=== PATIENT | female | born 1965 | race African-American/Black ===

== ENCOUNTER 2016-12-10 14:33 | Inpatient (IN) | payer MEDICAID, OTHER ==
[~2016-12-10] VITALS: Ht 160 cm; Wt 101.7 kg
[~2016-12-10 14:33] MED LIST: AMOXI1255L PO; DSS100 PO; OMEP20 PO; QUET200T PO; SERT100T12 PO; VITAD1000 PO
[2016-12-10 15:52] LABS: BASOPHILS % (AUTO) 1.2 % (0.0-2.0); EOSINOPHILS % (AUTO) 0.7 % (1.0-6.0); HEMATOCRIT 32.9 % (36-46); HEMOGLOBIN 10.7 g/dL (12.0-16.0); LYMPHOCYTES # (AUTO) 1.5 K/uL (1.0-4.8); LYMPHOCYTES % (AUTO) 23.1 % (22.0-44.0); MEAN CORPUSCULAR HEMOGLOBIN 28.8 pg (26.0-34.0); MEAN CORPUSCULAR HGB CONC 32.6 G/dL (31.0-37.0); MEAN CORPUSCULAR VOLUME 88 fL (80-100); MONOCYTES # (AUTO) 0.6 K/uL (0.1-1.0); MONOCYTES % (AUTO) 9.4 % (2.0-9.0); NEUTROPHILS # (AUTO) 4.3 K/uL (1.8-7.7); NEUTROPHILS % (AUTO) 65.6 % (40.0-70.0); PLATELET COUNT (AUTO) 383 K/uL (150-450); RED BLOOD CELL COUNT(AUTO) 3.74 MIL/uL (4.00-5.20); RED CELL DISTRIBUTION WIDTH 17.6 % (11.5-14.5); WHITE BLOOD COUNT (AUTO) 6.6 K/uL (4.5-11.0)
[2016-12-10] MEDS ORDERED: LORazepam 2 MG TABLET PO ONE (16:30)
[2016-12-10 16:44] LABS: ANION GAP 8 mmol/L (8-16); CALCIUM, TOTAL 8.9 mg/dL (8.8-10.5); CARBON DIOXIDE 25 mmol/L (22-29); CHLORIDE 103 mmol/L (98-107); CREATININE 0.84 mg/dL (0.60-1.30); GLOMERULAR FILTR. RATE CALC > 60 mL/min (>60); POTASSIUM 4.1 mmol/L (3.5-5.1); SODIUM SERUM 136 mmol/L (136-145); UREA NITROGEN, BLOOD 10 mg/dL (7-18)
[2016-12-10 17:02] LABS: ALANINE AMINOTRANSFERASE 48 U/L (12-78); ALBUMIN 3.9 g/dL (3.4-5.0); ASPARTATE AMINOTRANSFERASE 24 U/L (15-37); BILIRUBIN,TOTAL 0.1 mg/dL (0.1-1.0)
[2016-12-10] MEDS ORDERED: LORazepam 2 MG TABLET PO PRN (17:45)
[2016-12-10] MEDS ORDERED: ACETAMINOPHEN 325 MG TABLET PO PRN (17:45)
[2016-12-10] MEDS ORDERED: MAG HYDROX/AL HYDROX/SIMETH ES 30 ML SUSPENSION UDCUP PO PRN (17:45)
[2016-12-10] MEDS ORDERED: HALOPERIDOL 5 MG TABLET PO PRN (17:45)
[2016-12-10] MEDS ORDERED: MAGNESIUM HYDROXIDE SUSPENSION 30 ML UDCUP PO PRN (17:45)
[2016-12-10] MEDS ORDERED: ZOLPIDEM TARTRATE 10 MG TABLET PO PRN (17:45)
[2016-12-10 22:24] VITALS: BP 116/65
[2016-12-10] MEDS ORDERED: PNEUMOCOCCAL VACCINE POLYVALENT 0.5 ML VIAL [PPSV23] IM ONE (22:30)
[2016-12-10] MEDS ORDERED: INFLUENZA VIRUS VACCINE QVS 2016-17 (3YR+)/PF 60 MCG/0.5 ML SYRINGE IM ONE (22:30)
[2016-12-11 06:21] VITALS: BP 140/69
[2016-12-11 08:22] VITALS: BP 124/71
[2016-12-11] MEDS ORDERED: BACITRACIN 28.4 GM OINTMENT TP PRN (08:45)
[2016-12-11] MEDS ORDERED: LOPERAMIDE HCL 2 MG CAPSULE PO PRN (08:45)
[2016-12-11] MEDS ORDERED: IBUPROFEN 600 MG TABLET PO PRN (08:45)
[2016-12-11] MEDS ORDERED: BENZOCAINE/MENTHOL LOZENGE MM PRN (08:45)
[2016-12-11] MEDS ORDERED: MAG HYDROX/AL HYDROX/SIMETH ES 30 ML SUSPENSION UDCUP PO PRN (08:45)
[2016-12-11] MEDS ORDERED: ACETAMINOPHEN 325 MG TABLET PO PRN (08:45)
[2016-12-11] MEDS ORDERED: ONDANSETRON HCL 4 MG TABLET PO PRN (08:45)
[2016-12-11] MEDS ORDERED: PETROLATUM,WHITE 71 GM JELLY TP PRN (08:45)
[2016-12-11] MEDS ORDERED: CloNIDine HCL 0.1 MG TABLET PO PRN (08:45)
[2016-12-11] MEDS ORDERED: MAGNESIUM HYDROXIDE SUSPENSION 30 ML UDCUP PO PRN (08:45)
[2016-12-11] MEDS: CHOLECALCIFEROL (VIT D3) 1,000 UNITS TABLET PO SCH (09:25)
[2016-12-11 16:11] VITALS: BP 126/76
[2016-12-11] MEDS ORDERED: QUEtiapine FUMARATE 200 MG ER TABLET PO SCH (21:00)
[2016-12-11] MEDS: QUEtiapine FUMARATE 200 MG TABLET PO SCH (21:21)
[2016-12-12 00:24] VITALS: BP 128/63
[2016-12-12 03:20] VITALS: BP 120/83
[2016-12-12 08:13] VITALS: BP 153/89
[2016-12-12] MEDS ORDERED: SERTRALINE HCL 100 MG TABLET PO SCH (09:00)
[2016-12-12] MEDS: QUEtiapine FUMARATE 200 MG TABLET PO SCH (09:11)
[2016-12-12] MEDS: CHOLECALCIFEROL (VIT D3) 1,000 UNITS TABLET PO SCH (09:11)
[2016-12-12 10:53] VITALS: BP 126/77
[2016-12-12] MEDS ORDERED: VITAD1000 PO (14:37)
== END 2016-12-12 15:44 | disposition home or self-care (01) | DRG 750 ==
LOC: EMS 14:34 → B2S 20:50
PROVIDERS: ADMIT Psychiatry & Neurology Psychiatry; ATTEND Psychiatry & Neurology Psychiatry
DX: F25.9 Schizoaffective disorder, unspecified (principal); R45.851 Suicidal ideations; E55.9 Vitamin D deficiency, unspecified; K21.9 Gastro-esophageal reflux disease without esophagitis; G47.00 Insomnia, unspecified; E66.9 Obesity, unspecified; K59.00 Constipation, unspecified; Z88.8 Allergy status to other drugs, medicaments and biological substances; Z79.899 Other long term (current) drug therapy; Z98.51 Tubal ligation status; Z68.39 Body mass index [BMI] 39.0-39.9, adult; Z81.8 Family history of other mental and behavioral disorders; Z28.21 Immunization not carried out because of patient refusal
CPT/HCPCS: 99285; G0480

== ENCOUNTER 2017-01-19 12:49 | Inpatient (IN) | payer MEDICAID, OTHER ==
[~2017-01-19] VITALS: Ht 160 cm; Wt 100.7 kg
[~2017-01-19 12:49] MED LIST changes: -AMOXI1255L PO; -DSS100 PO; -OMEP20 PO
[2017-01-19] MEDS ORDERED: LORA2TAB2 PO (13:38)
[2017-01-19] MEDS ORDERED: LURA40 PO (13:38)
[2017-01-19] MEDS ORDERED: DIPH25 PO (13:38)
[2017-01-19] MEDS ORDERED: AMOX TR/POT CLAV 875 MG/125 MG TABLET PO ONE (14:45)
[2017-01-19] MEDS ORDERED: HYDROCODONE/ACETAMINOPHEN 5-325 MG TABLET PO ONE (14:45)
[2017-01-19] MEDS ORDERED: PERTUSS(ACELL),DIPH,TET VAC/PF 0.5 ML VIAL IM ONE (14:45)
[2017-01-19] MEDS ORDERED: LORazepam 1 MG TABLET PO ONE (15:15)
[2017-01-19 15:31] LABS: BASOPHILS # (AUTO) 0.01 K/uL (0.00-0.20); BASOPHILS % (AUTO) 0.1 % (0.0-2.0); EOSINOPHILS # (AUTO) 0.05 K/uL (0.00-0.70); EOSINOPHILS % (AUTO) 0.86 % (1.0-6.0); HEMATOCRIT 38.4 % (36-46); HEMOGLOBIN 12.6 g/dL (12.0-16.0); LYMPHOCYTES # (AUTO) 1.8 K/uL (1.0-4.8); LYMPHOCYTES % (AUTO) 28.8 % (22.0-44.0); MEAN CORPUSCULAR HEMOGLOBIN 28.7 pg (26.0-34.0); MEAN CORPUSCULAR HGB CONC 32.8 G/dL (31.0-37.0); MEAN CORPUSCULAR VOLUME 87 fL (80-100); MONOCYTES # (AUTO) 0.3 K/uL (0.1-1.0); MONOCYTES % (AUTO) 5.1 % (2.0-9.0); PLATELET COUNT (AUTO) 267 K/uL (150-450); RED BLOOD CELL COUNT(AUTO) 4.39 MIL/uL (4.00-5.20); RED CELL DISTRIBUTION WIDTH 17.7 % (11.5-14.5); WHITE BLOOD COUNT (AUTO) 6.1 K/uL (4.5-11.0)
[2017-01-19] MEDS ORDERED: HALOPERIDOL 5 MG TABLET PO PRN (16:00)
[2017-01-19 16:04] LABS: ANION GAP 9 mmol/L (8-16); CALCIUM, TOTAL 9.4 mg/dL (8.8-10.5); CARBON DIOXIDE 27 mmol/L (22-29); CHLORIDE 102 mmol/L (98-107); CREATININE 0.95 mg/dL (0.60-1.30); GLOMERULAR FILTR. RATE CALC > 60 mL/min (>60); POTASSIUM 4.3 mmol/L (3.5-5.1); SODIUM SERUM 138 mmol/L (136-145); UREA NITROGEN, BLOOD 6 mg/dL (7-18)
[2017-01-19 16:14] LABS: ALANINE AMINOTRANSFERASE 34 U/L (12-78); ALBUMIN 3.9 g/dL (3.4-5.0); ASPARTATE AMINOTRANSFERASE 19 U/L (15-37); BILIRUBIN,TOTAL 0.2 mg/dL (0.1-1.0); TOTAL PROTEIN, SERUM 8.2 g/dL (6.4-8.2)
[2017-01-19] MEDS ORDERED: SERTRALINE HCL 100 MG TABLET PO SCH (17:00)
[2017-01-19] MEDS: DiphenhydrAMINE HCL 25 MG CAPSULE PO SCH (17:04)
[2017-01-19 18:31] VITALS: BP 139/80
[2017-01-19] MEDS ORDERED: PNEUMOCOCCAL VACCINE POLYVALENT 0.5 ML VIAL [PPSV23] IM ONE (20:30)
[2017-01-19] MEDS ORDERED: INFLUENZA VIRUS VACCINE QVS 2016-17 (3YR+)/PF 60 MCG/0.5 ML SYRINGE IM ONE (20:30)
[2017-01-19] MEDS ORDERED: MAGNESIUM HYDROXIDE SUSPENSION 30 ML UDCUP PO PRN (21:45)
[2017-01-19] MEDS ORDERED: MAG HYDROX/AL HYDROX/SIMETH ES 30 ML SUSPENSION UDCUP PO PRN (21:45)
[2017-01-19] MEDS ORDERED: CloNIDine HCL 0.1 MG TABLET PO PRN (21:45)
[2017-01-19] MEDS ORDERED: PETROLATUM,WHITE 71 GM JELLY TP PRN (21:45)
[2017-01-19] MEDS ORDERED: BENZOCAINE/MENTHOL LOZENGE MM PRN (21:45)
[2017-01-19] MEDS ORDERED: ONDANSETRON HCL 4 MG TABLET PO PRN (21:45)
[2017-01-19] MEDS ORDERED: ACETAMINOPHEN 325 MG TABLET PO PRN (21:45)
[2017-01-19] MEDS ORDERED: IBUPROFEN 600 MG TABLET PO PRN (21:45)
[2017-01-19] MEDS ORDERED: BACITRACIN 28.4 GM OINTMENT TP PRN (21:45)
[2017-01-19] MEDS ORDERED: LOPERAMIDE HCL 2 MG CAPSULE PO PRN (21:45)
[2017-01-19] MEDS: QUEtiapine FUMARATE 200 MG TABLET PO SCH (22:17)
[2017-01-19] MEDS: ZOLPIDEM TARTRATE 10 MG TABLET PO PRN (23:56)
[2017-01-20 00:32] VITALS: BP 138/80
[2017-01-20 08:23] VITALS: BP 118/70
[2017-01-20] MEDS: LORazepam 2 MG TABLET PO PRN (09:05)
[2017-01-20] MEDS: CHOLECALCIFEROL (VIT D3) 1,000 UNITS TABLET PO SCH (09:05)
[2017-01-20] MEDS: QUEtiapine FUMARATE 200 MG TABLET PO SCH ×2 (09:06→20:16)
[2017-01-20] MEDS: DiphenhydrAMINE HCL 25 MG CAPSULE PO SCH ×2 (09:06→16:15)
[2017-01-20] MEDS: SERTRALINE HCL 100 MG TABLET PO SCH (09:06)
[2017-01-20 16:04] VITALS: BP 127/78
[2017-01-20] MEDS ORDERED: QUEtiapine FUMARATE 200 MG TABLET PO SCH (21:00)
[2017-01-20] MEDS: ZOLPIDEM TARTRATE 10 MG TABLET PO PRN (21:02)
[2017-01-21 00:25] VITALS: BP 110/81
[2017-01-21] MEDS: LORazepam 2 MG TABLET PO PRN (01:41)
[2017-01-21 08:23] VITALS: BP 148/85
[2017-01-21] MEDS: QUEtiapine FUMARATE 200 MG TABLET PO SCH ×2 (08:36→20:41)
[2017-01-21] MEDS: DiphenhydrAMINE HCL 25 MG CAPSULE PO SCH ×2 (08:36→16:23)
[2017-01-21] MEDS: CHOLECALCIFEROL (VIT D3) 1,000 UNITS TABLET PO SCH (08:36)
[2017-01-21] MEDS: SERTRALINE HCL 100 MG TABLET PO SCH (08:36)
[2017-01-21] MEDS ORDERED: QUEtiapine FUMARATE 200 MG TABLET PO SCH (09:00)
[2017-01-21 16:07] VITALS: BP 128/73
[2017-01-21] MEDS: ZOLPIDEM TARTRATE 10 MG TABLET PO PRN (22:14)
[2017-01-22 05:38] VITALS: BP 136/85
[2017-01-22] MEDS ORDERED: SERT100T12 PO (08:53)
[2017-01-22 09:00] VITALS: BP 124/75
[2017-01-22] MEDS: CHOLECALCIFEROL (VIT D3) 1,000 UNITS TABLET PO SCH (09:06)
[2017-01-22] MEDS: DiphenhydrAMINE HCL 25 MG CAPSULE PO SCH (09:06)
[2017-01-22] MEDS: SERTRALINE HCL 100 MG TABLET PO SCH (09:07)
[2017-01-22] MEDS: QUEtiapine FUMARATE 200 MG TABLET PO SCH (09:07)
== END 2017-01-22 10:35 | disposition home or self-care (01) | DRG 750 ==
LOC: EMS 12:50 → B2S 16:32
DX: F25.1 Schizoaffective disorder, depressive type (principal); R45.851 Suicidal ideations; E55.9 Vitamin D deficiency, unspecified; I10 Essential (primary) hypertension; E78.5 Hyperlipidemia, unspecified; I25.10 Atherosclerotic heart disease of native coronary artery without angina pectoris; E66.9 Obesity, unspecified; K59.00 Constipation, unspecified; K21.9 Gastro-esophageal reflux disease without esophagitis; G47.00 Insomnia, unspecified; M54.5 Low back pain; Z98.51 Tubal ligation status; Z88.8 Allergy status to other drugs, medicaments and biological substances; Z79.899 Other long term (current) drug therapy; Z68.39 Body mass index [BMI] 39.0-39.9, adult
CPT/HCPCS: 99285; G0480

== ENCOUNTER 2017-03-24 16:08 | Inpatient (IN) | payer MEDICAID, OTHER ==
[~2017-03-24] VITALS: Ht 160 cm; Wt 100.9 kg
[~2017-03-24 16:08] MED LIST changes: +DIPH25 PO
[2017-03-24 16:53] LABS: BASOPHILS % (AUTO) 1.4 % (0.0-2.0); EOSINOPHILS % (AUTO) 0.7 % (1.0-6.0); HEMATOCRIT 37.3 % (36-46); HEMOGLOBIN 11.7 g/dL (12.0-16.0); LYMPHOCYTES # (AUTO) 1.7 K/uL (1.0-4.8); LYMPHOCYTES % (AUTO) 23.4 % (22.0-44.0); MEAN CORPUSCULAR HEMOGLOBIN 27.5 pg (26.0-34.0); MEAN CORPUSCULAR HGB CONC 31.2 G/dL (31.0-37.0); MEAN CORPUSCULAR VOLUME 88 fL (80-100); MONOCYTES # (AUTO) 0.6 K/uL (0.1-1.0); MONOCYTES % (AUTO) 8.1 % (2.0-9.0); NEUTROPHILS # (AUTO) 4.9 K/uL (1.8-7.7); NEUTROPHILS % (AUTO) 66.4 % (40.0-70.0); PLATELET COUNT (AUTO) 366 K/uL (150-450); RED BLOOD CELL COUNT(AUTO) 4.25 MIL/uL (4.00-5.20); RED CELL DISTRIBUTION WIDTH 16.4 % (11.5-14.5); WHITE BLOOD COUNT (AUTO) 7.4 K/uL (4.5-11.0)
[2017-03-24 17:13] LABS: ANION GAP 11 mmol/L (8-16); CALCIUM, TOTAL 9.3 mg/dL (8.8-10.5); CARBON DIOXIDE 24 mmol/L (22-29); CHLORIDE 101 mmol/L (98-107); CREATININE 0.83 mg/dL (0.60-1.30); GLOMERULAR FILTR. RATE CALC > 60 mL/min (>60); POTASSIUM 3.9 mmol/L (3.5-5.1); SODIUM SERUM 136 mmol/L (136-145); UREA NITROGEN, BLOOD 8 mg/dL (7-18)
[2017-03-24 17:19] LABS: ALANINE AMINOTRANSFERASE 31 U/L (12-78); ALBUMIN 4.1 g/dL (3.4-5.0); ASPARTATE AMINOTRANSFERASE 19 U/L (15-37); BILIRUBIN,TOTAL 0.1 mg/dL (0.1-1.0); TOTAL PROTEIN, SERUM 8.6 g/dL (6.4-8.2)
[2017-03-24] MEDS ORDERED: ZOLPIDEM TARTRATE 10 MG TABLET PO PRN (18:00)
[2017-03-24 19:15] VITALS: BP 149/80
[2017-03-24] MEDS: LORazepam 2 MG TABLET PO PRN (20:24)
[2017-03-24 21:24] LABS: APPEARANCE,URINE TURBID (CLEAR); GLUCOSE, URINE (UA) NEGATIVE (NEGATIVE); KETONES,URINE NEGATIVE (NEGATIVE); PROTEIN,URINE NEGATIVE (NEGATIVE)
[2017-03-24] MEDS: HALOPERIDOL 5 MG TABLET PO PRN (21:29)
[2017-03-24 21:30] LABS: ADD UA MICROSCOPIC YES; LEUKOCYTE ESTERASE ,URINE TRACE (NEGATIVE); OCCULT BLOOD,URINE TRACE (NEGATIVE); SQUAMOUS EPITHELIAL CELL,UR Many /LPF (None Seen)
[2017-03-24 21:31] LABS: CALCIUM OXALATE CRYSTALS,UR Moderate /LPF (None Seen)
[2017-03-25 08:07] LABS: CHOL/HDL RATIO 3.1 (3.9-5.7)
[2017-03-25] MEDS ORDERED: LOPERAMIDE HCL 2 MG CAPSULE PO PRN (08:15)
[2017-03-25] MEDS ORDERED: MAG HYDROX/AL HYDROX/SIMETH ES 30 ML SUSPENSION UDCUP PO PRN (08:15)
[2017-03-25] MEDS ORDERED: ACETAMINOPHEN 325 MG TABLET PO PRN (08:15)
[2017-03-25] MEDS ORDERED: BACITRACIN 28.4 GM OINTMENT TP PRN (08:15)
[2017-03-25] MEDS ORDERED: MAGNESIUM HYDROXIDE SUSPENSION 30 ML UDCUP PO PRN (08:15)
[2017-03-25] MEDS ORDERED: CloNIDine HCL 0.1 MG TABLET PO PRN (08:15)
[2017-03-25] MEDS ORDERED: IBUPROFEN 600 MG TABLET PO PRN (08:15)
[2017-03-25] MEDS ORDERED: PETROLATUM,WHITE 71 GM JELLY TP PRN (08:15)
[2017-03-25] MEDS ORDERED: ONDANSETRON HCL 4 MG TABLET PO PRN (08:15)
[2017-03-25] MEDS ORDERED: BENZOCAINE/MENTHOL LOZENGE [8 LOZENGES/PACKET] MM PRN (08:30)
[2017-03-25 09:10] VITALS: BP 124/77
[2017-03-25] MEDS: CHOLECALCIFEROL (VIT D3) 1,000 UNITS TABLET PO SCH (10:01)
[2017-03-25] MEDS: NITROFURANTOIN/NITROFURAN MAC 100 MG CAPSULE [MACROBID] PO SCH ×2 (10:03→16:58)
[2017-03-25] MEDS: LORazepam 2 MG TABLET PO PRN (10:07)
[2017-03-25] MEDS: HALOPERIDOL 5 MG TABLET PO PRN (10:07)
[2017-03-25] MEDS ORDERED: DIPH25 PO (10:15)
[2017-03-25] MEDS: QUEtiapine FUMARATE 200 MG TABLET PO SCH ×2 (10:20→21:37)
[2017-03-25] MEDS: DiphenhydrAMINE HCL 25 MG CAPSULE PO SCH ×2 (10:20→16:59)
[2017-03-25] MEDS: SERTRALINE HCL 100 MG TABLET PO SCH (11:13)
[2017-03-25 16:20] VITALS: BP 117/81
[2017-03-26 08:00] VITALS: BP 138/85
[2017-03-26] MEDS: QUEtiapine FUMARATE 200 MG TABLET PO SCH (09:57)
[2017-03-26] MEDS: CHOLECALCIFEROL (VIT D3) 1,000 UNITS TABLET PO SCH (09:57)
[2017-03-26] MEDS: DiphenhydrAMINE HCL 25 MG CAPSULE PO SCH ×2 (09:57→16:35)
[2017-03-26] MEDS: NITROFURANTOIN/NITROFURAN MAC 100 MG CAPSULE [MACROBID] PO SCH ×2 (09:58→16:36)
[2017-03-26] MEDS: SERTRALINE HCL 100 MG TABLET PO SCH (09:58)
== END 2017-03-26 19:00 | disposition left against medical advice (07) | DRG 750 ==
LOC: EMS 16:10 → 3EI 18:34
PROVIDERS: ADMIT Psychiatry & Neurology Psychiatry; ATTEND Psychiatry & Neurology Psychiatry
DX: F20.0 Paranoid schizophrenia (principal); N39.0 Urinary tract infection, site not specified; R45.851 Suicidal ideations; E55.9 Vitamin D deficiency, unspecified; E66.9 Obesity, unspecified; F32.9 Major depressive disorder, single episode, unspecified; G47.00 Insomnia, unspecified; K21.9 Gastro-esophageal reflux disease without esophagitis; K59.00 Constipation, unspecified; Z98.51 Tubal ligation status; Z88.8 Allergy status to other drugs, medicaments and biological substances; Z79.899 Other long term (current) drug therapy; Z68.39 Body mass index [BMI] 39.0-39.9, adult
CPT/HCPCS: 87086; 99285; G0480; Q0162

== ENCOUNTER 2018-03-11 14:24 | Inpatient (IN) | payer MEDICAID, OTHER ==
[~2018-03-11] VITALS: Ht 160 cm; Wt 106.2 kg
[~2018-03-11 14:24] MED LIST changes: -DIPH25 PO; +LEVO25TA9 PO; +SIMV-259 PO
[2018-03-11] MEDS ORDERED: DIPH50 PO (14:49)
[2018-03-11 15:54] LABS: EOSINOPHILS % (AUTO) 0.2 % (1.0-6.0); HEMATOCRIT 38.6 % (36-46); HEMOGLOBIN 12.8 g/dL (12.0-16.0); LYMPHOCYTES # (AUTO) 1.4 K/uL (1.0-4.8); LYMPHOCYTES % (AUTO) 20.2 % (22.0-44.0); MEAN CORPUSCULAR HEMOGLOBIN 29.7 pg (26.0-34.0); MEAN CORPUSCULAR HGB CONC 33.2 G/dL (31.0-37.0); MEAN CORPUSCULAR VOLUME 89 fL (80-100); MONOCYTES # (AUTO) 0.6 K/uL (0.1-1.0); MONOCYTES % (AUTO) 8.3 % (2.0-9.0); NEUTROPHILS % (AUTO) 70.3 % (40.0-70.0); PLATELET COUNT (AUTO) 321 K/uL (150-450); RED BLOOD CELL COUNT(AUTO) 4.31 MIL/uL (4.00-5.20); RED CELL DISTRIBUTION WIDTH 15.8 % (11.5-14.5)
[2018-03-11 16:03] LABS: ANION GAP 7 mmol/L (8-16); CALCIUM, TOTAL 9.4 mg/dL (8.8-10.5); CARBON DIOXIDE 27 mmol/L (22-29); CHLORIDE 104 mmol/L (98-107); GLOMERULAR FILTR. RATE CALC > 60 mL/min (>60); GLUCOSE,RANDOM 94 mg/dL (70-110); POTASSIUM 4.1 mmol/L (3.5-5.1); SODIUM SERUM 138 mmol/L (136-145); UREA NITROGEN, BLOOD 9 mg/dL (7-18)
[2018-03-11 16:09] LABS: ALANINE AMINOTRANSFERASE 51 U/L (12-78); ALBUMIN 4.3 g/dL (3.4-5.0); ALKALINE PHOSPHATASE 76 U/L (46-116); ASPARTATE AMINOTRANSFERASE 28 U/L (15-37); BILIRUBIN,TOTAL 0.2 mg/dL (0.1-1.0); TOTAL PROTEIN, SERUM 8.5 g/dL (6.4-8.2)
[2018-03-11 16:54] LABS: AMPHET/METH SCREEN,URINE NEGATIVE (NEGATIVE); BARBITURATE SCREEN, URINE NEGATIVE (NEGATIVE); BENZODIAZEPINES SCREEN,URINE NEGATIVE (NEGATIVE); CANNABINOID SCREEN,URINE NEGATIVE (NEGATIVE); COCAINE SCREEN,URINE NEGATIVE (NEGATIVE); METHADONE SCREEN, URINE NEGATIVE (NEGATIVE); OPIATE SCREEN,URINE NEGATIVE (NEGATIVE); PHENCYCLIDINE SCREEN,URINE NEGATIVE (NEGATIVE)
[2018-03-11] MEDS ORDERED: LORazepam 2 MG TABLET PO ONE (17:00)
[2018-03-11] MEDS ORDERED: ZOLPIDEM TARTRATE 10 MG TABLET PO PRN (19:00)
[2018-03-11] MEDS ORDERED: HALOPERIDOL 5 MG TABLET PO PRN (19:00)
[2018-03-11 19:45] LABS: CHOLESTEROL 183 mg/dL (131-200); HDL CHOLESTEROL 62 mg/dL (40-60); LDL CHOL (CALC.) 105 mg/dL (0-130); THYROID STIMULATING HORMONE 3.33 uIU/mL (0.36-3.74); TRIGLYCERIDES 79 mg/dL (15-150)
[2018-03-11 20:30] VITALS: BP 138/85
[2018-03-11] MEDS ORDERED: IBUPROFEN 600 MG TABLET PO PRN (21:45)
[2018-03-11] MEDS ORDERED: LOPERAMIDE HCL 2 MG CAPSULE PO PRN (21:45)
[2018-03-11] MEDS ORDERED: ALBUTEROL SULFATE HFA 90 MCG/PUFF 8 GM INHALER IH PRN (21:45)
[2018-03-11] MEDS ORDERED: MAG HYDROX/AL HYDROX/SIMETH ES 30 ML SUSPENSION UDCUP PO PRN (21:45)
[2018-03-11] MEDS ORDERED: PETROLATUM,WHITE 71 GM JELLY TP PRN (21:45)
[2018-03-11] MEDS ORDERED: BENZOCAINE/MENTHOL LOZENGE MM PRN (21:45)
[2018-03-11] MEDS ORDERED: CloNIDine HCL 0.1 MG TABLET PO PRN (21:45)
[2018-03-11] MEDS ORDERED: BACITRACIN 28.4 GM OINTMENT TP PRN (21:45)
[2018-03-11] MEDS ORDERED: ONDANSETRON HCL 4 MG TABLET PO PRN (21:45)
[2018-03-11] MEDS ORDERED: ACETAMINOPHEN 325 MG TABLET PO PRN (21:45)
[2018-03-12 05:52] VITALS: BP 143/90
[2018-03-12 06:30] LABS: CHOL/HDL RATIO 2.8 (3.9-5.7)
[2018-03-12] MEDS ORDERED: DiphenhydrAMINE HCL 25 MG CAPSULE PO PRN (08:30)
[2018-03-12 08:40] VITALS: BP 158/99
[2018-03-12] MEDS: ATENOLOL 50 MG TABLET PO SCH (09:13)
[2018-03-12] MEDS: SERTRALINE HCL 100 MG TABLET PO SCH ×2 (09:13→16:01)
[2018-03-12] MEDS: OMEPRAZOLE 20 MG CAPSULE PO SCH (09:16)
[2018-03-12] MEDS: CHOLECALCIFEROL (VIT D3) 1,000 UNITS TABLET PO SCH (09:17)
[2018-03-12] MEDS: QUEtiapine FUMARATE 200 MG TABLET PO SCH ×2 (09:17→16:00)
[2018-03-12] MEDS: DOCUSATE SODIUM 100 MG CAPSULE PO SCH (09:17)
[2018-03-12] MEDS: LORazepam 1 MG TABLET PO SCH ×2 (09:18→16:00)
[2018-03-12] MEDS: MAGNESIUM HYDROXIDE SUSPENSION 30 ML UDCUP PO PRN (16:01)
[2018-03-12 16:41] VITALS: BP 137/82
[2018-03-13 00:30] VITALS: BP 114/68
[2018-03-13] MEDS: MAGNESIUM HYDROXIDE SUSPENSION 30 ML UDCUP PO PRN (00:38)
[2018-03-13 08:22] VITALS: BP 111/68
[2018-03-13] MEDS: QUEtiapine FUMARATE 200 MG TABLET PO SCH ×2 (08:52→16:33)
[2018-03-13] MEDS: OMEPRAZOLE 20 MG CAPSULE PO SCH (08:52)
[2018-03-13] MEDS: CHOLECALCIFEROL (VIT D3) 1,000 UNITS TABLET PO SCH (08:52)
[2018-03-13] MEDS: DOCUSATE SODIUM 100 MG CAPSULE PO SCH (08:52)
[2018-03-13] MEDS: LORazepam 1 MG TABLET PO SCH ×2 (08:52→16:34)
[2018-03-13] MEDS: SERTRALINE HCL 100 MG TABLET PO SCH ×2 (08:53→16:33)
[2018-03-13] MEDS: ATENOLOL 50 MG TABLET PO SCH (08:53)
[2018-03-13] MEDS: LORazepam 2 MG TABLET PO PRN ×2 (11:03→21:21)
[2018-03-13 17:15] VITALS: BP 126/71
[2018-03-14 08:41] VITALS: BP 114/75
[2018-03-14] MEDS: OMEPRAZOLE 20 MG CAPSULE PO SCH (09:00)
[2018-03-14] MEDS: DOCUSATE SODIUM 100 MG CAPSULE PO SCH (09:00)
[2018-03-14] MEDS: ATENOLOL 50 MG TABLET PO SCH (09:00)
[2018-03-14] MEDS: LORazepam 1 MG TABLET PO SCH ×2 (09:12→16:28)
[2018-03-14] MEDS: QUEtiapine FUMARATE 200 MG TABLET PO SCH ×2 (09:12→16:28)
[2018-03-14] MEDS: CHOLECALCIFEROL (VIT D3) 1,000 UNITS TABLET PO SCH (09:13)
[2018-03-14] MEDS: SERTRALINE HCL 100 MG TABLET PO SCH ×2 (09:13→16:27)
[2018-03-14 17:06] VITALS: BP 128/74
[2018-03-15 03:00] VITALS: BP 123/77
[2018-03-15] MEDS: LORazepam 2 MG TABLET PO PRN ×2 (03:32→20:02)
[2018-03-15 08:30] VITALS: BP 126/78
[2018-03-15] MEDS: DOCUSATE SODIUM 100 MG CAPSULE PO SCH (09:00)
[2018-03-15] MEDS: ATENOLOL 50 MG TABLET PO SCH (09:00)
[2018-03-15] MEDS: OMEPRAZOLE 20 MG CAPSULE PO SCH (09:00)
[2018-03-15] MEDS: CHOLECALCIFEROL (VIT D3) 1,000 UNITS TABLET PO SCH (09:06)
[2018-03-15] MEDS: SERTRALINE HCL 100 MG TABLET PO SCH ×2 (09:06→16:05)
[2018-03-15] MEDS: QUEtiapine FUMARATE 200 MG TABLET PO SCH ×2 (09:07→16:06)
[2018-03-15] MEDS: LORazepam 1 MG TABLET PO SCH ×2 (09:08→16:05)
[2018-03-15 16:45] VITALS: BP 131/66
[2018-03-16 08:05] VITALS: BP 132/84
[2018-03-16] MEDS: OMEPRAZOLE 20 MG CAPSULE PO SCH ×2 (09:00→09:34)
[2018-03-16] MEDS: DOCUSATE SODIUM 100 MG CAPSULE PO SCH (09:00)
[2018-03-16] MEDS: ATENOLOL 50 MG TABLET PO SCH (09:00)
[2018-03-16] MEDS: SERTRALINE HCL 100 MG TABLET PO SCH (09:33)
[2018-03-16] MEDS: LORazepam 1 MG TABLET PO SCH (09:33)
[2018-03-16] MEDS: CHOLECALCIFEROL (VIT D3) 1,000 UNITS TABLET PO SCH (09:33)
[2018-03-16] MEDS: QUEtiapine FUMARATE 200 MG TABLET PO SCH (09:33)
[2018-03-16] MEDS ORDERED: ATEN50TA PO (11:12)
[2018-03-16] MEDS ORDERED: VITAD1000 PO (11:12)
[2018-03-16] MEDS ORDERED: DSS100 PO (11:13)
[2018-03-16] MEDS ORDERED: LORA1TAB3 PO (11:14)
[2018-03-16] MEDS ORDERED: OMEP20 PO (11:14)
== END 2018-03-16 13:50 | disposition home or self-care (01) | DRG 750 ==
LOC: EMS 14:24 → 3EI 20:03
PROVIDERS: ADMIT Psychiatry & Neurology Child & Adolescent Psychiatry; ATTEND Psychiatry & Neurology Psychiatry
DX: F25.9 Schizoaffective disorder, unspecified (principal); R45.851 Suicidal ideations; Z68.41 Body mass index [BMI] 40.0-44.9, adult; E66.01 Morbid (severe) obesity due to excess calories; I10 Essential (primary) hypertension; E55.9 Vitamin D deficiency, unspecified; E03.9 Hypothyroidism, unspecified; Z81.8 Family history of other mental and behavioral disorders; F41.9 Anxiety disorder, unspecified; G47.00 Insomnia, unspecified; K21.9 Gastro-esophageal reflux disease without esophagitis; Z86.73 Personal history of transient ischemic attack (TIA), and cerebral infarction without residual deficits; Z98.51 Tubal ligation status; F32.9 Major depressive disorder, single episode, unspecified; M54.5 Low back pain; Z56.0 Unemployment, unspecified; Z88.8 Allergy status to other drugs, medicaments and biological substances; Z79.899 Other long term (current) drug therapy
CPT/HCPCS: 82306; 84439; 84443; 99285; G0480

== ENCOUNTER 2018-06-25 13:39 | Inpatient (IN) | payer MEDICAID, OTHER ==
[~2018-06-25] VITALS: Ht 160 cm; Wt 103.7 kg
[~2018-06-25 13:39] MED LIST changes: +ATEN50TA PO; +DSS100 PO; -LEVO25TA9 PO; +LORA1TAB3 PO; +OMEP20 PO; -SIMV-259 PO
[2018-06-25] MEDS ORDERED: DIPH25 PO (13:42)
[2018-06-25 14:52] LABS: BASOPHILS % (AUTO) 0.4 % (0.0-2.0); HEMATOCRIT 35.9 % (36-46); HEMOGLOBIN 11.8 g/dL (12.0-16.0); LYMPHOCYTES # (AUTO) 1.9 K/uL (1.0-4.8); LYMPHOCYTES % (AUTO) 33.7 % (22.0-44.0); MEAN CORPUSCULAR HEMOGLOBIN 27.1 pg (26.0-34.0); MEAN CORPUSCULAR HGB CONC 32.8 G/dL (31.0-37.0); MEAN CORPUSCULAR VOLUME 83 fL (80-100); MONOCYTES # (AUTO) 0.6 K/uL (0.1-1.0); MONOCYTES % (AUTO) 10.1 % (2.0-9.0); NEUTROPHILS # (AUTO) 3.1 K/uL (1.8-7.7); NEUTROPHILS % (AUTO) 54.8 % (40.0-70.0); PLATELET COUNT (AUTO) 279 K/uL (150-450); RED BLOOD CELL COUNT(AUTO) 4.34 MIL/uL (4.00-5.20); RED CELL DISTRIBUTION WIDTH 16.5 % (11.5-14.5)
[2018-06-25] MEDS ORDERED: QUEtiapine FUMARATE 100 MG TABLET PO ONE (15:00)
[2018-06-25] MEDS ORDERED: LORazepam 2 MG TABLET PO ONE (15:00)
[2018-06-25 15:01] LABS: ANION GAP 10 mmol/L (8-16); CALCIUM, TOTAL 8.8 mg/dL (8.8-10.5); CARBON DIOXIDE 24 mmol/L (22-29); CHLORIDE 105 mmol/L (98-107); CREATININE 0.77 mg/dL (0.60-1.30); GLOMERULAR FILTR. RATE CALC > 60 mL/min (>60); GLUCOSE,RANDOM 99 mg/dL (70-110); POTASSIUM 3.7 mmol/L (3.5-5.1); SODIUM SERUM 139 mmol/L (136-145); UREA NITROGEN, BLOOD 9 mg/dL (7-18)
[2018-06-25 15:07] LABS: ALANINE AMINOTRANSFERASE 32 U/L (12-78); ALKALINE PHOSPHATASE 79 U/L (46-116); ASPARTATE AMINOTRANSFERASE 20 U/L (15-37); BILIRUBIN,TOTAL 0.1 mg/dL (0.1-1.0)
[2018-06-25] MEDS ORDERED: ZOLPIDEM TARTRATE 10 MG TABLET PO PRN (15:45)
[2018-06-25] MEDS ORDERED: HALOPERIDOL 5 MG TABLET PO PRN (15:45)
[2018-06-25 16:17] LABS: AMPHET/METH SCREEN,URINE NEGATIVE (NEGATIVE); BARBITURATE SCREEN, URINE NEGATIVE (NEGATIVE); BENZODIAZEPINES SCREEN,URINE POSITIVE (NEGATIVE); CANNABINOID SCREEN,URINE NEGATIVE (NEGATIVE); COCAINE SCREEN,URINE NEGATIVE (NEGATIVE); METHADONE SCREEN, URINE NEGATIVE (NEGATIVE); OPIATE SCREEN,URINE NEGATIVE (NEGATIVE); PHENCYCLIDINE SCREEN,URINE NEGATIVE (NEGATIVE)
[2018-06-25 19:29] VITALS: BP 124/73
[2018-06-25 23:08] LABS: GLUCOSE, URINE (UA) NEGATIVE (NEGATIVE); KETONES,URINE TRACE mg/dL (NEGATIVE); LEUKOCYTE ESTERASE ,URINE NEGATIVE (NEGATIVE); NITRATE,URINE NEGATIVE (NEGATIVE); OCCULT BLOOD,URINE NEGATIVE (NEGATIVE); PROTEIN,URINE NEGATIVE (NEGATIVE); UROBILINOGEN,URINE 0.2 mg/dL (<=1.0)
[2018-06-25 23:14] LABS: BILIRUBIN,URINE PRELIM. POSITIVE (NEGATIVE)
[2018-06-25 23:15] LABS: APPEARANCE,URINE CLOUDY (CLEAR)
[2018-06-25 23:21] LABS: BACTERIA,URINE Few /HPF (None Seen); CALCIUM OXALATE CRYSTALS,UR Many /LPF (None Seen); RBC,URINE 0-2 /HPF (0-2); SQUAMOUS EPITHELIAL CELL,UR Many /LPF (None Seen); WBC,URINE 0-2 /HPF (0-5)
[2018-06-26 08:18] LABS: CHOL/HDL RATIO 3.4 (3.9-5.7)
[2018-06-26 08:58] VITALS: BP 146/78
[2018-06-26] MEDS: LORazepam 2 MG TABLET PO PRN ×2 (09:21→18:12)
[2018-06-26] MEDS ORDERED: MAG HYDROX/AL HYDROX/SIMETH ES 30 ML SUSPENSION UDCUP PO PRN (11:30)
[2018-06-26] MEDS ORDERED: LOPERAMIDE HCL 2 MG CAPSULE PO PRN (11:30)
[2018-06-26] MEDS ORDERED: BENZOCAINE/MENTHOL LOZENGE MM PRN (11:30)
[2018-06-26] MEDS ORDERED: ONDANSETRON HCL 4 MG TABLET PO PRN (11:30)
[2018-06-26] MEDS ORDERED: PETROLATUM,WHITE 71 GM JELLY TP PRN (11:30)
[2018-06-26] MEDS ORDERED: BACITRACIN 28.4 GM OINTMENT TP PRN (11:30)
[2018-06-26] MEDS ORDERED: ACETAMINOPHEN 325 MG TABLET PO PRN (11:30)
[2018-06-26] MEDS ORDERED: IBUPROFEN 600 MG TABLET PO PRN (11:30)
[2018-06-26] MEDS ORDERED: MAGNESIUM HYDROXIDE SUSPENSION 30 ML UDCUP PO PRN (11:30)
[2018-06-26] MEDS ORDERED: CloNIDine HCL 0.1 MG TABLET PO PRN (11:30)
[2018-06-26 16:35] VITALS: BP 136/83
[2018-06-26] MEDS: QUEtiapine FUMARATE 200 MG TABLET PO SCH (16:56)
[2018-06-26] MEDS: SERTRALINE HCL 100 MG TABLET PO SCH (16:56)
[2018-06-27] MEDS ORDERED: OMEPRAZOLE 20 MG CAPSULE PO SCH (09:00)
[2018-06-27] MEDS ORDERED: ATENOLOL 50 MG TABLET PO SCH (09:00)
[2018-06-27] MEDS ORDERED: CHOLECALCIFEROL (VIT D3) 1,000 UNITS TABLET PO SCH (09:00)
[2018-06-27] MEDS ORDERED: DOCUSATE SODIUM 100 MG CAPSULE PO SCH (09:00)
[2018-06-27] MEDS: QUEtiapine FUMARATE 200 MG TABLET PO SCH (09:16)
[2018-06-27] MEDS: SERTRALINE HCL 100 MG TABLET PO SCH (09:16)
[2018-06-27 12:22] VITALS: BP 148/86
[2018-06-27] MEDS ORDERED: ATEN50TA PO (13:55)
[2018-06-27] MEDS ORDERED: VITAD1000 PO (13:55)
[2018-06-27] MEDS ORDERED: DSS100 PO (13:56)
[2018-06-27] MEDS ORDERED: OMEP20 PO (13:56)
== END 2018-06-27 16:20 | disposition home or self-care (01) | DRG 750 ==
LOC: EMS 13:40 → 3EI 18:42
DX: F25.1 Schizoaffective disorder, depressive type (principal); R45.851 Suicidal ideations; I10 Essential (primary) hypertension; E55.9 Vitamin D deficiency, unspecified; E66.9 Obesity, unspecified; F41.9 Anxiety disorder, unspecified; G47.00 Insomnia, unspecified; M54.5 Low back pain; D64.9 Anemia, unspecified; K21.9 Gastro-esophageal reflux disease without esophagitis; Z88.8 Allergy status to other drugs, medicaments and biological substances; Z91.5 Personal history of self-harm; Z98.51 Tubal ligation status; Z79.899 Other long term (current) drug therapy
CPT/HCPCS: 93005; 99285; G0480

== ENCOUNTER 2018-11-25 13:00 | Inpatient (IN) | payer MEDICAID, OTHER ==
[~2018-11-25] VITALS: Ht 160 cm; Wt 103.4 kg
[~2018-11-25 13:00] MED LIST changes: -LORA1TAB3 PO
[2018-11-25 14:30] LABS: BASOPHILS % (AUTO) 0.9 % (0.0-2.0); EOSINOPHILS % (AUTO) 0.8 % (1.0-6.0); HEMATOCRIT 38.1 % (36-46); HEMOGLOBIN 12.7 g/dL (12.0-16.0); LYMPHOCYTES # (AUTO) 1.7 K/uL (1.0-4.8); LYMPHOCYTES % (AUTO) 29.7 % (22.0-44.0); MEAN CORPUSCULAR HEMOGLOBIN 29.3 pg (26.0-34.0); MEAN CORPUSCULAR HGB CONC 33.3 G/dL (31.0-37.0); MEAN CORPUSCULAR VOLUME 88 fL (80-100); MONOCYTES # (AUTO) 0.6 K/uL (0.1-1.0); MONOCYTES % (AUTO) 9.8 % (2.0-9.0); NEUTROPHILS # (AUTO) 3.4 K/uL (1.8-7.7); NEUTROPHILS % (AUTO) 58.8 % (40.0-70.0); PLATELET COUNT (AUTO) 272 K/uL (150-450); RED BLOOD CELL COUNT(AUTO) 4.32 MIL/uL (4.00-5.20); RED CELL DISTRIBUTION WIDTH 14.7 % (11.5-14.5)
[2018-11-25 14:38] LABS: ANION GAP 11 mmol/L (8-16); CALCIUM, TOTAL 9.1 mg/dL (8.8-10.5); CARBON DIOXIDE 25 mmol/L (22-29); CHLORIDE 103 mmol/L (98-107); CREATININE 0.75 mg/dL (0.60-1.30); GLOMERULAR FILTR. RATE CALC > 60 mL/min (>60); GLUCOSE,RANDOM 92 mg/dL (70-110); SODIUM SERUM 139 mmol/L (136-145); UREA NITROGEN, BLOOD 9 mg/dL (7-18)
[2018-11-25 14:43] LABS: ALANINE AMINOTRANSFERASE 47 U/L (12-78); ALKALINE PHOSPHATASE 89 U/L (46-116); ASPARTATE AMINOTRANSFERASE 30 U/L (15-37); BILIRUBIN,TOTAL 0.2 mg/dL (0.1-1.0); TOTAL PROTEIN, SERUM 8.2 g/dL (6.4-8.2)
[2018-11-25] MEDS ORDERED: LORazepam 2 MG TABLET PO ONE (14:45)
[2018-11-25] MEDS ORDERED: QUEtiapine FUMARATE 100 MG TABLET PO ONE (14:45)
[2018-11-25] MEDS ORDERED: ZOLPIDEM TARTRATE 10 MG TABLET PO PRN (15:15)
[2018-11-25] MEDS ORDERED: QUEtiapine FUMARATE 100 MG TABLET PO PRN (15:15)
[2018-11-25 15:19] LABS: AMPHET/METH SCREEN,URINE NEGATIVE (NEGATIVE); BARBITURATE SCREEN, URINE NEGATIVE (NEGATIVE); BENZODIAZEPINES SCREEN,URINE POSITIVE (NEGATIVE); CANNABINOID SCREEN,URINE NEGATIVE (NEGATIVE); COCAINE SCREEN,URINE NEGATIVE (NEGATIVE); METHADONE SCREEN, URINE NEGATIVE (NEGATIVE); OPIATE SCREEN,URINE NEGATIVE (NEGATIVE)
[2018-11-25 15:20] LABS: PHENCYCLIDINE SCREEN,URINE NEGATIVE (NEGATIVE)
[2018-11-25 17:05] VITALS: BP 143/102
[2018-11-25 17:30] VITALS: BP 143/101
[2018-11-25] MEDS ORDERED: ACETAMINOPHEN 325 MG TABLET PO PRN (18:00)
[2018-11-25] MEDS ORDERED: PETROLATUM,WHITE 71 GM JELLY TP PRN (18:00)
[2018-11-25] MEDS ORDERED: IBUPROFEN 600 MG TABLET PO PRN (18:00)
[2018-11-25] MEDS ORDERED: BACITRACIN 28.4 GM OINTMENT TP PRN (18:00)
[2018-11-25] MEDS ORDERED: ONDANSETRON HCL 4 MG TABLET PO PRN (18:00)
[2018-11-25] MEDS ORDERED: CloNIDine HCL 0.1 MG TABLET PO PRN (18:00)
[2018-11-25] MEDS ORDERED: LOPERAMIDE HCL 2 MG CAPSULE PO PRN (18:00)
[2018-11-25] MEDS ORDERED: MAGNESIUM HYDROXIDE SUSPENSION 30 ML UDCUP PO PRN (18:00)
[2018-11-25] MEDS ORDERED: ALBUTEROL SULFATE HFA 90 MCG/PUFF 8 GM INHALER IH PRN (18:00)
[2018-11-25] MEDS ORDERED: BENZOCAINE/MENTHOL LOZENGE MM PRN (18:00)
[2018-11-25] MEDS ORDERED: MAG HYDROX/AL HYDROX/SIMETH ES 30 ML SUSPENSION UDCUP PO PRN (18:00)
[2018-11-26 08:00] VITALS: BP 131/74
[2018-11-26] MEDS ORDERED: DOCUSATE SODIUM 100 MG CAPSULE PO PRN (08:45)
[2018-11-26] MEDS: OMEPRAZOLE 20 MG CAPSULE PO SCH ×2 (08:55→08:56)
[2018-11-26] MEDS: LORazepam 2 MG TABLET PO PRN ×2 (08:59→15:00)
[2018-11-26 17:05] VITALS: BP 133/84
[2018-11-26] MEDS: SERTRALINE HCL 100 MG TABLET PO SCH ×2 (17:34→22:13)
[2018-11-26] MEDS: QUEtiapine FUMARATE 200 MG TABLET PO SCH ×2 (17:34→22:14)
[2018-11-26] MEDS ORDERED: QUEtiapine FUMARATE 100 MG TABLET PO PRN (19:15)
[2018-11-26] MEDS: DiphenhydrAMINE HCL 25 MG CAPSULE PO SCH (21:29)
[2018-11-27 03:23] VITALS: BP 146/83
[2018-11-27 08:05] VITALS: BP 136/92
[2018-11-27] MEDS: OMEPRAZOLE 20 MG CAPSULE PO SCH (09:00)
[2018-11-27] MEDS: QUEtiapine FUMARATE 200 MG TABLET PO SCH ×2 (09:07→20:14)
[2018-11-27] MEDS: SERTRALINE HCL 100 MG TABLET PO SCH ×2 (09:07→20:13)
[2018-11-27 17:52] VITALS: BP 117/81
[2018-11-27] MEDS: DiphenhydrAMINE HCL 25 MG CAPSULE PO SCH (20:13)
[2018-11-28] MEDS: SERTRALINE HCL 100 MG TABLET PO SCH (08:49)
[2018-11-28] MEDS: QUEtiapine FUMARATE 200 MG TABLET PO SCH (08:49)
[2018-11-28] MEDS: OMEPRAZOLE 20 MG CAPSULE PO SCH (09:00)
[2018-11-28 09:05] VITALS: BP 136/77
[2018-11-28] MEDS ORDERED: DIPH50 PO (16:38)
== END 2018-11-28 17:30 | disposition home or self-care (01) | DRG 750 ==
LOC: EMS 13:01 → 3EI 16:36 → EMS 17:01
DX: F25.1 Schizoaffective disorder, depressive type (principal); Z68.41 Body mass index [BMI] 40.0-44.9, adult; R45.851 Suicidal ideations; E55.9 Vitamin D deficiency, unspecified; F41.9 Anxiety disorder, unspecified; E66.9 Obesity, unspecified; G47.00 Insomnia, unspecified; I10 Essential (primary) hypertension; K21.9 Gastro-esophageal reflux disease without esophagitis; M54.5 Low back pain; K59.00 Constipation, unspecified; Z79.899 Other long term (current) drug therapy; Z81.8 Family history of other mental and behavioral disorders; Z88.8 Allergy status to other drugs, medicaments and biological substances; Z91.5 Personal history of self-harm; Z98.51 Tubal ligation status
CPT/HCPCS: G0480

== ENCOUNTER 2019-03-25 12:58 | Inpatient (IN) | payer MEDICAID, OTHER ==
[~2019-03-25] VITALS: Ht 160 cm; Wt 104.9 kg
[~2019-03-25 12:58] MED LIST changes: -ATEN50TA PO; +DIPH50 PO; -DSS100 PO; -OMEP20 PO; -VITAD1000 PO
[2019-03-25 13:40] LABS: BASOPHILS % (AUTO) 0.7 % (0.0-2.0); EOSINOPHILS % (AUTO) 0.3 % (1.0-6.0); HEMATOCRIT 31.8 % (36-46); HEMOGLOBIN 10.4 g/dL (12.0-16.0); LYMPHOCYTES # (AUTO) 1.5 K/uL (1.0-4.8); LYMPHOCYTES % (AUTO) 27.2 % (22.0-44.0); MEAN CORPUSCULAR HGB CONC 32.7 G/dL (31.0-37.0); MEAN CORPUSCULAR VOLUME 89 fL (80-100); MONOCYTES # (AUTO) 0.4 K/uL (0.1-1.0); MONOCYTES % (AUTO) 7.2 % (2.0-9.0); NEUTROPHILS # (AUTO) 3.5 K/uL (1.8-7.7); NEUTROPHILS % (AUTO) 64.6 % (40.0-70.0); PLATELET COUNT (AUTO) 350 K/uL (150-450); RED BLOOD CELL COUNT(AUTO) 3.59 MIL/uL (4.00-5.20)
[2019-03-25 13:47] LABS: APPEARANCE,URINE CLEAR (CLEAR); BILIRUBIN,URINE NEGATIVE (NEGATIVE); GLUCOSE, URINE (UA) NEGATIVE (NEGATIVE); KETONES,URINE NEGATIVE (NEGATIVE); LEUKOCYTE ESTERASE ,URINE NEGATIVE (NEGATIVE); NITRATE,URINE NEGATIVE (NEGATIVE); OCCULT BLOOD,URINE TRACE (NEGATIVE); PH,URINE 5.5 (5.0-8.0); PROTEIN,URINE NEGATIVE (NEGATIVE); UROBILINOGEN,URINE 0.2 mg/dL (<=1.0)
[2019-03-25 13:52] LABS: AMPHET/METH SCREEN,URINE NEGATIVE (NEGATIVE); BARBITURATE SCREEN, URINE NEGATIVE (NEGATIVE); BENZODIAZEPINES SCREEN,URINE NEGATIVE (NEGATIVE); CANNABINOID SCREEN,URINE NEGATIVE (NEGATIVE); COCAINE SCREEN,URINE NEGATIVE (NEGATIVE); METHADONE SCREEN, URINE NEGATIVE (NEGATIVE); OPIATE SCREEN,URINE NEGATIVE (NEGATIVE)
[2019-03-25 13:54] LABS: PHENCYCLIDINE SCREEN,URINE NEGATIVE (NEGATIVE)
[2019-03-25 13:57] LABS: BACTERIA,URINE None Seen /HPF (None Seen); RBC,URINE 0-2 /HPF (0-2); WBC,URINE None Seen /HPF (0-5)
[2019-03-25 13:58] LABS: SQUAMOUS EPITHELIAL CELL,UR Moderate /LPF (None Seen)
[2019-03-25 13:59] LABS: ANION GAP 10 mmol/L (8-16); CALCIUM, TOTAL 9.2 mg/dL (8.8-10.5); CARBON DIOXIDE 25 mmol/L (22-29); CHLORIDE 106 mmol/L (98-107); CREATININE 0.88 mg/dL (0.60-1.30); GLOMERULAR FILTR. RATE CALC > 60 mL/min (>60); GLUCOSE,RANDOM 100 mg/dL (70-110); POTASSIUM 4.1 mmol/L (3.5-5.1); SODIUM SERUM 141 mmol/L (136-145); UREA NITROGEN, BLOOD 11 mg/dL (7-18)
[2019-03-25 14:04] LABS: ALANINE AMINOTRANSFERASE 42 U/L (12-78); ALBUMIN 4.1 g/dL (3.4-5.0); ALKALINE PHOSPHATASE 79 U/L (46-116); ASPARTATE AMINOTRANSFERASE 26 U/L (15-37); BILIRUBIN,TOTAL 0.1 mg/dL (0.1-1.0); HCG,QUANTITATIVE 1 mIU/mL (0-6); TOTAL PROTEIN, SERUM 8.1 g/dL (6.4-8.2)
[2019-03-25] MEDS ORDERED: HALOPERIDOL 5 MG TABLET PO ONE (15:15)
[2019-03-25] MEDS ORDERED: LORazepam 2 MG TABLET PO ONE (15:15)
[2019-03-25] MEDS ORDERED: DiphenhydrAMINE HCL 50 MG CAPSULE PO ONE (15:15)
[2019-03-25] MEDS ORDERED: ACETAMINOPHEN 325 MG TABLET PO PRN ×2 (16:00→20:45)
[2019-03-25] MEDS ORDERED: ZOLPIDEM TARTRATE 10 MG TABLET PO PRN (16:00)
[2019-03-25] MEDS ORDERED: IBUPROFEN 400 MG TABLET PO PRN ×2 (16:00→20:45)
[2019-03-25] MEDS ORDERED: HALOPERIDOL 5 MG TABLET PO PRN (16:00)
[2019-03-25 20:25] VITALS: BP 143/79
[2019-03-25] MEDS ORDERED: ALBUTEROL SULFATE HFA 90 MCG/PUFF 8 GM INHALER IH PRN (20:45)
[2019-03-25] MEDS ORDERED: CloNIDine HCL 0.1 MG TABLET PO PRN (20:45)
[2019-03-25] MEDS ORDERED: ONDANSETRON HCL 4 MG TABLET PO PRN (20:45)
[2019-03-25] MEDS ORDERED: MAGNESIUM HYDROXIDE SUSPENSION 30 ML UDCUP PO PRN (20:45)
[2019-03-25] MEDS ORDERED: MAG HYDROX/AL HYDROX/SIMETH ES 30 ML SUSPENSION UDCUP PO PRN (20:45)
[2019-03-25] MEDS ORDERED: GuaiFENesin/D-METHORPHAN [SUGAR-FREE] 200-20MG/10 ML SYRUP UDCUP PO PRN (20:45)
[2019-03-25] MEDS ORDERED: DOCUSATE SODIUM 100 MG CAPSULE PO PRN (20:45)
[2019-03-25] MEDS ORDERED: NICOTINE 14 MG/24 HOUR PATCH TD PRN (20:45)
[2019-03-25] MEDS ORDERED: PETROLATUM,WHITE 28 GM JELLY TP PRN (20:45)
[2019-03-25] MEDS ORDERED: LOPERAMIDE HCL 2 MG CAPSULE PO PRN (20:45)
[2019-03-26] MEDS: LORazepam 2 MG TABLET PO PRN (05:21)
[2019-03-26 05:37] VITALS: BP 131/82
[2019-03-26] MEDS ORDERED: BENZOCAINE/MENTHOL LOZENGE PO PRN (06:45)
[2019-03-26 08:15] VITALS: BP 131/84
[2019-03-26 08:42] LABS: BASOPHILS % (AUTO) 0.5 % (0.0-2.0); EOSINOPHILS % (AUTO) 1.1 % (1.0-6.0); HEMATOCRIT 31.9 % (36-46); HEMOGLOBIN 10.5 g/dL (12.0-16.0); LYMPHOCYTES # (AUTO) 1.8 K/uL (1.0-4.8); LYMPHOCYTES % (AUTO) 34.3 % (22.0-44.0); MEAN CORPUSCULAR HEMOGLOBIN 29.3 pg (26.0-34.0); MEAN CORPUSCULAR HGB CONC 32.9 G/dL (31.0-37.0); MEAN CORPUSCULAR VOLUME 89 fL (80-100); MONOCYTES # (AUTO) 0.4 K/uL (0.1-1.0); MONOCYTES % (AUTO) 8.3 % (2.0-9.0); NEUTROPHILS # (AUTO) 2.9 K/uL (1.8-7.7); NEUTROPHILS % (AUTO) 55.8 % (40.0-70.0); PLATELET COUNT (AUTO) 367 K/uL (150-450); RED BLOOD CELL COUNT(AUTO) 3.58 MIL/uL (4.00-5.20)
[2019-03-26] MEDS: AmLODIPine BESYLATE 5 MG TABLET PO SCH (08:46)
[2019-03-26 09:39] LABS: HEMOGLOBIN A1C 5.9 % (4.5-6.2)
[2019-03-26 09:53] LABS: ALANINE AMINOTRANSFERASE 35 U/L (12-78); ALBUMIN 3.8 g/dL (3.4-5.0); ALKALINE PHOSPHATASE 70 U/L (46-116); ANION GAP 11 mmol/L (8-16); ASPARTATE AMINOTRANSFERASE 27 U/L (15-37); BILIRUBIN,TOTAL 0.1 mg/dL (0.1-1.0); CALCIUM, TOTAL 8.9 mg/dL (8.8-10.5); CARBON DIOXIDE 25 mmol/L (22-29); CHLORIDE 104 mmol/L (98-107); CHOL/HDL RATIO 3.2 (3.9-5.7); CHOLESTEROL 177 mg/dL (131-200); CREATININE 0.89 mg/dL (0.60-1.30); GLOMERULAR FILTR. RATE CALC > 60 mL/min (>60); GLUCOSE,RANDOM 104 mg/dL (70-110); HDL CHOLESTEROL 56 mg/dL (40-60); LDL CHOL (CALC.) 105 mg/dL (0-130); SODIUM SERUM 140 mmol/L (136-145); THYROID STIMULATING HORMONE 3.92 uIU/mL (0.36-3.74); TOTAL PROTEIN, SERUM 7.6 g/dL (6.4-8.2); TRIGLYCERIDES 80 mg/dL (15-150); UREA NITROGEN, BLOOD 13 mg/dL (7-18)
[2019-03-26] MEDS: QUEtiapine FUMARATE 200 MG TABLET PO SCH ×2 (12:50→20:36)
[2019-03-26] MEDS: SERTRALINE HCL 100 MG TABLET PO SCH ×2 (12:50→20:36)
[2019-03-26 16:57] VITALS: BP 145/77
[2019-03-27 00:35] VITALS: BP 111/65
[2019-03-27] MEDS: LORazepam 2 MG TABLET PO PRN (05:35)
[2019-03-27 08:19] VITALS: BP 139/86
[2019-03-27] MEDS: QUEtiapine FUMARATE 200 MG TABLET PO SCH ×2 (08:48→20:19)
[2019-03-27] MEDS: SERTRALINE HCL 100 MG TABLET PO SCH ×2 (08:49→20:19)
[2019-03-27] MEDS: AmLODIPine BESYLATE 5 MG TABLET PO SCH (08:52)
[2019-03-27 16:21] VITALS: BP 128/75
[2019-03-28 04:33] VITALS: BP 136/93
[2019-03-28] MEDS: LEVOTHYROXINE SODIUM 50 MCG TABLET PO SCH ×2 (06:22→06:30)
[2019-03-28 08:10] VITALS: BP 147/75
[2019-03-28] MEDS: AmLODIPine BESYLATE 5 MG TABLET PO SCH (09:00)
[2019-03-28] MEDS: QUEtiapine FUMARATE 200 MG TABLET PO SCH (09:05)
[2019-03-28] MEDS: SERTRALINE HCL 100 MG TABLET PO SCH (09:05)
[2019-03-28] MEDS ORDERED: LEVO50TA11 PO (10:58)
== END 2019-03-28 13:30 | disposition home or self-care (01) | DRG 750 ==
LOC: EMS 13:00 → B3A 18:21
PROVIDERS: ADMIT Psychiatry & Neurology Psychiatry; ATTEND Psychiatry & Neurology Psychiatry
DX: F25.0 Schizoaffective disorder, bipolar type (principal); R45.851 Suicidal ideations; D64.9 Anemia, unspecified; E66.9 Obesity, unspecified; E78.5 Hyperlipidemia, unspecified; F41.9 Anxiety disorder, unspecified; I10 Essential (primary) hypertension; I25.10 Atherosclerotic heart disease of native coronary artery without angina pectoris; K21.9 Gastro-esophageal reflux disease without esophagitis; R73.03 Prediabetes; Z81.8 Family history of other mental and behavioral disorders; Z86.73 Personal history of transient ischemic attack (TIA), and cerebral infarction without residual deficits; Z88.8 Allergy status to other drugs, medicaments and biological substances
CPT/HCPCS: 83036; 84439; 84443; G0480

== ENCOUNTER 2019-04-12 11:47 | Inpatient (IN) | payer MEDICAID, OTHER ==
[~2019-04-12] VITALS: Ht 160 cm; Wt 103.0 kg
[~2019-04-12 11:47] MED LIST changes: -DIPH50 PO; +LEVO50TA11 PO
[2019-04-12] MEDS ORDERED: SERT100T12 PO (11:57)
[2019-04-12] MEDS ORDERED: LORA1TAB3 PO (11:57)
[2019-04-12 12:31] LABS: BASOPHILS % (AUTO) 0.8 % (0.0-2.0); EOSINOPHILS % (AUTO) 0.1 % (1.0-6.0); HEMATOCRIT 35.8 % (36-46); HEMOGLOBIN 11.4 g/dL (12.0-16.0); LYMPHOCYTES # (AUTO) 1.2 K/uL (1.0-4.8); LYMPHOCYTES % (AUTO) 15.8 % (22.0-44.0); MEAN CORPUSCULAR HEMOGLOBIN 28.1 pg (26.0-34.0); MEAN CORPUSCULAR HGB CONC 31.7 G/dL (31.0-37.0); MEAN CORPUSCULAR VOLUME 89 fL (80-100); MONOCYTES # (AUTO) 0.4 K/uL (0.1-1.0); MONOCYTES % (AUTO) 5.6 % (2.0-9.0); NEUTROPHILS % (AUTO) 77.7 % (40.0-70.0); PLATELET COUNT (AUTO) 351 K/uL (150-450); RED BLOOD CELL COUNT(AUTO) 4.05 MIL/uL (4.00-5.20); RED CELL DISTRIBUTION WIDTH 14.4 % (11.5-14.5)
[2019-04-12] MEDS ORDERED: LORazepam 1 MG TABLET PO ONE (12:45)
[2019-04-12] MEDS ORDERED: QUEtiapine FUMARATE 100 MG TABLET PO ONE (12:45)
[2019-04-12 12:57] LABS: ANION GAP 14 mmol/L (8-16); CALCIUM, TOTAL 9.6 mg/dL (8.8-10.5); CARBON DIOXIDE 24 mmol/L (22-29); CHLORIDE 102 mmol/L (98-107); CREATININE 0.87 mg/dL (0.60-1.30); GLOMERULAR FILTR. RATE CALC > 60 mL/min (>60); GLUCOSE,RANDOM 106 mg/dL (70-110); POTASSIUM 4.2 mmol/L (3.5-5.1); SODIUM SERUM 140 mmol/L (136-145); UREA NITROGEN, BLOOD 5 mg/dL (7-18)
[2019-04-12 13:06] LABS: ALANINE AMINOTRANSFERASE 36 U/L (12-78); ALBUMIN 4.3 g/dL (3.4-5.0); ALKALINE PHOSPHATASE 77 U/L (46-116); ASPARTATE AMINOTRANSFERASE 24 U/L (15-37); BILIRUBIN,TOTAL 0.2 mg/dL (0.1-1.0); TOTAL PROTEIN, SERUM 8.6 g/dL (6.4-8.2)
[2019-04-12 13:24] LABS: BILIRUBIN,URINE NEGATIVE (NEGATIVE); GLUCOSE, URINE (UA) NEGATIVE (NEGATIVE); KETONES,URINE NEGATIVE (NEGATIVE); LEUKOCYTE ESTERASE ,URINE NEGATIVE (NEGATIVE); NITRATE,URINE NEGATIVE (NEGATIVE); OCCULT BLOOD,URINE NEGATIVE (NEGATIVE); PROTEIN,URINE NEGATIVE (NEGATIVE); UROBILINOGEN,URINE 0.2 mg/dL (<=1.0)
[2019-04-12] MEDS ORDERED: HALOPERIDOL 5 MG TABLET PO PRN (13:30)
[2019-04-12 13:34] LABS: APPEARANCE,URINE CLEAR (CLEAR)
[2019-04-12 13:44] LABS: BACTERIA,URINE None Seen /HPF (None Seen); RBC,URINE None Seen /HPF (0-2); SQUAMOUS EPITHELIAL CELL,UR Many /LPF (None Seen); WBC,URINE None Seen /HPF (0-5)
[2019-04-12 14:13] LABS: AMPHET/METH SCREEN,URINE NEGATIVE (NEGATIVE); BARBITURATE SCREEN, URINE NEGATIVE (NEGATIVE); BENZODIAZEPINES SCREEN,URINE NEGATIVE (NEGATIVE); CANNABINOID SCREEN,URINE NEGATIVE (NEGATIVE); COCAINE SCREEN,URINE NEGATIVE (NEGATIVE); METHADONE SCREEN, URINE NEGATIVE (NEGATIVE); OPIATE SCREEN,URINE NEGATIVE (NEGATIVE); PHENCYCLIDINE SCREEN,URINE NEGATIVE (NEGATIVE)
[2019-04-12 18:46] VITALS: BP 137/78
[2019-04-12] MEDS ORDERED: PNEUMOCOCCAL VACCINE POLYVALENT 0.5 ML VIAL [PPSV23] IM ONE (20:15)
[2019-04-12] MEDS ORDERED: ONDANSETRON HCL 4 MG TABLET PO PRN (20:15)
[2019-04-12] MEDS ORDERED: IBUPROFEN 400 MG TABLET PO PRN (20:15)
[2019-04-12] MEDS ORDERED: MAG HYDROX/AL HYDROX/SIMETH ES 30 ML SUSPENSION UDCUP PO PRN (20:15)
[2019-04-12] MEDS ORDERED: LOPERAMIDE HCL 2 MG CAPSULE PO PRN (20:15)
[2019-04-12] MEDS ORDERED: GuaiFENesin/D-METHORPHAN [SUGAR-FREE] 200-20MG/10 ML SYRUP UDCUP PO PRN (20:15)
[2019-04-12] MEDS ORDERED: DOCUSATE SODIUM 100 MG CAPSULE PO PRN (20:15)
[2019-04-12] MEDS ORDERED: PETROLATUM,WHITE 28 GM JELLY TP PRN (20:15)
[2019-04-12] MEDS ORDERED: CloNIDine HCL 0.1 MG TABLET PO PRN (20:15)
[2019-04-12] MEDS ORDERED: MAGNESIUM HYDROXIDE SUSPENSION 30 ML UDCUP PO PRN (20:15)
[2019-04-12] MEDS ORDERED: ACETAMINOPHEN 325 MG TABLET PO PRN (20:15)
[2019-04-12] MEDS ORDERED: ALBUTEROL SULFATE HFA 90 MCG/PUFF 8 GM INHALER IH PRN (20:15)
[2019-04-12] MEDS: QUEtiapine FUMARATE 200 MG TABLET PO SCH (20:19)
[2019-04-12] MEDS: SERTRALINE HCL 100 MG TABLET PO SCH (20:19)
[2019-04-12] MEDS: ZOLPIDEM TARTRATE 10 MG TABLET PO PRN (21:15)
[2019-04-13 05:20] VITALS: BP 130/79
[2019-04-13] MEDS: LEVOTHYROXINE SODIUM 50 MCG TABLET PO SCH (06:27)
[2019-04-13 07:48] LABS: HEMOGLOBIN A1C 5.9 % (4.5-6.2)
[2019-04-13 08:04] LABS: THYROID STIMULATING HORMONE 2.38 uIU/mL (0.36-3.74)
[2019-04-13] MEDS: SERTRALINE HCL 100 MG TABLET PO SCH ×2 (08:53→22:14)
[2019-04-13] MEDS: QUEtiapine FUMARATE 200 MG TABLET PO SCH ×2 (08:53→20:21)
[2019-04-13] MEDS: LORazepam 2 MG TABLET PO PRN (09:00)
[2019-04-13 16:25] VITALS: BP 130/74
[2019-04-14 02:22] VITALS: BP 128/79
[2019-04-14] MEDS: ZOLPIDEM TARTRATE 10 MG TABLET PO PRN (02:23)
[2019-04-14] MEDS: LEVOTHYROXINE SODIUM 50 MCG TABLET PO SCH (06:30)
[2019-04-14] MEDS: SERTRALINE HCL 100 MG TABLET PO SCH ×2 (08:18→20:00)
[2019-04-14] MEDS: QUEtiapine FUMARATE 200 MG TABLET PO SCH ×2 (08:18→20:00)
[2019-04-14] MEDS: LORazepam 2 MG TABLET PO PRN ×2 (08:28→18:21)
[2019-04-14 09:25] VITALS: BP 100/67
[2019-04-14 16:25] VITALS: BP 128/74
[2019-04-15 03:00] VITALS: BP 123/77
[2019-04-15] MEDS: LEVOTHYROXINE SODIUM 50 MCG TABLET PO SCH (06:30)
[2019-04-15 08:21] VITALS: BP 134/84
[2019-04-15] MEDS: QUEtiapine FUMARATE 200 MG TABLET PO SCH ×2 (08:30→21:19)
[2019-04-15] MEDS: SERTRALINE HCL 100 MG TABLET PO SCH ×2 (08:30→21:19)
[2019-04-15 16:21] VITALS: BP 132/65
[2019-04-15] MEDS: LORazepam 2 MG TABLET PO PRN (19:34)
[2019-04-16 02:18] VITALS: BP 138/79
[2019-04-16] MEDS: ZOLPIDEM TARTRATE 10 MG TABLET PO PRN ×2 (02:35→20:51)
[2019-04-16] MEDS: LORazepam 2 MG TABLET PO PRN ×2 (06:18→13:03)
[2019-04-16] MEDS: LEVOTHYROXINE SODIUM 50 MCG TABLET PO SCH (06:30)
[2019-04-16] MEDS: SERTRALINE HCL 100 MG TABLET PO SCH ×2 (08:28→20:51)
[2019-04-16] MEDS: QUEtiapine FUMARATE 200 MG TABLET PO SCH ×2 (08:28→20:51)
[2019-04-16 08:51] VITALS: BP 136/71
[2019-04-16 16:30] VITALS: BP 131/76
[2019-04-17 06:09] VITALS: BP 133/77
[2019-04-17] MEDS: LEVOTHYROXINE SODIUM 50 MCG TABLET PO SCH (06:30)
[2019-04-17] MEDS: QUEtiapine FUMARATE 200 MG TABLET PO SCH (08:29)
[2019-04-17] MEDS: SERTRALINE HCL 100 MG TABLET PO SCH (08:30)
[2019-04-17 08:36] VITALS: BP 160/93
[2019-04-17] MEDS: LORazepam 2 MG TABLET PO PRN (09:25)
[2019-04-17 10:29] VITALS: BP 132/92
== END 2019-04-17 12:05 | disposition home or self-care (01) | DRG 750 ==
LOC: EMS 11:47 → B3A 17:05
PROVIDERS: ADMIT Psychiatry & Neurology Psychiatry; ATTEND Psychiatry & Neurology Psychiatry
DX: F25.1 Schizoaffective disorder, depressive type (principal); R45.851 Suicidal ideations; D64.9 Anemia, unspecified; E03.9 Hypothyroidism, unspecified; E66.9 Obesity, unspecified; E78.5 Hyperlipidemia, unspecified; F10.10 Alcohol abuse, uncomplicated; I10 Essential (primary) hypertension; K21.9 Gastro-esophageal reflux disease without esophagitis; F19.10 Other psychoactive substance abuse, uncomplicated; M54.5 Low back pain; Z81.8 Family history of other mental and behavioral disorders; Z86.73 Personal history of transient ischemic attack (TIA), and cerebral infarction without residual deficits; Z88.8 Allergy status to other drugs, medicaments and biological substances; Z71.51 Drug abuse counseling and surveillance of drug abuser; Z71.41 Alcohol abuse counseling and surveillance of alcoholic
CPT/HCPCS: 83036; 84443; 87081; G0480

== ENCOUNTER 2019-04-30 08:16 | Inpatient (IN) | payer MEDICAID, OTHER ==
[~2019-04-30] VITALS: Ht 167.6 cm; Wt 99.3 kg
[2019-04-30] MEDS ORDERED: DIPH50 PO (08:25)
[2019-04-30] MEDS ORDERED: ZOLPIDEM TARTRATE 10 MG TABLET PO PRN (11:15)
[2019-04-30] MEDS ORDERED: HALOPERIDOL 5 MG TABLET PO PRN (11:15)
[2019-04-30 14:36] VITALS: BP 144/76
[2019-04-30] MEDS ORDERED: ONDANSETRON HCL 4 MG TABLET PO PRN (15:15)
[2019-04-30] MEDS ORDERED: MAG HYDROX/AL HYDROX/SIMETH ES 30 ML SUSPENSION UDCUP PO PRN (15:15)
[2019-04-30] MEDS ORDERED: LOPERAMIDE HCL 2 MG CAPSULE PO PRN (15:15)
[2019-04-30] MEDS ORDERED: CloNIDine HCL 0.1 MG TABLET PO PRN (15:15)
[2019-04-30] MEDS ORDERED: MAGNESIUM HYDROXIDE SUSPENSION 30 ML UDCUP PO PRN (15:15)
[2019-04-30] MEDS ORDERED: DOCUSATE SODIUM 100 MG CAPSULE PO PRN (15:15)
[2019-04-30] MEDS ORDERED: GuaiFENesin/D-METHORPHAN [SUGAR-FREE] 200-20MG/10 ML SYRUP UDCUP PO PRN (15:15)
[2019-04-30] MEDS ORDERED: ALBUTEROL SULFATE HFA 90 MCG/PUFF 8 GM INHALER IH PRN (15:15)
[2019-04-30] MEDS ORDERED: PETROLATUM,WHITE 28 GM JELLY TP PRN (15:15)
[2019-04-30] MEDS ORDERED: IBUPROFEN 400 MG TABLET PO PRN (15:15)
[2019-04-30] MEDS ORDERED: ACETAMINOPHEN 325 MG TABLET PO PRN (15:15)
[2019-04-30] MEDS ORDERED: NICOTINE 14 MG/24 HOUR PATCH TD PRN (15:15)
[2019-04-30] MEDS ORDERED: LORazepam 2 MG/ML VIAL ONE (15:17)
[2019-04-30] MEDS ORDERED: HALOPERIDOL LACTATE 5 MG/ML VIAL ONE (15:18)
[2019-04-30] MEDS ORDERED: DiphenhydrAMINE HCL 50 MG/ML VIAL ONE (15:18)
[2019-04-30] MEDS ORDERED: LORazepam 2 MG/ML VIAL IM ONE (15:30)
[2019-04-30] MEDS ORDERED: HALOPERIDOL LACTATE 5 MG/ML VIAL IM ONE (15:30)
[2019-04-30] MEDS ORDERED: DiphenhydrAMINE HCL 50 MG/ML VIAL IM ONE (15:30)
[2019-04-30 18:28] VITALS: BP 140/86
[2019-04-30] MEDS: SERTRALINE HCL 100 MG TABLET PO SCH (21:35)
[2019-04-30] MEDS: QUEtiapine FUMARATE 200 MG TABLET PO SCH (21:36)
[2019-05-01] MEDS: QUEtiapine FUMARATE 200 MG TABLET PO SCH ×2 (09:33→21:00)
[2019-05-01] MEDS: SERTRALINE HCL 100 MG TABLET PO SCH ×2 (09:33→21:00)
[2019-05-01] MEDS: GABAPENTIN 100 MG CAPSULE PO SCH ×2 (11:45→16:06)
[2019-05-02 05:55] VITALS: BP 136/82
[2019-05-02] MEDS: LORazepam 2 MG TABLET PO PRN (05:59)
[2019-05-02 08:12] VITALS: BP 127/62
[2019-05-02] MEDS: QUEtiapine FUMARATE 200 MG TABLET PO SCH ×2 (08:58→20:27)
[2019-05-02] MEDS: SERTRALINE HCL 100 MG TABLET PO SCH ×2 (08:58→20:27)
[2019-05-02] MEDS: GABAPENTIN 100 MG CAPSULE PO SCH ×2 (09:00→17:00)
[2019-05-03] MEDS: GABAPENTIN 100 MG CAPSULE PO SCH ×2 (09:00→17:00)
[2019-05-03] MEDS: SERTRALINE HCL 100 MG TABLET PO SCH ×2 (09:05→20:28)
[2019-05-03] MEDS: QUEtiapine FUMARATE 200 MG TABLET PO SCH ×2 (09:05→20:34)
[2019-05-03 16:13] VITALS: BP 135/69
[2019-05-04 04:56] VITALS: BP 132/62
[2019-05-04] MEDS: SERTRALINE HCL 100 MG TABLET PO SCH ×2 (08:27→21:02)
[2019-05-04] MEDS: QUEtiapine FUMARATE 200 MG TABLET PO SCH ×2 (08:27→21:02)
[2019-05-04] MEDS: GABAPENTIN 100 MG CAPSULE PO SCH ×2 (08:28→16:47)
[2019-05-05 03:05] VITALS: BP 139/71
[2019-05-05 08:24] VITALS: BP 116/111
[2019-05-05] MEDS: GABAPENTIN 100 MG CAPSULE PO SCH ×2 (09:00→16:16)
[2019-05-05 09:17] VITALS: BP 166/111
[2019-05-05] MEDS: SERTRALINE HCL 100 MG TABLET PO SCH ×3 (09:24→22:59)
[2019-05-05] MEDS: QUEtiapine FUMARATE 200 MG TABLET PO SCH ×3 (09:24→22:59)
[2019-05-05] MEDS ORDERED: HALOPERIDOL LACTATE 5 MG/ML VIAL ONE (15:07)
[2019-05-05] MEDS ORDERED: DiphenhydrAMINE HCL 50 MG/ML VIAL ONE (15:08)
[2019-05-05] MEDS ORDERED: HALOPERIDOL LACTATE 5 MG/ML VIAL IM ONE (15:15)
[2019-05-05] MEDS ORDERED: DiphenhydrAMINE HCL 50 MG/ML VIAL IM ONE (15:15)
[2019-05-05] MEDS ORDERED: LORazepam 2 MG/ML VIAL IM ONE (15:15)
[2019-05-06] MEDS: QUEtiapine FUMARATE 200 MG TABLET PO SCH ×2 (08:21→20:09)
[2019-05-06] MEDS: SERTRALINE HCL 100 MG TABLET PO SCH ×2 (08:21→20:16)
[2019-05-06] MEDS: GABAPENTIN 100 MG CAPSULE PO SCH (08:24)
[2019-05-06] MEDS: LORazepam 2 MG TABLET PO PRN (19:16)
[2019-05-07] MEDS: QUEtiapine FUMARATE 200 MG TABLET PO SCH ×2 (08:13→20:06)
[2019-05-07] MEDS: SERTRALINE HCL 100 MG TABLET PO SCH ×2 (08:13→20:05)
[2019-05-07] MEDS: LORazepam 2 MG TABLET PO PRN (10:00)
[2019-05-08] MEDS: SERTRALINE HCL 100 MG TABLET PO SCH ×2 (08:39→20:30)
[2019-05-08] MEDS: QUEtiapine FUMARATE 200 MG TABLET PO SCH ×2 (08:39→20:30)
[2019-05-09] MEDS: QUEtiapine FUMARATE 200 MG TABLET PO SCH ×2 (08:01→21:09)
[2019-05-09] MEDS: SERTRALINE HCL 100 MG TABLET PO SCH ×2 (08:01→21:10)
[2019-05-09] MEDS: LORazepam 2 MG TABLET PO PRN ×2 (15:59→21:36)
[2019-05-10] MEDS: SERTRALINE HCL 100 MG TABLET PO SCH ×2 (08:28→20:52)
[2019-05-10] MEDS: QUEtiapine FUMARATE 200 MG TABLET PO SCH ×2 (08:28→20:52)
[2019-05-10] MEDS: ARIPiprazole 15 MG TABLET PO SCH (11:15)
[2019-05-10] MEDS: LORazepam 2 MG TABLET PO PRN (16:13)
[2019-05-11] MEDS: LORazepam 2 MG TABLET PO PRN (00:11)
[2019-05-11] MEDS: ARIPiprazole 15 MG TABLET PO SCH (08:24)
[2019-05-11] MEDS: QUEtiapine FUMARATE 200 MG TABLET PO SCH (08:24)
[2019-05-11] MEDS: SERTRALINE HCL 100 MG TABLET PO SCH (08:25)
[2019-05-11] MEDS ORDERED: ARIP15TA2 PO (11:12)
== END 2019-05-11 13:20 | disposition home or self-care (01) | DRG 750 ==
LOC: EMS 08:19 → B3A 13:32 → B2X 05-09 09:21
PROVIDERS: ATTEND Psychiatry & Neurology Psychiatry
DX: F25.1 Schizoaffective disorder, depressive type (principal); R45.851 Suicidal ideations; D64.9 Anemia, unspecified; E03.9 Hypothyroidism, unspecified; E66.9 Obesity, unspecified; E78.5 Hyperlipidemia, unspecified; I10 Essential (primary) hypertension; K21.9 Gastro-esophageal reflux disease without esophagitis; F41.9 Anxiety disorder, unspecified; Z88.8 Allergy status to other drugs, medicaments and biological substances; Z68.35 Body mass index [BMI] 35.0-35.9, adult; Z98.51 Tubal ligation status; Z79.899 Other long term (current) drug therapy
CPT/HCPCS: 87081; J1200; J1630; J2060

== ENCOUNTER 2019-06-28 12:40 | Inpatient (IN) | payer MEDICAID ==
[~2019-06-28] VITALS: Ht 160 cm; Wt 101.6 kg
[~2019-06-28 12:40] MED LIST changes: +ARIP15TA2 PO; -LEVO50TA11 PO
[2019-06-28] MEDS ORDERED: DIPH25 PO (12:45)
[2019-06-28] MEDS ORDERED: ZOLPIDEM TARTRATE 10 MG TABLET PO PRN (15:15)
[2019-06-28] MEDS ORDERED: HALOPERIDOL 5 MG TABLET PO PRN (15:15)
[2019-06-28 15:56] LABS: APPEARANCE,URINE CLOUDY (CLEAR); BILIRUBIN,URINE NEGATIVE (NEGATIVE); GLUCOSE, URINE (UA) NEGATIVE (NEGATIVE); KETONES,URINE NEGATIVE (NEGATIVE); LEUKOCYTE ESTERASE ,URINE SMALL (NEGATIVE); NITRATE,URINE NEGATIVE (NEGATIVE); OCCULT BLOOD,URINE NEGATIVE (NEGATIVE); PH,URINE 5.5 (5.0-8.0); PROTEIN,URINE NEGATIVE (NEGATIVE); UROBILINOGEN,URINE 0.2 mg/dL (<=1.0)
[2019-06-28 15:57] LABS: AMPHET/METH SCREEN,URINE NEGATIVE (NEGATIVE); BARBITURATE SCREEN, URINE NEGATIVE (NEGATIVE); BENZODIAZEPINES SCREEN,URINE NEGATIVE (NEGATIVE); CANNABINOID SCREEN,URINE NEGATIVE (NEGATIVE); COCAINE SCREEN,URINE NEGATIVE (NEGATIVE); METHADONE SCREEN, URINE NEGATIVE (NEGATIVE); OPIATE SCREEN,URINE NEGATIVE (NEGATIVE)
[2019-06-28 16:01] LABS: PHENCYCLIDINE SCREEN,URINE NEGATIVE (NEGATIVE)
[2019-06-28 16:11] LABS: BACTERIA,URINE Moderate /HPF (None Seen); RBC,URINE 0-2 /HPF (0-2)
[2019-06-28 16:12] LABS: SQUAMOUS EPITHELIAL CELL,UR Moderate /LPF (None Seen)
[2019-06-28] MEDS: LORazepam 2 MG TABLET PO PRN (16:23)
[2019-06-28 18:49] VITALS: BP 135/87
[2019-06-28] MEDS ORDERED: LOPERAMIDE HCL 2 MG CAPSULE PO PRN (19:15)
[2019-06-28] MEDS ORDERED: IBUPROFEN 400 MG TABLET PO PRN (19:15)
[2019-06-28] MEDS ORDERED: PETROLATUM,WHITE 28 GM JELLY TP PRN (19:15)
[2019-06-28] MEDS ORDERED: GuaiFENesin/D-METHORPHAN [SUGAR-FREE] 200-20MG/10 ML SYRUP UDCUP PO PRN (19:15)
[2019-06-28] MEDS ORDERED: DOCUSATE SODIUM 100 MG CAPSULE PO PRN (19:15)
[2019-06-28] MEDS ORDERED: ACETAMINOPHEN 325 MG TABLET PO PRN (19:15)
[2019-06-28] MEDS ORDERED: MAG HYDROX/AL HYDROX/SIMETH ES 30 ML SUSPENSION UDCUP PO PRN (19:15)
[2019-06-28] MEDS ORDERED: ONDANSETRON HCL 4 MG TABLET PO PRN (19:15)
[2019-06-28] MEDS ORDERED: NICOTINE 14 MG/24 HOUR PATCH TD PRN (19:15)
[2019-06-28] MEDS ORDERED: CloNIDine HCL 0.1 MG TABLET PO PRN (19:15)
[2019-06-28] MEDS ORDERED: MAGNESIUM HYDROXIDE SUSPENSION 30 ML UDCUP PO PRN (19:15)
[2019-06-28] MEDS ORDERED: ALBUTEROL SULFATE HFA 90 MCG/PUFF 8 GM INHALER IH PRN (19:15)
[2019-06-29] MEDS ORDERED: PNEUMOCOCCAL VACCINE POLYVALENT 0.5 ML VIAL [PPSV23] IM ONE (03:15)
[2019-06-29 03:42] VITALS: BP 114/75
[2019-06-29 08:57] VITALS: BP 132/91
[2019-06-29] MEDS: LORazepam 2 MG TABLET PO PRN (09:04)
[2019-06-29 16:17] VITALS: BP 148/77
[2019-06-29] MEDS: DiphenhydrAMINE HCL 25 MG CAPSULE PO SCH (17:09)
[2019-06-29] MEDS: SERTRALINE HCL 100 MG TABLET PO SCH (20:11)
[2019-06-29] MEDS: QUEtiapine FUMARATE 200 MG TABLET PO SCH (20:11)
[2019-06-30 00:15] VITALS: BP 123/80
[2019-06-30] MEDS: QUEtiapine FUMARATE 200 MG TABLET PO SCH ×2 (08:47→21:03)
[2019-06-30] MEDS: SERTRALINE HCL 100 MG TABLET PO SCH ×2 (08:47→21:03)
[2019-06-30] MEDS: DiphenhydrAMINE HCL 25 MG CAPSULE PO SCH ×2 (08:47→17:31)
[2019-06-30] MEDS: CEPHALEXIN MONOHYDRATE 500 MG CAPSULE PO SCH ×2 (13:00→16:05)
[2019-06-30] MEDS: LORazepam 1 MG TABLET PO PRN (13:02)
[2019-07-01 04:33] VITALS: BP 135/78
[2019-07-01] MEDS: SERTRALINE HCL 100 MG TABLET PO SCH ×2 (08:53→20:14)
[2019-07-01] MEDS: CEPHALEXIN MONOHYDRATE 500 MG CAPSULE PO SCH ×3 (08:53→17:18)
[2019-07-01] MEDS: QUEtiapine FUMARATE 200 MG TABLET PO SCH ×2 (08:53→20:14)
[2019-07-01] MEDS: DiphenhydrAMINE HCL 25 MG CAPSULE PO SCH (08:53)
[2019-07-01] MEDS: LORazepam 1 MG TABLET PO PRN (18:06)
[2019-07-01] MEDS: DiphenhydrAMINE HCL 50 MG CAPSULE PO SCH (20:14)
[2019-07-02 06:15] VITALS: BP 147/90
[2019-07-02] MEDS: DiphenhydrAMINE HCL 50 MG CAPSULE PO SCH (08:28)
[2019-07-02] MEDS: SERTRALINE HCL 100 MG TABLET PO SCH (08:29)
[2019-07-02] MEDS: QUEtiapine FUMARATE 200 MG TABLET PO SCH (08:29)
[2019-07-02] MEDS: CEPHALEXIN MONOHYDRATE 500 MG CAPSULE PO SCH ×2 (08:36→13:00)
[2019-07-02] MEDS ORDERED: QUET200T PO (09:09)
[2019-07-02] MEDS ORDERED: DIPH25 PO (09:09)
[2019-07-02] MEDS ORDERED: SERT100T12 PO (09:09)
[2019-07-02] MEDS ORDERED: CEPH500 PO (09:09)
== END 2019-07-02 13:56 | disposition home or self-care (01) | DRG 750 ==
LOC: EMS 12:45 → B3A 16:39
PROVIDERS: ADMIT Psychiatry & Neurology Psychiatry; ATTEND Psychiatry & Neurology Psychiatry
DX: F25.0 Schizoaffective disorder, bipolar type (principal); E11.9 Type 2 diabetes mellitus without complications; R45.851 Suicidal ideations; E78.5 Hyperlipidemia, unspecified; F10.10 Alcohol abuse, uncomplicated; I10 Essential (primary) hypertension; K21.9 Gastro-esophageal reflux disease without esophagitis; N39.0 Urinary tract infection, site not specified; F19.10 Other psychoactive substance abuse, uncomplicated; R00.0 Tachycardia, unspecified; F32.9 Major depressive disorder, single episode, unspecified; F41.9 Anxiety disorder, unspecified; Z79.899 Other long term (current) drug therapy; Z81.8 Family history of other mental and behavioral disorders; Z86.73 Personal history of transient ischemic attack (TIA), and cerebral infarction without residual deficits; Z71.41 Alcohol abuse counseling and surveillance of alcoholic; Z71.51 Drug abuse counseling and surveillance of drug abuser; Z88.8 Allergy status to other drugs, medicaments and biological substances; Z98.51 Tubal ligation status
CPT/HCPCS: 87086

== ENCOUNTER 2019-07-26 12:28 | Inpatient (IN) | payer MEDICAID ==
[~2019-07-26] VITALS: Ht 160 cm; Wt 102.0 kg
[~2019-07-26 12:28] MED LIST changes: -ARIP15TA2 PO; +CEPH500 PO; +DIPH25 PO
[2019-07-26] MEDS ORDERED: HALOPERIDOL 5 MG TABLET PO PRN (13:45)
[2019-07-26] MEDS ORDERED: LORazepam 2 MG TABLET PO PRN (13:45)
[2019-07-26] MEDS ORDERED: ZOLPIDEM TARTRATE 10 MG TABLET PO PRN (13:45)
[2019-07-26 15:42] LABS: AMPHET/METH SCREEN,URINE NEGATIVE (NEGATIVE); BARBITURATE SCREEN, URINE NEGATIVE (NEGATIVE); BENZODIAZEPINES SCREEN,URINE POSITIVE (NEGATIVE); CANNABINOID SCREEN,URINE NEGATIVE (NEGATIVE); COCAINE SCREEN,URINE NEGATIVE (NEGATIVE); METHADONE SCREEN, URINE NEGATIVE (NEGATIVE); OPIATE SCREEN,URINE NEGATIVE (NEGATIVE)
[2019-07-26 15:43] LABS: PHENCYCLIDINE SCREEN,URINE NEGATIVE (NEGATIVE)
[2019-07-26 16:48] VITALS: BP 131/70
[2019-07-26] MEDS ORDERED: NICOTINE 14 MG/24 HOUR PATCH TD PRN (17:00)
[2019-07-26] MEDS ORDERED: MAGNESIUM HYDROXIDE SUSPENSION 30 ML UDCUP PO PRN (17:00)
[2019-07-26] MEDS ORDERED: GuaiFENesin/D-METHORPHAN [SUGAR-FREE] 200-20MG/10 ML SYRUP UDCUP PO PRN (17:00)
[2019-07-26] MEDS ORDERED: ONDANSETRON HCL 4 MG TABLET PO PRN (17:00)
[2019-07-26] MEDS ORDERED: CloNIDine HCL 0.1 MG TABLET PO PRN (17:00)
[2019-07-26] MEDS ORDERED: PETROLATUM,WHITE 28 GM JELLY TP PRN (17:00)
[2019-07-26] MEDS ORDERED: MAG HYDROX/AL HYDROX/SIMETH ES 30 ML SUSPENSION UDCUP PO PRN (17:00)
[2019-07-26] MEDS ORDERED: ACETAMINOPHEN 325 MG TABLET PO PRN (17:00)
[2019-07-26] MEDS ORDERED: IBUPROFEN 400 MG TABLET PO PRN (17:00)
[2019-07-26] MEDS ORDERED: LOPERAMIDE HCL 2 MG CAPSULE PO PRN (17:00)
[2019-07-26] MEDS ORDERED: ALBUTEROL SULFATE HFA 90 MCG/PUFF 8 GM INHALER IH PRN (17:00)
[2019-07-26] MEDS ORDERED: DOCUSATE SODIUM 100 MG CAPSULE PO PRN (17:00)
[2019-07-27] MEDS ORDERED: PNEUMOCOCCAL VACCINE POLYVALENT 0.5 ML VIAL [PPSV23] IM ONE (01:45)
[2019-07-27 07:11] VITALS: BP 136/74
[2019-07-27 08:13] VITALS: BP 137/80
[2019-07-27] MEDS: DiphenhydrAMINE HCL 25 MG CAPSULE PO SCH ×2 (11:05→20:20)
[2019-07-27] MEDS: QUEtiapine FUMARATE 200 MG TABLET PO SCH ×2 (11:05→20:19)
[2019-07-27] MEDS: SERTRALINE HCL 100 MG TABLET PO SCH ×2 (11:56→20:19)
[2019-07-27] MEDS ORDERED: LORazepam 1 MG TABLET PO PRN (13:45)
[2019-07-27 16:07] VITALS: BP 119/72
[2019-07-28 06:33] VITALS: BP 125/74
[2019-07-28 08:15] VITALS: BP 112/75
[2019-07-28] MEDS: QUEtiapine FUMARATE 200 MG TABLET PO SCH ×2 (08:52→20:57)
[2019-07-28] MEDS: SERTRALINE HCL 100 MG TABLET PO SCH ×2 (08:53→20:56)
[2019-07-28] MEDS: DiphenhydrAMINE HCL 25 MG CAPSULE PO SCH ×2 (08:53→20:57)
[2019-07-28] MEDS ORDERED: DiphenhydrAMINE HCL 50 MG CAPSULE PO PRN (11:00)
[2019-07-28 16:07] VITALS: BP 144/84
[2019-07-29 02:54] VITALS: BP 126/78
[2019-07-29] MEDS: QUEtiapine FUMARATE 200 MG TABLET PO SCH ×2 (08:17→20:32)
[2019-07-29] MEDS: DiphenhydrAMINE HCL 25 MG CAPSULE PO SCH ×2 (08:17→20:32)
[2019-07-29] MEDS: SERTRALINE HCL 100 MG TABLET PO SCH ×2 (08:18→20:32)
[2019-07-29 08:20] VITALS: BP 161/99
[2019-07-29 09:45] VITALS: BP 138/89
[2019-07-29 16:13] VITALS: BP 109/61
[2019-07-30 06:40] VITALS: BP 129/78
[2019-07-30] MEDS: DiphenhydrAMINE HCL 25 MG CAPSULE PO SCH ×2 (08:33→20:12)
[2019-07-30] MEDS: SERTRALINE HCL 100 MG TABLET PO SCH ×2 (08:33→20:12)
[2019-07-30] MEDS: QUEtiapine FUMARATE 200 MG TABLET PO SCH ×2 (08:33→20:12)
[2019-07-30 08:34] VITALS: BP 150/99
[2019-07-30 10:34] VITALS: BP 100/72
[2019-07-30 16:13] VITALS: BP 105/75
[2019-07-31 02:50] VITALS: BP 124/72
[2019-07-31 08:09] VITALS: BP 163/94
[2019-07-31] MEDS: QUEtiapine FUMARATE 200 MG TABLET PO SCH (08:09)
[2019-07-31] MEDS: DiphenhydrAMINE HCL 25 MG CAPSULE PO SCH (08:09)
[2019-07-31] MEDS: SERTRALINE HCL 100 MG TABLET PO SCH (08:09)
[2019-07-31] MEDS ORDERED: AmLODIPine BESYLATE 5 MG TABLET PO SCH (09:00)
[2019-07-31 09:30] VITALS: BP 117/70
== END 2019-07-31 15:03 | disposition home or self-care (01) | DRG 750 ==
LOC: EMS 12:31 → B3A 14:52
PROVIDERS: ADMIT Psychiatry & Neurology Psychiatry; ATTEND Psychiatry & Neurology Psychiatry
DX: F25.0 Schizoaffective disorder, bipolar type (principal); R45.851 Suicidal ideations; R45.850 Homicidal ideations; Z91.14 Patient's other noncompliance with medication regimen; D64.9 Anemia, unspecified; E03.9 Hypothyroidism, unspecified; E78.5 Hyperlipidemia, unspecified; G44.209 Tension-type headache, unspecified, not intractable; G47.00 Insomnia, unspecified; I10 Essential (primary) hypertension; I25.10 Atherosclerotic heart disease of native coronary artery without angina pectoris; Z86.73 Personal history of transient ischemic attack (TIA), and cerebral infarction without residual deficits; Z81.8 Family history of other mental and behavioral disorders; K21.9 Gastro-esophageal reflux disease without esophagitis; Z79.899 Other long term (current) drug therapy
CPT/HCPCS: 87081

== ENCOUNTER 2019-10-27 17:29 | Inpatient (IN) | payer MEDICAID, OTHER ==
[~2019-10-27] VITALS: Ht 160 cm; Wt 97.1 kg
[~2019-10-27 17:29] MED LIST changes: -CEPH500 PO
[2019-10-27 19:14] LABS: AMPHET/METH SCREEN,URINE NEGATIVE (NEGATIVE); BARBITURATE SCREEN, URINE NEGATIVE (NEGATIVE); BENZODIAZEPINES SCREEN,URINE NEGATIVE (NEGATIVE); CANNABINOID SCREEN,URINE NEGATIVE (NEGATIVE); COCAINE SCREEN,URINE NEGATIVE (NEGATIVE); METHADONE SCREEN, URINE NEGATIVE (NEGATIVE); OPIATE SCREEN,URINE NEGATIVE (NEGATIVE); PHENCYCLIDINE SCREEN,URINE NEGATIVE (NEGATIVE)
[2019-10-27] MEDS ORDERED: LORazepam 2 MG TABLET PO ONE (19:45)
[2019-10-27] MEDS ORDERED: HALOPERIDOL 5 MG TABLET PO ONE (19:45)
[2019-10-27] MEDS ORDERED: DiphenhydrAMINE HCL 50 MG CAPSULE PO ONE (19:45)
[2019-10-27] MEDS ORDERED: LORazepam 2 MG TABLET PO PRN (22:00)
[2019-10-27] MEDS ORDERED: ZOLPIDEM TARTRATE 10 MG TABLET PO PRN (22:00)
[2019-10-27] MEDS ORDERED: HALOPERIDOL 5 MG TABLET PO PRN (22:00)
[2019-10-27] MEDS ORDERED: ACETAMINOPHEN 325 MG TABLET PO PRN (22:15)
[2019-10-27] MEDS ORDERED: IBUPROFEN 400 MG TABLET PO PRN (22:15)
[2019-10-27] MEDS ORDERED: CloNIDine HCL 0.1 MG TABLET PO PRN (22:15)
[2019-10-27] MEDS ORDERED: ONDANSETRON HCL 4 MG TABLET PO PRN (22:15)
[2019-10-27] MEDS ORDERED: LOPERAMIDE HCL 2 MG CAPSULE PO PRN (22:15)
[2019-10-27] MEDS ORDERED: GuaiFENesin/D-METHORPHAN [SUGAR-FREE] 200-20MG/10 ML SYRUP UDCUP PO PRN (22:15)
[2019-10-27] MEDS ORDERED: MAGNESIUM HYDROXIDE SUSPENSION 30 ML UDCUP PO PRN (22:15)
[2019-10-27] MEDS ORDERED: MAG HYDROX/AL HYDROX/SIMETH ES 30 ML SUSPENSION UDCUP PO PRN (22:15)
[2019-10-27] MEDS ORDERED: PETROLATUM,WHITE 28 GM JELLY TP PRN (22:15)
[2019-10-27] MEDS ORDERED: NICOTINE 14 MG/24 HOUR PATCH TD PRN (22:15)
[2019-10-28 02:30] VITALS: BP 105/72
[2019-10-28] MEDS ORDERED: ALBUTEROL SULFATE HFA 90 MCG/PUFF 8 GM INHALER IH PRN (04:15)
[2019-10-28] MEDS ORDERED: DOCUSATE SODIUM 100 MG CAPSULE PO PRN (04:15)
[2019-10-28] MEDS ORDERED: IBUPROFEN 400 MG TABLET PO PRN (04:15)
[2019-10-28] MEDS ORDERED: ONDANSETRON HCL 4 MG TABLET PO PRN (04:15)
[2019-10-28] MEDS ORDERED: CloNIDine HCL 0.1 MG TABLET PO PRN (04:15)
[2019-10-28] MEDS ORDERED: LOPERAMIDE HCL 2 MG CAPSULE PO PRN (04:15)
[2019-10-28] MEDS ORDERED: NICOTINE 14 MG/24 HOUR PATCH TD PRN (04:15)
[2019-10-28] MEDS ORDERED: MAGNESIUM HYDROXIDE SUSPENSION 30 ML UDCUP PO PRN (04:15)
[2019-10-28] MEDS ORDERED: GuaiFENesin/D-METHORPHAN [SUGAR-FREE] 200-20MG/10 ML SYRUP UDCUP PO PRN (04:15)
[2019-10-28] MEDS ORDERED: ACETAMINOPHEN 325 MG TABLET PO PRN (04:15)
[2019-10-28] MEDS ORDERED: MAG HYDROX/AL HYDROX/SIMETH ES 30 ML SUSPENSION UDCUP PO PRN (04:15)
[2019-10-28] MEDS ORDERED: PETROLATUM,WHITE 28 GM JELLY TP PRN (04:15)
[2019-10-28] MEDS ORDERED: INFLUENZA VIRUS VACCINE QVS 2019-20 (3YR+)/PF 60 MCG/0.5 ML SYRINGE IM ONE (04:45)
[2019-10-28 08:41] VITALS: BP 133/86
[2019-10-28 17:00] VITALS: BP 140/85
[2019-10-28] MEDS ORDERED: LORazepam 1 MG TABLET PO PRN (18:00)
[2019-10-28] MEDS: QUEtiapine FUMARATE 200 MG TABLET PO SCH (20:11)
[2019-10-28] MEDS: SERTRALINE HCL 100 MG TABLET PO SCH (20:12)
[2019-10-28] MEDS: DOCUSATE SODIUM 100 MG CAPSULE PO PRN (20:45)
[2019-10-29 00:03] VITALS: BP 150/92
[2019-10-29 00:56] VITALS: BP 141/91
[2019-10-29] MEDS: SERTRALINE HCL 100 MG TABLET PO SCH ×2 (08:26→20:17)
[2019-10-29] MEDS: DOCUSATE SODIUM 100 MG CAPSULE PO PRN (08:26)
[2019-10-29] MEDS: QUEtiapine FUMARATE 200 MG TABLET PO SCH ×2 (08:26→20:17)
[2019-10-29 08:35] VITALS: BP 130/90
[2019-10-29 16:45] VITALS: BP 136/84
[2019-10-30 05:44] VITALS: BP 128/80
[2019-10-30] MEDS: QUEtiapine FUMARATE 200 MG TABLET PO SCH (08:11)
[2019-10-30] MEDS: SERTRALINE HCL 100 MG TABLET PO SCH (08:11)
[2019-10-30 08:51] VITALS: BP 120/63
== END 2019-10-30 13:30 | disposition home or self-care (01) | DRG 750 ==
LOC: EMS 17:31 → B2S 10-28 01:04
PROVIDERS: ADMIT Psychiatry & Neurology Psychiatry; ATTEND Psychiatry & Neurology Psychiatry
DX: F25.0 Schizoaffective disorder, bipolar type (principal); R45.851 Suicidal ideations; Z28.21 Immunization not carried out because of patient refusal; I10 Essential (primary) hypertension; K21.9 Gastro-esophageal reflux disease without esophagitis; F41.9 Anxiety disorder, unspecified; E78.5 Hyperlipidemia, unspecified; Z81.8 Family history of other mental and behavioral disorders; R73.03 Prediabetes

== ENCOUNTER 2019-12-15 14:14 | Inpatient (IN) | payer MEDICAID, OTHER ==
[~2019-12-15] VITALS: Ht 160 cm; Wt 96.9 kg
[~2019-12-15 14:14] MED LIST changes: -DIPH25 PO
[2019-12-15] MEDS ORDERED: LORazepam 2 MG TABLET PO ONE (16:00)
[2019-12-15] MEDS ORDERED: HALOPERIDOL 5 MG TABLET PO PRN (17:45)
[2019-12-15] MEDS ORDERED: ZOLPIDEM TARTRATE 10 MG TABLET PO PRN (17:45)
[2019-12-15 20:12] VITALS: BP 122/73
[2019-12-15] MEDS ORDERED: PNEUMOCOCCAL VACCINE POLYVALENT 0.5 ML VIAL [PPSV23] IM ONE (20:45)
[2019-12-15 20:54] VITALS: BP 122/73
[2019-12-16] MEDS ORDERED: ONDANSETRON HCL 4 MG TABLET PO PRN (07:45)
[2019-12-16] MEDS ORDERED: CloNIDine HCL 0.1 MG TABLET PO PRN (07:45)
[2019-12-16] MEDS ORDERED: DOCUSATE SODIUM 100 MG CAPSULE PO PRN (07:45)
[2019-12-16] MEDS ORDERED: IBUPROFEN 600 MG TABLET PO PRN (07:45)
[2019-12-16] MEDS ORDERED: LOPERAMIDE HCL 2 MG CAPSULE PO PRN (07:45)
[2019-12-16] MEDS ORDERED: ACETAMINOPHEN 325 MG TABLET PO PRN (07:45)
[2019-12-16] MEDS ORDERED: PETROLATUM,WHITE 28 GM JELLY TP PRN (07:45)
[2019-12-16] MEDS ORDERED: BACITRACIN 28.4 GM OINTMENT TP PRN (07:45)
[2019-12-16] MEDS ORDERED: MAG HYDROX/AL HYDROX/SIMETH ES 30 ML SUSPENSION UDCUP PO PRN (07:45)
[2019-12-16] MEDS ORDERED: MAGNESIUM HYDROXIDE SUSPENSION 30 ML UDCUP PO PRN (07:45)
[2019-12-16] MEDS ORDERED: OMEPRAZOLE 20 MG CAPSULE PO PRN (07:45)
[2019-12-16] MEDS ORDERED: BENZOCAINE/MENTHOL LOZENGE MM PRN (07:45)
[2019-12-16] MEDS: QUEtiapine FUMARATE 200 MG TABLET PO SCH ×2 (09:01→16:16)
[2019-12-16] MEDS: SERTRALINE HCL 100 MG TABLET PO SCH (09:02)
[2019-12-16 10:00] VITALS: BP 140/81
[2019-12-16 17:24] VITALS: BP 135/81
[2019-12-17 01:37] VITALS: BP 133/84
[2019-12-17] MEDS: LORazepam 2 MG TABLET PO PRN (01:39)
[2019-12-17] MEDS: QUEtiapine FUMARATE 200 MG TABLET PO SCH ×2 (08:21→17:43)
[2019-12-17] MEDS: SERTRALINE HCL 100 MG TABLET PO SCH ×2 (08:24→17:43)
[2019-12-17 08:45] VITALS: BP 139/88
[2019-12-17 16:32] VITALS: BP 158/100
[2019-12-18 05:33] VITALS: BP 142/91
[2019-12-18] MEDS: SERTRALINE HCL 100 MG TABLET PO SCH ×2 (09:33→16:46)
[2019-12-18] MEDS: QUEtiapine FUMARATE 200 MG TABLET PO SCH ×2 (09:33→16:46)
[2019-12-18 11:23] VITALS: BP 179/98
[2019-12-18 11:32] VITALS: BP 130/74
[2019-12-18 17:56] VITALS: BP 137/90
[2019-12-18 17:59] VITALS: BP 137/90
[2019-12-19 08:30] VITALS: BP 157/87
[2019-12-19] MEDS: SERTRALINE HCL 100 MG TABLET PO SCH ×2 (09:32→20:40)
[2019-12-19] MEDS: QUEtiapine FUMARATE 200 MG TABLET PO SCH ×2 (09:33→20:39)
[2019-12-19 16:00] VITALS: BP 115/77
[2019-12-20 04:28] VITALS: BP 142/81
[2019-12-20] MEDS: LORazepam 2 MG TABLET PO PRN ×2 (04:28→16:05)
[2019-12-20] MEDS: QUEtiapine FUMARATE 200 MG TABLET PO SCH ×2 (08:32→20:39)
[2019-12-20] MEDS: SERTRALINE HCL 100 MG TABLET PO SCH ×2 (08:33→20:39)
[2019-12-20 09:54] VITALS: BP 134/78
[2019-12-20 17:38] VITALS: BP 125/80
[2019-12-21 02:10] VITALS: BP 129/79
[2019-12-21 09:06] VITALS: BP 125/78
[2019-12-21] MEDS: SERTRALINE HCL 100 MG TABLET PO SCH ×2 (09:28→20:50)
[2019-12-21] MEDS: QUEtiapine FUMARATE 200 MG TABLET PO SCH ×2 (09:28→20:50)
[2019-12-21 17:39] VITALS: BP 118/73
[2019-12-21] MEDS: LORazepam 2 MG TABLET PO PRN (20:54)
[2019-12-22] MEDS: LORazepam 2 MG TABLET PO PRN (03:13)
[2019-12-22 03:30] VITALS: BP 106/72
[2019-12-22 08:00] VITALS: BP 126/96
[2019-12-22] MEDS: SERTRALINE HCL 100 MG TABLET PO SCH ×2 (09:08→20:24)
[2019-12-22] MEDS: QUEtiapine FUMARATE 200 MG TABLET PO SCH ×2 (09:08→20:24)
[2019-12-22 17:00] VITALS: BP 126/87
[2019-12-23 03:11] VITALS: BP 132/91
[2019-12-23] MEDS: LORazepam 2 MG TABLET PO PRN (03:11)
[2019-12-23 09:22] VITALS: BP 154/79
[2019-12-23] MEDS: SERTRALINE HCL 100 MG TABLET PO SCH ×2 (10:42→20:28)
[2019-12-23] MEDS: QUEtiapine FUMARATE 200 MG TABLET PO SCH ×2 (10:43→20:28)
[2019-12-23 16:35] VITALS: BP 140/76
[2019-12-24] MEDS: LORazepam 2 MG TABLET PO PRN (03:42)
[2019-12-24 03:45] VITALS: BP 136/74
[2019-12-24 08:58] VITALS: BP 160/89
[2019-12-24] MEDS: QUEtiapine FUMARATE 200 MG TABLET PO SCH ×2 (10:10→20:21)
[2019-12-24] MEDS: SERTRALINE HCL 100 MG TABLET PO SCH ×2 (10:10→20:21)
[2019-12-24 16:33] VITALS: BP 160/96
[2019-12-25] MEDS: LORazepam 2 MG TABLET PO PRN ×2 (03:05→20:26)
[2019-12-25 03:46] VITALS: BP 139/78
[2019-12-25] MEDS: QUEtiapine FUMARATE 200 MG TABLET PO SCH ×2 (08:41→20:27)
[2019-12-25] MEDS: SERTRALINE HCL 100 MG TABLET PO SCH ×2 (08:41→20:27)
[2019-12-25 09:00] VITALS: BP 146/94
[2019-12-25 18:31] VITALS: BP 146/95
[2019-12-26 06:58] VITALS: BP 129/89
[2019-12-26] MEDS ORDERED: LISI-661 PO (08:25)
[2019-12-26] MEDS ORDERED: LISINOPRIL 10 MG TABLET PO SCH (09:00)
[2019-12-26] MEDS: QUEtiapine FUMARATE 200 MG TABLET PO SCH (09:05)
[2019-12-26] MEDS: SERTRALINE HCL 100 MG TABLET PO SCH (09:06)
[2019-12-26 10:18] VITALS: BP 140/74
== END 2019-12-26 11:15 | disposition home or self-care (01) | DRG 885 ==
LOC: EMS 14:16 → 3EI 18:12
PROVIDERS: ADMIT Psychiatry & Neurology Psychiatry; ATTEND Psychiatry & Neurology Psychiatry
DX: F25.0 Schizoaffective disorder, bipolar type (principal); R45.851 Suicidal ideations; E03.9 Hypothyroidism, unspecified; K21.9 Gastro-esophageal reflux disease without esophagitis; I10 Essential (primary) hypertension; F19.90 Other psychoactive substance use, unspecified, uncomplicated; F41.9 Anxiety disorder, unspecified; D64.9 Anemia, unspecified; G47.00 Insomnia, unspecified; K59.00 Constipation, unspecified; M54.9 Dorsalgia, unspecified; Z72.0 Tobacco use; Z91.5 Personal history of self-harm; Z81.8 Family history of other mental and behavioral disorders; Z59.0 Homelessness; Z28.21 Immunization not carried out because of patient refusal

== ENCOUNTER 2019-12-31 02:48 | Inpatient (IN) | payer MEDICAID, OTHER ==
[~2019-12-31] VITALS: Ht 160 cm; Wt 99.8 kg
[~2019-12-31 02:48] MED LIST changes: +LISI-661 PO
[2019-12-31] MEDS ORDERED: DIPH25CA85 PO (03:02)
[2019-12-31] MEDS ORDERED: SERTRALINE HCL 100 MG TABLET PO ONE (05:30)
[2019-12-31] MEDS ORDERED: QUEtiapine FUMARATE 100 MG TABLET PO ONE (05:30)
[2019-12-31] MEDS ORDERED: DiphenhydrAMINE HCL 25 MG CAPSULE PO ONE (05:30)
[2019-12-31] MEDS ORDERED: HALOPERIDOL 5 MG TABLET PO PRN (10:45)
[2019-12-31] MEDS ORDERED: ZOLPIDEM TARTRATE 10 MG TABLET PO PRN (10:45)
[2019-12-31] MEDS ORDERED: LORazepam 2 MG TABLET PO PRN (10:45)
[2019-12-31] MEDS ORDERED: LORazepam 1 MG TABLET PO ONE (11:00)
[2019-12-31 16:03] VITALS: BP 132/81
[2020-01-01 05:03] VITALS: BP 125/68
[2020-01-01] MEDS ORDERED: CloNIDine HCL 0.1 MG TABLET PO PRN (06:30)
[2020-01-01] MEDS ORDERED: MAGNESIUM HYDROXIDE SUSPENSION 30 ML UDCUP PO PRN (06:30)
[2020-01-01] MEDS ORDERED: MAG HYDROX/AL HYDROX/SIMETH ES 30 ML SUSPENSION UDCUP PO PRN (06:30)
[2020-01-01] MEDS ORDERED: IBUPROFEN 600 MG TABLET PO PRN (06:30)
[2020-01-01] MEDS ORDERED: ACETAMINOPHEN 325 MG TABLET PO PRN (06:30)
[2020-01-01] MEDS ORDERED: PETROLATUM,WHITE 28 GM JELLY TP PRN (06:30)
[2020-01-01] MEDS ORDERED: ONDANSETRON HCL 4 MG TABLET PO PRN (06:30)
[2020-01-01] MEDS ORDERED: BACITRACIN 28.4 GM OINTMENT TP PRN (06:30)
[2020-01-01] MEDS ORDERED: BENZOCAINE/MENTHOL LOZENGE MM PRN (06:30)
[2020-01-01] MEDS ORDERED: LOPERAMIDE HCL 2 MG CAPSULE PO PRN (06:30)
[2020-01-01] MEDS: DOCUSATE SODIUM 100 MG CAPSULE PO SCH (08:03)
[2020-01-01] MEDS: OMEPRAZOLE 20 MG CAPSULE PO SCH (08:04)
[2020-01-01] MEDS: LISINOPRIL 10 MG TABLET PO SCH (08:04)
[2020-01-01 08:22] VITALS: BP 151/85
[2020-01-01 10:30] VITALS: BP 134/78
[2020-01-01] MEDS: SERTRALINE HCL 100 MG TABLET PO SCH ×2 (10:53→20:19)
[2020-01-01] MEDS: QUEtiapine FUMARATE 200 MG TABLET PO SCH ×2 (10:53→20:19)
[2020-01-01] MEDS: GABAPENTIN 300 MG CAPSULE PO SCH ×2 (10:54→16:56)
[2020-01-01] MEDS: LORazepam 1 MG TABLET PO PRN ×2 (10:58→20:19)
[2020-01-01 16:11] VITALS: BP 122/73
[2020-01-01] MEDS ORDERED: DOCU-275 PO (22:15)
[2020-01-01] MEDS ORDERED: OMEP20 PO (22:15)
[2020-01-01] MEDS ORDERED: GABA-531 PO (22:15)
[2020-01-02 05:28] VITALS: BP 125/78
[2020-01-02 08:14] VITALS: BP 123/87
[2020-01-02] MEDS: QUEtiapine FUMARATE 200 MG TABLET PO SCH ×2 (08:22→20:34)
[2020-01-02] MEDS: LORazepam 1 MG TABLET PO PRN ×2 (08:23→10:02)
[2020-01-02] MEDS: DOCUSATE SODIUM 100 MG CAPSULE PO SCH (08:23)
[2020-01-02] MEDS: SERTRALINE HCL 100 MG TABLET PO SCH ×2 (08:23→20:35)
[2020-01-02] MEDS: GABAPENTIN 300 MG CAPSULE PO SCH (08:32)
[2020-01-02] MEDS: OMEPRAZOLE 20 MG CAPSULE PO SCH (08:32)
[2020-01-02] MEDS: LISINOPRIL 10 MG TABLET PO SCH (08:33)
[2020-01-02 16:55] VITALS: BP 134/82
[2020-01-03 06:39] VITALS: BP 129/82
[2020-01-03 08:33] VITALS: BP 162/93
[2020-01-03] MEDS: OMEPRAZOLE 20 MG CAPSULE PO SCH (09:00)
[2020-01-03] MEDS: LISINOPRIL 10 MG TABLET PO SCH (09:00)
[2020-01-03] MEDS: DOCUSATE SODIUM 100 MG CAPSULE PO SCH (09:24)
[2020-01-03] MEDS: SERTRALINE HCL 100 MG TABLET PO SCH ×2 (09:24→20:32)
[2020-01-03] MEDS: QUEtiapine FUMARATE 200 MG TABLET PO SCH ×2 (09:24→20:32)
[2020-01-03] MEDS: LORazepam 1 MG TABLET PO PRN (09:29)
[2020-01-03 14:00] VITALS: BP 134/81
[2020-01-03 17:32] VITALS: BP 121/74
[2020-01-04 06:29] VITALS: BP 126/78
[2020-01-04 08:10] VITALS: BP 135/81
[2020-01-04] MEDS: OMEPRAZOLE 20 MG CAPSULE PO SCH (08:54)
[2020-01-04] MEDS: LISINOPRIL 10 MG TABLET PO SCH (08:54)
[2020-01-04] MEDS: DOCUSATE SODIUM 100 MG CAPSULE PO SCH (08:54)
[2020-01-04] MEDS: SERTRALINE HCL 100 MG TABLET PO SCH ×2 (08:54→20:55)
[2020-01-04] MEDS: QUEtiapine FUMARATE 200 MG TABLET PO SCH ×2 (08:54→20:55)
[2020-01-04] MEDS: LORazepam 1 MG TABLET PO PRN ×2 (08:55→21:59)
[2020-01-04 16:06] VITALS: BP 126/76
[2020-01-05 04:17] VITALS: BP 138/92
[2020-01-05 08:28] VITALS: BP 132/72
[2020-01-05] MEDS: LORazepam 1 MG TABLET PO PRN ×2 (08:54→16:06)
[2020-01-05] MEDS: DOCUSATE SODIUM 100 MG CAPSULE PO SCH (08:54)
[2020-01-05] MEDS: SERTRALINE HCL 100 MG TABLET PO SCH ×2 (08:54→20:16)
[2020-01-05] MEDS: QUEtiapine FUMARATE 200 MG TABLET PO SCH ×2 (08:54→20:16)
[2020-01-05] MEDS: OMEPRAZOLE 20 MG CAPSULE PO SCH (08:58)
[2020-01-05] MEDS: LISINOPRIL 10 MG TABLET PO SCH (08:58)
[2020-01-05 16:27] VITALS: BP 135/81
[2020-01-06 03:45] VITALS: BP 102/60
[2020-01-06 08:17] VITALS: BP 148/85
[2020-01-06] MEDS: QUEtiapine FUMARATE 200 MG TABLET PO SCH ×2 (08:32→21:13)
[2020-01-06] MEDS: DOCUSATE SODIUM 100 MG CAPSULE PO SCH (08:32)
[2020-01-06] MEDS: SERTRALINE HCL 100 MG TABLET PO SCH ×2 (08:33→21:13)
[2020-01-06] MEDS: LISINOPRIL 10 MG TABLET PO SCH (08:37)
[2020-01-06] MEDS: OMEPRAZOLE 20 MG CAPSULE PO SCH (08:38)
[2020-01-06] MEDS: LORazepam 1 MG TABLET PO PRN ×2 (12:42→21:13)
[2020-01-06 16:02] VITALS: BP 114/63
[2020-01-07 03:32] VITALS: BP 100/68
[2020-01-07 08:30] VITALS: BP 140/82
[2020-01-07] MEDS: OMEPRAZOLE 20 MG CAPSULE PO SCH (09:00)
[2020-01-07] MEDS: LISINOPRIL 10 MG TABLET PO SCH (09:00)
[2020-01-07] MEDS: QUEtiapine FUMARATE 200 MG TABLET PO SCH ×2 (09:23→20:19)
[2020-01-07] MEDS: SERTRALINE HCL 100 MG TABLET PO SCH ×2 (09:23→20:19)
[2020-01-07] MEDS: DOCUSATE SODIUM 100 MG CAPSULE PO SCH (09:23)
[2020-01-07] MEDS: LORazepam 1 MG TABLET PO PRN ×2 (10:29→20:58)
[2020-01-07 16:11] VITALS: BP 125/70
[2020-01-08 04:27] VITALS: BP 105/60
[2020-01-08 08:21] VITALS: BP 124/78
[2020-01-08] MEDS: OMEPRAZOLE 20 MG CAPSULE PO SCH (09:00)
[2020-01-08] MEDS: LISINOPRIL 10 MG TABLET PO SCH (09:00)
[2020-01-08] MEDS: QUEtiapine FUMARATE 200 MG TABLET PO SCH ×2 (09:22→21:22)
[2020-01-08] MEDS: LORazepam 1 MG TABLET PO PRN ×2 (09:22→21:32)
[2020-01-08] MEDS: SERTRALINE HCL 100 MG TABLET PO SCH ×2 (09:22→21:22)
[2020-01-08] MEDS: DOCUSATE SODIUM 100 MG CAPSULE PO SCH (09:23)
[2020-01-08 16:22] VITALS: BP 123/77
[2020-01-09 03:43] VITALS: BP 102/68
[2020-01-09] MEDS: QUEtiapine FUMARATE 200 MG TABLET PO SCH ×2 (08:14→20:39)
[2020-01-09] MEDS: SERTRALINE HCL 100 MG TABLET PO SCH ×2 (08:14→20:39)
[2020-01-09] MEDS: OMEPRAZOLE 20 MG CAPSULE PO SCH (08:14)
[2020-01-09] MEDS: LORazepam 1 MG TABLET PO PRN ×2 (08:14→20:39)
[2020-01-09] MEDS: DOCUSATE SODIUM 100 MG CAPSULE PO SCH (08:14)
[2020-01-09 08:37] VITALS: BP 138/82
[2020-01-09 16:05] VITALS: BP 134/84
[2020-01-10 02:23] VITALS: BP 120/66
[2020-01-10] MEDS: OMEPRAZOLE 20 MG CAPSULE PO SCH (09:00)
[2020-01-10] MEDS: SERTRALINE HCL 100 MG TABLET PO SCH ×2 (09:20→21:24)
[2020-01-10] MEDS: QUEtiapine FUMARATE 200 MG TABLET PO SCH ×2 (09:20→21:24)
[2020-01-10] MEDS: LORazepam 1 MG TABLET PO PRN ×2 (09:20→21:24)
[2020-01-10] MEDS: DOCUSATE SODIUM 100 MG CAPSULE PO SCH (09:20)
[2020-01-10 16:37] VITALS: BP 135/88
[2020-01-11 05:15] VITALS: BP 120/76
[2020-01-11 08:20] VITALS: BP 140/80
[2020-01-11] MEDS: QUEtiapine FUMARATE 200 MG TABLET PO SCH ×2 (08:42→21:04)
[2020-01-11] MEDS: DOCUSATE SODIUM 100 MG CAPSULE PO SCH (08:43)
[2020-01-11] MEDS: SERTRALINE HCL 100 MG TABLET PO SCH ×2 (08:43→21:04)
[2020-01-11] MEDS: OMEPRAZOLE 20 MG CAPSULE PO SCH (08:47)
[2020-01-11 16:16] VITALS: BP 131/79
[2020-01-12 03:58] VITALS: BP 127/64
[2020-01-12] MEDS: DOCUSATE SODIUM 100 MG CAPSULE PO SCH (08:45)
[2020-01-12] MEDS: QUEtiapine FUMARATE 200 MG TABLET PO SCH ×2 (08:45→21:59)
[2020-01-12] MEDS: SERTRALINE HCL 100 MG TABLET PO SCH ×2 (08:52→21:59)
[2020-01-12] MEDS: LORazepam 1 MG TABLET PO PRN ×3 (08:55→21:59)
[2020-01-12] MEDS: OMEPRAZOLE 20 MG CAPSULE PO SCH (09:00)
[2020-01-12 10:00] VITALS: BP 150/85
[2020-01-12 16:14] VITALS: BP 132/76
[2020-01-12] MEDS: OLANZapine 5 MG TABLET PO SCH (18:17)
[2020-01-13 05:21] VITALS: BP 124/72
[2020-01-13 08:13] VITALS: BP 129/80
[2020-01-13] MEDS: OMEPRAZOLE 20 MG CAPSULE PO SCH (09:00)
[2020-01-13] MEDS: DOCUSATE SODIUM 100 MG CAPSULE PO SCH (09:10)
[2020-01-13] MEDS: OLANZapine 5 MG TABLET PO SCH ×2 (09:10→16:56)
[2020-01-13] MEDS: LORazepam 1 MG TABLET PO PRN ×2 (09:10→21:18)
[2020-01-13] MEDS: SERTRALINE HCL 100 MG TABLET PO SCH ×2 (09:10→21:07)
[2020-01-13] MEDS: QUEtiapine FUMARATE 200 MG TABLET PO SCH ×2 (09:10→21:01)
[2020-01-13 16:36] VITALS: BP 134/81
[2020-01-14 05:27] VITALS: BP 101/78
[2020-01-14 08:33] VITALS: BP 148/78
[2020-01-14] MEDS: SERTRALINE HCL 100 MG TABLET PO SCH ×2 (08:37→20:15)
[2020-01-14] MEDS: OLANZapine 5 MG TABLET PO SCH ×2 (08:37→17:00)
[2020-01-14] MEDS: OMEPRAZOLE 20 MG CAPSULE PO SCH (08:37)
[2020-01-14] MEDS: QUEtiapine FUMARATE 200 MG TABLET PO SCH ×2 (08:37→20:16)
[2020-01-14] MEDS: LORazepam 1 MG TABLET PO PRN (08:37)
[2020-01-14] MEDS: DOCUSATE SODIUM 100 MG CAPSULE PO SCH (08:43)
[2020-01-14 16:09] VITALS: BP 139/79
[2020-01-14] MEDS ORDERED: OLAN5TAB2 PO (19:44)
[2020-01-15] MEDS: LORazepam 1 MG TABLET PO PRN ×2 (02:54→09:29)
[2020-01-15 04:08] VITALS: BP 139/81
[2020-01-15 08:25] VITALS: BP 132/87
[2020-01-15] MEDS: QUEtiapine FUMARATE 200 MG TABLET PO SCH ×2 (08:39→19:04)
[2020-01-15] MEDS: OLANZapine 5 MG TABLET PO SCH ×2 (08:39→16:23)
[2020-01-15] MEDS: SERTRALINE HCL 100 MG TABLET PO SCH ×2 (08:39→19:04)
[2020-01-15] MEDS: OMEPRAZOLE 20 MG CAPSULE PO SCH (08:40)
[2020-01-15] MEDS: DOCUSATE SODIUM 100 MG CAPSULE PO SCH (08:42)
[2020-01-15 16:13] VITALS: BP 119/75
== END 2020-01-15 19:00 | disposition home or self-care (01) | DRG 750 ==
LOC: EMS 02:50 → B3A 10:49
PROVIDERS: ADMIT Psychiatry & Neurology Psychiatry; ATTEND Psychiatry & Neurology Psychiatry
DX: F25.0 Schizoaffective disorder, bipolar type (principal); R45.851 Suicidal ideations; Z59.0 Homelessness; E03.9 Hypothyroidism, unspecified; F17.200 Nicotine dependence, unspecified, uncomplicated; F41.9 Anxiety disorder, unspecified; G47.00 Insomnia, unspecified; I10 Essential (primary) hypertension; K59.00 Constipation, unspecified; F19.10 Other psychoactive substance abuse, uncomplicated; K21.9 Gastro-esophageal reflux disease without esophagitis; F32.9 Major depressive disorder, single episode, unspecified; Z91.14 Patient's other noncompliance with medication regimen; Z88.8 Allergy status to other drugs, medicaments and biological substances; Z81.8 Family history of other mental and behavioral disorders
CPT/HCPCS: 87081

== ENCOUNTER 2021-03-11 17:16 | Inpatient (IN) | payer MEDICAID, OTHER ==
[~2021-03-11] VITALS: Ht 160 cm; Wt 109.3 kg
[~2021-03-11 17:16] MED LIST changes: -LISI-661 PO; +OLAN5TAB2 PO; +SERT-162 PO; -SERT100T12 PO
[2021-03-11 20:41] LABS: COVID AG,FIA SOURCE NASOPHARYNGEAL
[2021-03-11 21:16] LABS: AMPHET/METH SCREEN,URINE NEGATIVE (NEGATIVE); BARBITURATE SCREEN, URINE NEGATIVE (NEGATIVE); BENZODIAZEPINES SCREEN,URINE POSITIVE (NEGATIVE); CANNABINOID SCREEN,URINE NEGATIVE (NEGATIVE); COCAINE SCREEN,URINE NEGATIVE (NEGATIVE); METHADONE SCREEN, URINE NEGATIVE (NEGATIVE); OPIATE SCREEN,URINE NEGATIVE (NEGATIVE); PHENCYCLIDINE SCREEN,URINE NEGATIVE (NEGATIVE)
[2021-03-11] MEDS ORDERED: LORazepam 1 MG TABLET PO ONE (21:45)
[2021-03-11] MEDS ORDERED: ZOLPIDEM TARTRATE 10 MG TABLET PO PRN (22:00)
[2021-03-11] MEDS ORDERED: HALOPERIDOL 5 MG TABLET PO PRN (22:00)
[2021-03-12 02:18] VITALS: BP 131/70
[2021-03-12 02:54] VITALS: BP 131/70
[2021-03-12] MEDS ORDERED: INFLUENZA VIRUS VACCINE QVS 2020-21 (6MO+)/PF 60 MCG/0.5 ML SYRINGE IM. ONE (03:15)
[2021-03-12 09:04] VITALS: BP 120/72
[2021-03-12] MEDS ORDERED: LOPERAMIDE HCL 2 MG CAPSULE PO PRN (10:30)
[2021-03-12] MEDS ORDERED: PETROLATUM,WHITE 28 GM JELLY TP PRN (10:30)
[2021-03-12] MEDS ORDERED: ONDANSETRON HCL 4 MG TABLET PO PRN (10:30)
[2021-03-12] MEDS ORDERED: ACETAMINOPHEN 325 MG TABLET PO PRN (10:30)
[2021-03-12] MEDS ORDERED: MAG HYDROX/AL HYDROX/SIMETH ES 30 ML SUSPENSION UDCUP PO PRN (10:30)
[2021-03-12] MEDS ORDERED: MAGNESIUM HYDROXIDE SUSPENSION 30 ML UDCUP PO PRN (10:30)
[2021-03-12] MEDS ORDERED: IBUPROFEN 400 MG TABLET PO PRN (10:30)
[2021-03-12] MEDS ORDERED: ALBUTEROL SULFATE HFA 90 MCG/PUFF 8 GM INHALER IH PRN (10:30)
[2021-03-12] MEDS ORDERED: CloNIDine HCL 0.1 MG TABLET PO PRN (10:30)
[2021-03-12] MEDS ORDERED: NICOTINE 14 MG/24 HOUR PATCH TD PRN (10:30)
[2021-03-12] MEDS ORDERED: DOCUSATE SODIUM 100 MG CAPSULE PO PRN (10:30)
[2021-03-12] MEDS ORDERED: GuaiFENesin/D-METHORPHAN [SUGAR-FREE] 200-20MG/10 ML SYRUP UDCUP PO PRN (10:30)
[2021-03-12] MEDS: LORazepam 2 MG TABLET PO PRN (11:35)
[2021-03-12] MEDS ORDERED: DiphenhydrAMINE HCL 25 MG CAPSULE PO PRN (13:15)
[2021-03-12] MEDS: QUEtiapine FUMARATE 200 MG TABLET PO SCH (16:06)
[2021-03-12] MEDS: SERTRALINE HCL 100 MG TABLET PO SCH (16:07)
[2021-03-12 16:43] VITALS: BP 141/85
[2021-03-13 00:05] VITALS: BP 126/76
[2021-03-13] MEDS: SERTRALINE HCL 100 MG TABLET PO SCH (08:29)
[2021-03-13] MEDS: QUEtiapine FUMARATE 200 MG TABLET PO SCH (08:29)
[2021-03-13] MEDS: LORazepam 2 MG TABLET PO PRN (08:35)
[2021-03-13 09:34] VITALS: BP 159/90
== END 2021-03-13 15:30 | disposition home or self-care (01) | DRG 754 ==
LOC: EMS 17:18 → 3EI 21:51
PROVIDERS: ADMIT Psychiatry & Neurology Psychiatry; ATTEND Psychiatry & Neurology Psychiatry
DX: F32.9 Major depressive disorder, single episode, unspecified (principal); R45.851 Suicidal ideations; E03.9 Hypothyroidism, unspecified; E66.9 Obesity, unspecified; E78.5 Hyperlipidemia, unspecified; F41.9 Anxiety disorder, unspecified; I10 Essential (primary) hypertension; K21.9 Gastro-esophageal reflux disease without esophagitis; Z20.822 Contact with and (suspected) exposure to COVID-19; Z53.20 Procedure and treatment not carried out because of patient's decision for unspecified reasons; Z91.5 Personal history of self-harm
CPT/HCPCS: 87426; 99285

== ENCOUNTER 2021-06-20 17:03 | Inpatient (IN) | payer MEDICAID, OTHER ==
[~2021-06-20] VITALS: Ht 160 cm; Wt 111.1 kg
[~2021-06-20 17:03] MED LIST changes: -OLAN5TAB2 PO
[2021-06-20] MEDS ORDERED: LORazepam 1 MG TABLET PO ONE (19:30)
[2021-06-20] MEDS ORDERED: HALOPERIDOL 5 MG TABLET PO PRN (20:45)
[2021-06-20] MEDS ORDERED: ZOLPIDEM TARTRATE 10 MG TABLET PO PRN (20:45)
[2021-06-20 21:22] LABS: COVID AG,FIA SOURCE NASOPHARYNGEAL
[2021-06-20 22:52] LABS: APPEARANCE,URINE CLOUDY (CLEAR); BILIRUBIN,URINE NEGATIVE (NEGATIVE); GLUCOSE, URINE (UA) NEGATIVE (NEGATIVE); KETONES,URINE NEGATIVE (NEGATIVE); LEUKOCYTE ESTERASE ,URINE NEGATIVE (NEGATIVE); NITRATE,URINE NEGATIVE (NEGATIVE); OCCULT BLOOD,URINE TRACE (NEGATIVE); PROTEIN,URINE NEGATIVE (NEGATIVE); UROBILINOGEN,URINE 0.2 mg/dL (<=1.0)
[2021-06-20 23:06] LABS: AMPHET/METH SCREEN,URINE NEGATIVE (NEGATIVE); BARBITURATE SCREEN, URINE NEGATIVE (NEGATIVE); BENZODIAZEPINES SCREEN,URINE POSITIVE (NEGATIVE); CANNABINOID SCREEN,URINE NEGATIVE (NEGATIVE); COCAINE SCREEN,URINE NEGATIVE (NEGATIVE); METHADONE SCREEN, URINE NEGATIVE (NEGATIVE); OPIATE SCREEN,URINE NEGATIVE (NEGATIVE)
[2021-06-20 23:07] LABS: PHENCYCLIDINE SCREEN,URINE NEGATIVE (NEGATIVE)
[2021-06-20 23:21] LABS: BACTERIA,URINE Few /HPF (None Seen); RBC,URINE 0-2 /HPF (0-2); WBC,URINE 0-2 /HPF (0-5)
[2021-06-20 23:22] LABS: SQUAMOUS EPITHELIAL CELL,UR Moderate /LPF (None Seen)
[2021-06-21 03:10] VITALS: BP 110/70
[2021-06-21 08:33] VITALS: BP 131/81
[2021-06-21] MEDS: LORazepam 2 MG TABLET PO PRN ×2 (09:23→14:47)
[2021-06-21] MEDS ORDERED: ALBUTEROL SULFATE HFA 90 MCG/PUFF 8 GM INHALER IH PRN (09:45)
[2021-06-21] MEDS ORDERED: ONDANSETRON HCL 4 MG TABLET PO PRN (09:45)
[2021-06-21] MEDS ORDERED: MAG HYDROX/AL HYDROX/SIMETH ES 30 ML SUSPENSION UDCUP PO PRN (09:45)
[2021-06-21] MEDS ORDERED: DOCUSATE SODIUM 100 MG CAPSULE PO PRN (09:45)
[2021-06-21] MEDS ORDERED: PETROLATUM,WHITE 28 GM JELLY TP PRN (09:45)
[2021-06-21] MEDS ORDERED: MAGNESIUM HYDROXIDE SUSPENSION 30 ML UDCUP PO PRN (09:45)
[2021-06-21] MEDS ORDERED: GuaiFENesin/D-METHORPHAN [SUGAR-FREE] 200-20MG/10 ML SYRUP UDCUP PO PRN (09:45)
[2021-06-21] MEDS ORDERED: IBUPROFEN 400 MG TABLET PO PRN (09:45)
[2021-06-21] MEDS ORDERED: CloNIDine HCL 0.1 MG TABLET PO PRN (09:45)
[2021-06-21] MEDS ORDERED: ACETAMINOPHEN 325 MG TABLET PO PRN (09:45)
[2021-06-21] MEDS ORDERED: LOPERAMIDE HCL 2 MG CAPSULE PO PRN (09:45)
[2021-06-21] MEDS ORDERED: NICOTINE 14 MG/24 HOUR PATCH TD PRN (09:45)
[2021-06-21 16:28] VITALS: BP 109/71
[2021-06-21] MEDS: SERTRALINE HCL 100 MG TABLET PO SCH (16:30)
[2021-06-21] MEDS: QUEtiapine FUMARATE 200 MG TABLET PO SCH (16:30)
[2021-06-22 00:26] VITALS: BP 123/71
[2021-06-22] MEDS: QUEtiapine FUMARATE 200 MG TABLET PO SCH ×2 (08:32→16:08)
[2021-06-22] MEDS: SERTRALINE HCL 100 MG TABLET PO SCH ×2 (08:32→16:08)
[2021-06-22] MEDS: LORazepam 2 MG TABLET PO PRN (08:32)
[2021-06-22 08:58] VITALS: BP 155/99
[2021-06-22 16:18] VITALS: BP 133/74
[2021-06-23 06:33] VITALS: BP 143/76
[2021-06-23 08:26] VITALS: BP 142/85
[2021-06-23] MEDS: QUEtiapine FUMARATE 200 MG TABLET PO SCH ×2 (09:09→16:08)
[2021-06-23] MEDS: SERTRALINE HCL 100 MG TABLET PO SCH ×2 (09:09→16:08)
[2021-06-23] MEDS ORDERED: SERT-162 PO (12:57)
== END 2021-06-23 16:11 | disposition home or self-care (01) | DRG 750 ==
LOC: EMS 17:09 → B2S 06-21 00:22
PROVIDERS: ADMIT Psychiatry & Neurology Psychiatry; ATTEND Psychiatry & Neurology Psychiatry
DX: F25.9 Schizoaffective disorder, unspecified (principal); R45.851 Suicidal ideations; Z68.41 Body mass index [BMI] 40.0-44.9, adult; E78.5 Hyperlipidemia, unspecified; I10 Essential (primary) hypertension; K21.9 Gastro-esophageal reflux disease without esophagitis; E66.9 Obesity, unspecified; D64.9 Anemia, unspecified; Z20.822 Contact with and (suspected) exposure to COVID-19; F41.9 Anxiety disorder, unspecified
CPT/HCPCS: 81001; 99285

== ENCOUNTER 2021-08-08 14:47 | Inpatient (IN) | payer MEDICAID, OTHER ==
[~2021-08-08] VITALS: Ht 160 cm; Wt 112.8 kg
[2021-08-08 15:41] LABS: APPEARANCE,URINE CLOUDY (CLEAR); BILIRUBIN,URINE NEGATIVE (NEGATIVE); GLUCOSE, URINE (UA) NEGATIVE (NEGATIVE); KETONES,URINE NEGATIVE (NEGATIVE); LEUKOCYTE ESTERASE ,URINE NEGATIVE (NEGATIVE); NITRATE,URINE NEGATIVE (NEGATIVE); OCCULT BLOOD,URINE NEGATIVE (NEGATIVE); PH,URINE 6.5 (5.0-8.0); PROTEIN,URINE NEGATIVE (NEGATIVE); UROBILINOGEN,URINE 0.2 mg/dL (<=1.0)
[2021-08-08 15:54] LABS: AMPHET/METH SCREEN,URINE NEGATIVE (NEGATIVE); BARBITURATE SCREEN, URINE NEGATIVE (NEGATIVE); BENZODIAZEPINES SCREEN,URINE POSITIVE (NEGATIVE); CANNABINOID SCREEN,URINE NEGATIVE (NEGATIVE); COCAINE SCREEN,URINE NEGATIVE (NEGATIVE); METHADONE SCREEN, URINE NEGATIVE (NEGATIVE); OPIATE SCREEN,URINE NEGATIVE (NEGATIVE)
[2021-08-08 15:59] LABS: PHENCYCLIDINE SCREEN,URINE NEGATIVE (NEGATIVE)
[2021-08-08 16:16] LABS: BACTERIA,URINE None Seen /HPF (None Seen); RBC,URINE None Seen /HPF (0-2); SQUAMOUS EPITHELIAL CELL,UR Few /LPF (None Seen); WBC,URINE None Seen /HPF (0-5)
[2021-08-08] MEDS ORDERED: HALOPERIDOL 5 MG TABLET PO PRN (16:30)
[2021-08-08] MEDS ORDERED: ZOLPIDEM TARTRATE 10 MG TABLET PO PRN (16:30)
[2021-08-08 16:46] LABS: COVID AG,FIA SOURCE NASOPHARYNGEAL
[2021-08-08] MEDS: LORazepam 2 MG TABLET PO PRN (17:58)
[2021-08-08 19:59] VITALS: BP 137/59
[2021-08-09 00:09] VITALS: BP 132/63
[2021-08-09] MEDS: LORazepam 2 MG TABLET PO PRN (01:57)
[2021-08-09 08:44] VITALS: BP 133/72
[2021-08-09] MEDS ORDERED: CloNIDine HCL 0.1 MG TABLET PO PRN (09:45)
[2021-08-09] MEDS ORDERED: ACETAMINOPHEN 325 MG TABLET PO PRN (09:45)
[2021-08-09] MEDS ORDERED: ALBUTEROL SULFATE HFA 90 MCG/PUFF 8 GM INHALER IH PRN (09:45)
[2021-08-09] MEDS ORDERED: LOPERAMIDE HCL 2 MG CAPSULE PO PRN (09:45)
[2021-08-09] MEDS ORDERED: PETROLATUM,WHITE 28 GM JELLY TP PRN (09:45)
[2021-08-09] MEDS ORDERED: DOCUSATE SODIUM 100 MG CAPSULE PO PRN (09:45)
[2021-08-09] MEDS ORDERED: IBUPROFEN 400 MG TABLET PO PRN (09:45)
[2021-08-09] MEDS ORDERED: NICOTINE 14 MG/24 HOUR PATCH TD PRN (09:45)
[2021-08-09] MEDS ORDERED: MAGNESIUM HYDROXIDE SUSPENSION 30 ML UDCUP PO PRN (09:45)
[2021-08-09] MEDS ORDERED: MAG HYDROX/AL HYDROX/SIMETH ES 30 ML SUSPENSION UDCUP PO PRN (09:45)
[2021-08-09] MEDS ORDERED: ONDANSETRON HCL 4 MG TABLET PO PRN (09:45)
[2021-08-09] MEDS ORDERED: GuaiFENesin/D-METHORPHAN [SUGAR-FREE] 200-20MG/10 ML SYRUP UDCUP PO PRN (09:45)
[2021-08-09] MEDS: QUEtiapine FUMARATE 200 MG TABLET PO SCH ×2 (11:00→20:05)
[2021-08-09] MEDS: SERTRALINE HCL 100 MG TABLET PO SCH ×2 (11:00→20:05)
[2021-08-09 16:20] VITALS: BP 134/81
[2021-08-10 06:09] VITALS: BP 130/79
[2021-08-10 08:32] VITALS: BP 168/95
[2021-08-10] MEDS: SERTRALINE HCL 100 MG TABLET PO SCH ×2 (09:01→20:30)
[2021-08-10] MEDS: QUEtiapine FUMARATE 200 MG TABLET PO SCH ×2 (09:01→20:30)
[2021-08-10 16:13] VITALS: BP 139/86
[2021-08-11 01:18] VITALS: BP 128/82
[2021-08-11] MEDS: QUEtiapine FUMARATE 200 MG TABLET PO SCH (08:45)
[2021-08-11] MEDS: SERTRALINE HCL 100 MG TABLET PO SCH (08:46)
[2021-08-11 08:47] VITALS: BP 116/74
[2021-08-11] MEDS ORDERED: SERT-162 PO (10:51)
[2021-08-11] MEDS ORDERED: QUET200T PO (10:51)
== END 2021-08-11 16:40 | disposition home or self-care (01) | DRG 750 ==
LOC: EMS 14:52 → B3A 16:54
DX: F25.1 Schizoaffective disorder, depressive type (principal); R45.851 Suicidal ideations; Z68.44 Body mass index [BMI] 60.0-69.9, adult; D64.9 Anemia, unspecified; I10 Essential (primary) hypertension; E66.9 Obesity, unspecified; E78.5 Hyperlipidemia, unspecified; K21.9 Gastro-esophageal reflux disease without esophagitis; Z20.822 Contact with and (suspected) exposure to COVID-19; Z53.20 Procedure and treatment not carried out because of patient's decision for unspecified reasons; Z79.899 Other long term (current) drug therapy; Z81.8 Family history of other mental and behavioral disorders; Z88.8 Allergy status to other drugs, medicaments and biological substances
CPT/HCPCS: 81001; 99285

== ENCOUNTER 2021-09-09 16:03 | Inpatient (IN) | payer MEDICAID, OTHER ==
[~2021-09-09] VITALS: Ht 160 cm; Wt 113.4 kg
[2021-09-09] MEDS ORDERED: LORazepam 1 MG TABLET PO ONE (18:15)
[2021-09-09 19:42] LABS: COVID AG,FIA SOURCE NASOPHARYNGEAL
[2021-09-09] MEDS ORDERED: ZOLPIDEM TARTRATE 10 MG TABLET PO PRN (20:30)
[2021-09-09] MEDS ORDERED: HALOPERIDOL 5 MG TABLET PO PRN (20:30)
[2021-09-09 21:55] VITALS: BP 131/84
[2021-09-09] MEDS ORDERED: INFLUENZA VIRUS VACCINE QVS 2021-22 (6MO+)/PF 60 MCG/0.5 ML SYRINGE IM. ONE (23:30)
[2021-09-10 01:53] VITALS: BP 126/81
[2021-09-10] MEDS: LORazepam 2 MG TABLET PO PRN ×2 (03:23→09:10)
[2021-09-10 08:39] VITALS: BP 120/71
[2021-09-10] MEDS ORDERED: LOPERAMIDE HCL 2 MG CAPSULE PO PRN (10:15)
[2021-09-10] MEDS ORDERED: CloNIDine HCL 0.1 MG TABLET PO PRN (10:15)
[2021-09-10] MEDS ORDERED: NICOTINE 14 MG/24 HOUR PATCH TD PRN (10:15)
[2021-09-10] MEDS ORDERED: GuaiFENesin/D-METHORPHAN [SUGAR-FREE] 200-20MG/10 ML SYRUP UDCUP PO PRN (10:15)
[2021-09-10] MEDS ORDERED: MAG HYDROX/AL HYDROX/SIMETH ES 30 ML SUSPENSION UDCUP PO PRN (10:15)
[2021-09-10] MEDS ORDERED: IBUPROFEN 400 MG TABLET PO PRN (10:15)
[2021-09-10] MEDS ORDERED: MAGNESIUM HYDROXIDE SUSPENSION 30 ML UDCUP PO PRN (10:15)
[2021-09-10] MEDS ORDERED: PETROLATUM,WHITE 28 GM JELLY TP PRN (10:15)
[2021-09-10] MEDS ORDERED: ACETAMINOPHEN 325 MG TABLET PO PRN (10:15)
[2021-09-10] MEDS ORDERED: DOCUSATE SODIUM 100 MG CAPSULE PO PRN (10:15)
[2021-09-10] MEDS ORDERED: ONDANSETRON HCL 4 MG TABLET PO PRN (10:15)
[2021-09-10 16:17] VITALS: BP 144/101
[2021-09-10] MEDS: QUEtiapine FUMARATE 200 MG TABLET PO SCH (20:36)
[2021-09-10] MEDS: SERTRALINE HCL 100 MG TABLET PO SCH (20:36)
[2021-09-11 02:26] VITALS: BP 131/84
[2021-09-11] MEDS: SERTRALINE HCL 100 MG TABLET PO SCH ×2 (08:24→16:38)
[2021-09-11] MEDS: QUEtiapine FUMARATE 200 MG TABLET PO SCH ×2 (08:24→16:38)
[2021-09-11 08:28] VITALS: BP 148/68
[2021-09-11 10:30] VITALS: BP 136/74
[2021-09-12 03:37] VITALS: BP 132/82
[2021-09-12] MEDS: SERTRALINE HCL 100 MG TABLET PO SCH (08:14)
[2021-09-12] MEDS: QUEtiapine FUMARATE 200 MG TABLET PO SCH (08:14)
[2021-09-12 08:39] VITALS: BP 122/73
== END 2021-09-12 16:55 | disposition home or self-care (01) | DRG 750 ==
LOC: EMS 16:09 → B3A 20:00 → EMS 21:25 → B3A 09-10 20:27
DX: F25.1 Schizoaffective disorder, depressive type (principal); R45.851 Suicidal ideations; R45.850 Homicidal ideations; Z53.20 Procedure and treatment not carried out because of patient's decision for unspecified reasons; K21.9 Gastro-esophageal reflux disease without esophagitis; I10 Essential (primary) hypertension; D64.9 Anemia, unspecified; E66.9 Obesity, unspecified; F41.9 Anxiety disorder, unspecified; Z20.822 Contact with and (suspected) exposure to COVID-19; Z79.899 Other long term (current) drug therapy; Z81.8 Family history of other mental and behavioral disorders; Z68.41 Body mass index [BMI] 40.0-44.9, adult
CPT/HCPCS: 87081; 99285

== ENCOUNTER 2022-03-24 17:26 | Inpatient (IN) | payer MEDICAID, OTHER ==
[~2022-03-24] VITALS: Ht 160 cm; Wt 107.2 kg
[2022-03-24] MEDS ORDERED: HALOPERIDOL 5 MG TABLET PO PRN (22:15)
[2022-03-24] MEDS ORDERED: ZOLPIDEM TARTRATE 10 MG TABLET PO PRN (22:15)
[2022-03-25 00:27] LABS: COVID AG,FIA SOURCE NASAL SWAB
[2022-03-25] MEDS: LORazepam 2 MG TABLET PO PRN ×2 (00:50→10:20)
[2022-03-25 01:28] LABS: APPEARANCE,URINE HAZY (CLEAR); BILIRUBIN,URINE NEGATIVE (NEGATIVE); GLUCOSE, URINE (UA) NEGATIVE (NEGATIVE); KETONES,URINE NEGATIVE (NEGATIVE); LEUKOCYTE ESTERASE ,URINE SMALL (NEGATIVE); NITRATE,URINE NEGATIVE (NEGATIVE); OCCULT BLOOD,URINE NEGATIVE (NEGATIVE); PROTEIN,URINE 30-70 mg/dL (NEGATIVE); SPECIFIC GRAVITIY, URINE 1.028 (1.003-1.030); UROBILINOGEN,URINE <=1.0 mg/dL (<=1.0)
[2022-03-25 01:36] LABS: AMPHET/METH SCREEN,URINE NEGATIVE (NEGATIVE); BARBITURATE SCREEN, URINE NEGATIVE (NEGATIVE); BENZODIAZEPINES SCREEN,URINE POSITIVE (NEGATIVE); CANNABINOID SCREEN,URINE NEGATIVE (NEGATIVE); COCAINE SCREEN,URINE NEGATIVE (NEGATIVE); METHADONE SCREEN, URINE NEGATIVE (NEGATIVE); OPIATE SCREEN,URINE NEGATIVE (NEGATIVE)
[2022-03-25 01:38] LABS: PHENCYCLIDINE SCREEN,URINE NEGATIVE (NEGATIVE)
[2022-03-25 01:44] LABS: BACTERIA,URINE Few /HPF (None Seen); RBC,URINE 0-2 /HPF (0-2)
[2022-03-25 03:17] VITALS: BP 130/74
[2022-03-25 08:30] VITALS: BP 136/86
[2022-03-25] MEDS: CEPHALEXIN MONOHYDRATE 500 MG CAPSULE PO SCH ×4 (09:00→17:00)
[2022-03-25] MEDS: DiphenhydrAMINE HCL 25 MG CAPSULE PO SCH ×2 (13:10→16:55)
[2022-03-25] MEDS ORDERED: CloNIDine HCL 0.1 MG TABLET PO PRN (15:45)
[2022-03-25] MEDS ORDERED: MAGNESIUM HYDROXIDE SUSPENSION 30 ML UDCUP PO PRN (15:45)
[2022-03-25] MEDS ORDERED: ONDANSETRON HCL 4 MG TABLET PO PRN (15:45)
[2022-03-25] MEDS ORDERED: DOCUSATE SODIUM 100 MG CAPSULE PO PRN (15:45)
[2022-03-25] MEDS ORDERED: PETROLATUM,WHITE 28 GM JELLY TP PRN (15:45)
[2022-03-25] MEDS ORDERED: ACETAMINOPHEN 325 MG TABLET PO PRN (15:45)
[2022-03-25] MEDS ORDERED: GuaiFENesin/D-METHORPHAN [SUGAR-FREE] 200-20MG/10 ML SYRUP UDCUP PO PRN (15:45)
[2022-03-25] MEDS ORDERED: IBUPROFEN 400 MG TABLET PO PRN (15:45)
[2022-03-25] MEDS ORDERED: NICOTINE 14 MG/24 HOUR PATCH TD PRN (15:45)
[2022-03-25] MEDS ORDERED: MAG HYDROX/AL HYDROX/SIMETH ES 30 ML SUSPENSION UDCUP PO PRN (15:45)
[2022-03-25] MEDS ORDERED: LOPERAMIDE HCL 2 MG CAPSULE PO PRN (15:45)
[2022-03-25 16:13] VITALS: BP 143/79
[2022-03-25] MEDS: QUEtiapine FUMARATE 100 MG TABLET PO SCH (16:55)
[2022-03-25] MEDS: SERTRALINE HCL 50 MG TABLET PO SCH ×2 (16:55→17:00)
[2022-03-26 01:26] VITALS: BP 134/78
[2022-03-26 08:15] VITALS: BP 113/72
[2022-03-26] MEDS: CEPHALEXIN MONOHYDRATE 500 MG CAPSULE PO SCH ×3 (09:00→17:00)
[2022-03-26] MEDS: DiphenhydrAMINE HCL 25 MG CAPSULE PO SCH ×3 (09:44→16:30)
[2022-03-26] MEDS: QUEtiapine FUMARATE 100 MG TABLET PO SCH ×2 (09:44→16:31)
[2022-03-26] MEDS: SERTRALINE HCL 50 MG TABLET PO SCH ×2 (09:45→16:31)
[2022-03-26 16:26] VITALS: BP 140/74
[2022-03-26] MEDS ORDERED: QUET100T34 PO (16:36)
[2022-03-26] MEDS ORDERED: DIPH25 PO (16:36)
[2022-03-26] MEDS ORDERED: SERT-439 PO (16:36)
== END 2022-03-26 18:15 | disposition home or self-care (01) | DRG 750 ==
LOC: EMS 17:26 → B2S 03-25 01:26
PROVIDERS: ADMIT Psychiatry & Neurology Child & Adolescent Psychiatry; ATTEND Psychiatry & Neurology Child & Adolescent Psychiatry
DX: F25.1 Schizoaffective disorder, depressive type (principal); R45.851 Suicidal ideations; E66.9 Obesity, unspecified; Z20.822 Contact with and (suspected) exposure to COVID-19; K21.9 Gastro-esophageal reflux disease without esophagitis; K59.00 Constipation, unspecified; Z88.8 Allergy status to other drugs, medicaments and biological substances; Z68.41 Body mass index [BMI] 40.0-44.9, adult
CPT/HCPCS: 81001; 87086; 99285

== ENCOUNTER 2022-05-06 14:44 | Inpatient (IN) | payer MEDICAID, OTHER ==
[~2022-05-06] VITALS: Ht 160 cm; Wt 108.5 kg
[~2022-05-06 14:44] MED LIST changes: +DIPH25 PO; +QUET100T34 PO; -QUET200T PO; -SERT-162 PO; +SERT-439 PO
[2022-05-06] MEDS ORDERED: LORA-999 PO (15:14)
[2022-05-06 16:09] LABS: AMPHET/METH SCREEN,URINE NEGATIVE (NEGATIVE); BARBITURATE SCREEN, URINE NEGATIVE (NEGATIVE); BENZODIAZEPINES SCREEN,URINE POSITIVE (NEGATIVE); CANNABINOID SCREEN,URINE NEGATIVE (NEGATIVE); COCAINE SCREEN,URINE NEGATIVE (NEGATIVE); METHADONE SCREEN, URINE NEGATIVE (NEGATIVE); OPIATE SCREEN,URINE NEGATIVE (NEGATIVE); PHENCYCLIDINE SCREEN,URINE NEGATIVE (NEGATIVE)
[2022-05-06 17:37] LABS: COVID AG,FIA SOURCE NASOPHARYNGEAL
[2022-05-06] MEDS ORDERED: ZOLPIDEM TARTRATE 10 MG TABLET PO PRN (20:00)
[2022-05-06] MEDS ORDERED: HALOPERIDOL 5 MG TABLET PO PRN (20:00)
[2022-05-06] MEDS ORDERED: LORazepam 1 MG TABLET PO ONE (20:00)
[2022-05-07 00:40] VITALS: BP 131/79
[2022-05-07 01:19] VITALS: BP 131/79
[2022-05-07] MEDS ORDERED: PNEUMOCOCCAL VACCINE POLYVALENT 0.5 ML VIAL [PPSV23] IM. ONE (02:15)
[2022-05-07] MEDS ORDERED: MAGNESIUM HYDROXIDE SUSPENSION 30 ML UDCUP PO PRN (06:45)
[2022-05-07] MEDS ORDERED: ONDANSETRON HCL 4 MG TABLET PO PRN (06:45)
[2022-05-07] MEDS ORDERED: MAG HYDROX/AL HYDROX/SIMETH ES 30 ML SUSPENSION UDCUP PO PRN (06:45)
[2022-05-07] MEDS ORDERED: DOCUSATE SODIUM 100 MG CAPSULE PO PRN (06:45)
[2022-05-07] MEDS ORDERED: PETROLATUM,WHITE 28 GM JELLY TP PRN (06:45)
[2022-05-07] MEDS ORDERED: GuaiFENesin/D-METHORPHAN [SUGAR-FREE] 200-20MG/10 ML SYRUP UDCUP PO PRN (06:45)
[2022-05-07] MEDS ORDERED: IBUPROFEN 400 MG TABLET PO PRN (06:45)
[2022-05-07] MEDS ORDERED: CloNIDine HCL 0.1 MG TABLET PO PRN (06:45)
[2022-05-07] MEDS ORDERED: NICOTINE 14 MG/24 HOUR PATCH TD PRN (06:45)
[2022-05-07] MEDS ORDERED: LOPERAMIDE HCL 2 MG CAPSULE PO PRN (06:45)
[2022-05-07] MEDS: LORazepam 2 MG TABLET PO PRN (08:35)
[2022-05-07 08:40] VITALS: BP 143/89
[2022-05-07] MEDS: QUEtiapine FUMARATE 100 MG TABLET PO SCH ×2 (12:14→20:07)
[2022-05-07 17:39] VITALS: BP 146/93
[2022-05-07] MEDS: SERTRALINE HCL 50 MG TABLET PO SCH (17:59)
[2022-05-07 19:06] LABS: GLUCOMETER DEV NAME(LOC) POC.BV
[2022-05-08 06:20] VITALS: BP 141/86
[2022-05-08 08:22] VITALS: BP 128/82
[2022-05-08] MEDS: QUEtiapine FUMARATE 100 MG TABLET PO SCH ×2 (08:34→20:32)
[2022-05-08] MEDS: SERTRALINE HCL 50 MG TABLET PO SCH ×2 (08:35→16:38)
[2022-05-08] MEDS: LORazepam 2 MG TABLET PO PRN (08:35)
[2022-05-08 16:09] VITALS: BP 138/83
[2022-05-08] MEDS: ACETAMINOPHEN 325 MG TABLET PO PRN (16:09)
[2022-05-09 00:34] VITALS: BP 136/76
[2022-05-09] MEDS: ACETAMINOPHEN 325 MG TABLET PO PRN (00:38)
[2022-05-09] MEDS: QUEtiapine FUMARATE 100 MG TABLET PO SCH ×2 (08:14→20:13)
[2022-05-09] MEDS: SERTRALINE HCL 50 MG TABLET PO SCH ×2 (08:14→16:56)
[2022-05-09 08:44] VITALS: BP 131/81
[2022-05-09 16:11] VITALS: BP 137/77
[2022-05-10 00:40] VITALS: BP 130/75
[2022-05-10 03:52] VITALS: BP 135/87
[2022-05-10] MEDS: LORazepam 2 MG TABLET PO PRN (03:53)
[2022-05-10 08:23] VITALS: BP 130/81
[2022-05-10] MEDS: SERTRALINE HCL 50 MG TABLET PO SCH (08:25)
[2022-05-10] MEDS: QUEtiapine FUMARATE 100 MG TABLET PO SCH (08:25)
[2022-05-10] MEDS ORDERED: SERT-439 PO (09:43)
[2022-05-10] MEDS ORDERED: QUET100T34 PO (09:43)
== END 2022-05-10 11:30 | disposition home or self-care (01) | DRG 750 ==
LOC: EMS 14:44 → B2S 05-07
PROVIDERS: ADMIT Psychiatry & Neurology Child & Adolescent Psychiatry; ATTEND Psychiatry & Neurology Child & Adolescent Psychiatry
DX: F25.1 Schizoaffective disorder, depressive type (principal); R45.851 Suicidal ideations; E78.5 Hyperlipidemia, unspecified; F10.10 Alcohol abuse, uncomplicated; F41.9 Anxiety disorder, unspecified; I10 Essential (primary) hypertension; I25.10 Atherosclerotic heart disease of native coronary artery without angina pectoris; Z20.822 Contact with and (suspected) exposure to COVID-19; K21.9 Gastro-esophageal reflux disease without esophagitis; Y90.9 Presence of alcohol in blood, level not specified; F19.10 Other psychoactive substance abuse, uncomplicated; Z71.51 Drug abuse counseling and surveillance of drug abuser; Z79.899 Other long term (current) drug therapy; Z71.41 Alcohol abuse counseling and surveillance of alcoholic; Z28.21 Immunization not carried out because of patient refusal; Z88.8 Allergy status to other drugs, medicaments and biological substances
CPT/HCPCS: 99285

== ENCOUNTER 2022-09-24 15:18 | Inpatient (IN) | payer MEDICAID, OTHER ==
[~2022-09-24] VITALS: Ht 160 cm; Wt 114.8 kg
[~2022-09-24 15:18] MED LIST changes: -DIPH25 PO
[2022-09-24] MEDS ORDERED: LORazepam 1 MG TABLET PO ONE (18:30)
[2022-09-24 20:00] LABS: COVID AG,FIA SOURCE NASAL SWAB
[2022-09-24] MEDS ORDERED: HALOPERIDOL 5 MG TABLET PO PRN (23:45)
[2022-09-24] MEDS ORDERED: INFLUENZA VIRUS VACCINE QVS 2022-23 (6MO+)/PF 60 MCG/0.5 ML SYRINGE IM. ONE (23:45)
[2022-09-25] VITALS: BP 109/64
[2022-09-25] MEDS: ZOLPIDEM TARTRATE 10 MG TABLET PO PRN ×2 (00:40→21:30)
[2022-09-25] MEDS ORDERED: PNEUMOCOCCAL VACCINE POLYVALENT 0.5 ML VIAL [PPSV23] IM. ONE (03:00)
[2022-09-25] MEDS: LORazepam 2 MG TABLET PO PRN (04:20)
[2022-09-25 08:25] VITALS: BP 140/92
[2022-09-25] MEDS ORDERED: MAGNESIUM HYDROXIDE SUSPENSION 30 ML UDCUP PO PRN (12:45)
[2022-09-25] MEDS ORDERED: CloNIDine HCL 0.1 MG TABLET PO PRN (12:45)
[2022-09-25] MEDS ORDERED: PETROLATUM,WHITE 28 GM JELLY TP PRN (12:45)
[2022-09-25] MEDS ORDERED: NICOTINE 14 MG/24 HOUR PATCH TD PRN (12:45)
[2022-09-25] MEDS ORDERED: ONDANSETRON HCL 4 MG TABLET PO PRN (12:45)
[2022-09-25] MEDS ORDERED: DOCUSATE SODIUM 100 MG CAPSULE PO PRN (12:45)
[2022-09-25] MEDS ORDERED: MAG HYDROX/AL HYDROX/SIMETH ES 30 ML SUSPENSION UDCUP PO PRN (12:45)
[2022-09-25] MEDS ORDERED: ACETAMINOPHEN 325 MG TABLET PO PRN (12:45)
[2022-09-25] MEDS ORDERED: LOPERAMIDE HCL 2 MG CAPSULE PO PRN (12:45)
[2022-09-25] MEDS ORDERED: GuaiFENesin/D-METHORPHAN [SUGAR-FREE] 200-20MG/10 ML SYRUP UDCUP PO PRN (12:45)
[2022-09-25] MEDS ORDERED: IBUPROFEN 400 MG TABLET PO PRN (12:45)
[2022-09-25] MEDS ORDERED: QUET400T13 PO (15:14)
[2022-09-25] MEDS ORDERED: SERT-440 PO (15:14)
[2022-09-25] MEDS ORDERED: DIPH50CA35 PO (15:18)
[2022-09-25] MEDS ORDERED: LORA-1000 PO (15:18)
[2022-09-25 21:01] VITALS: BP 156/91
[2022-09-25] MEDS: DiphenhydrAMINE HCL 25 MG CAPSULE PO SCH (21:30)
[2022-09-25] MEDS: QUEtiapine FUMARATE 200 MG TABLET PO SCH (21:30)
[2022-09-25] MEDS: SERTRALINE HCL 100 MG TABLET PO SCH (21:45)
[2022-09-26 08:02] VITALS: BP 137/86
[2022-09-26] MEDS: SERTRALINE HCL 100 MG TABLET PO SCH ×2 (08:50→20:07)
[2022-09-26] MEDS: QUEtiapine FUMARATE 200 MG TABLET PO SCH ×2 (08:50→20:07)
[2022-09-26] MEDS: DiphenhydrAMINE HCL 25 MG CAPSULE PO SCH ×2 (08:50→20:07)
[2022-09-26] MEDS: LORazepam 2 MG TABLET PO PRN (08:55)
[2022-09-26] MEDS: ZOLPIDEM TARTRATE 10 MG TABLET PO PRN (20:14)
[2022-09-26 20:18] VITALS: BP 126/80
[2022-09-27] MEDS: QUEtiapine FUMARATE 200 MG TABLET PO SCH ×2 (08:23→20:23)
[2022-09-27] MEDS: DiphenhydrAMINE HCL 25 MG CAPSULE PO SCH ×2 (08:23→20:23)
[2022-09-27] MEDS: SERTRALINE HCL 100 MG TABLET PO SCH ×2 (08:33→20:23)
[2022-09-27] MEDS: LORazepam 2 MG TABLET PO PRN (08:38)
[2022-09-27] MEDS: ZOLPIDEM TARTRATE 10 MG TABLET PO PRN (20:23)
[2022-09-28 08:15] VITALS: BP 157/92
[2022-09-28] MEDS: QUEtiapine FUMARATE 200 MG TABLET PO SCH (09:10)
[2022-09-28] MEDS: DiphenhydrAMINE HCL 25 MG CAPSULE PO SCH (09:10)
[2022-09-28] MEDS: SERTRALINE HCL 100 MG TABLET PO SCH (09:11)
[2022-09-28] MEDS ORDERED: SERT-440 PO (09:14)
[2022-09-28] MEDS ORDERED: QUET200T30 PO (09:14)
[2022-09-28] MEDS ORDERED: DIPH50CA35 PO (09:14)
== END 2022-09-28 14:00 | disposition home or self-care (01) | DRG 750 ==
LOC: EMS 15:18 → B3A 22:17
PROVIDERS: ADMIT Psychiatry & Neurology Psychiatry; ATTEND Psychiatry & Neurology Psychiatry
DX: F25.1 Schizoaffective disorder, depressive type (principal); R45.851 Suicidal ideations; D64.9 Anemia, unspecified; Z20.822 Contact with and (suspected) exposure to COVID-19; E78.5 Hyperlipidemia, unspecified; I10 Essential (primary) hypertension; I25.10 Atherosclerotic heart disease of native coronary artery without angina pectoris; K21.9 Gastro-esophageal reflux disease without esophagitis; R73.03 Prediabetes; Z79.899 Other long term (current) drug therapy; Z81.8 Family history of other mental and behavioral disorders; Z28.21 Immunization not carried out because of patient refusal; Z88.8 Allergy status to other drugs, medicaments and biological substances
CPT/HCPCS: 99285; Z7502; Z7610

== ENCOUNTER 2023-01-29 16:27 | Inpatient (IN) | payer MEDICAID, OTHER ==
[~2023-01-29] VITALS: Ht 160 cm; Wt 111.0 kg
[~2023-01-29 16:27] MED LIST changes: +DIPH50CA35 PO; -QUET100T34 PO; +QUET200T30 PO; -SERT-439 PO; +SERT-440 PO
[2023-01-29] MEDS ORDERED: LORA-1000 PO (17:06)
[2023-01-29] MEDS: HALOPERIDOL 5 MG TABLET PO ONE ×2 (17:12→17:15)
[2023-01-29] MEDS ORDERED: LORazepam 1 MG TABLET PO ONE (17:15)
[2023-01-29 17:16] LABS: AMPHET/METH SCREEN,URINE NEGATIVE (NEGATIVE); BARBITURATE SCREEN, URINE NEGATIVE (NEGATIVE); BENZODIAZEPINES SCREEN,URINE NEGATIVE (NEGATIVE); CANNABINOID SCREEN,URINE NEGATIVE (NEGATIVE); COCAINE SCREEN,URINE NEGATIVE (NEGATIVE); METHADONE SCREEN, URINE NEGATIVE (NEGATIVE); OPIATE SCREEN,URINE NEGATIVE (NEGATIVE); PHENCYCLIDINE SCREEN,URINE NEGATIVE (NEGATIVE)
[2023-01-29] MEDS ORDERED: HALOPERIDOL 5 MG TABLET PO PRN (20:30)
[2023-01-29] MEDS ORDERED: ZOLPIDEM TARTRATE 10 MG TABLET PO PRN (20:30)
[2023-01-29 21:19] LABS: COVID AG,FIA SOURCE NASOPHARYNGEAL
[2023-01-29 23:18] LABS: APPEARANCE,URINE CLEAR (CLEAR); BILIRUBIN,URINE NEGATIVE (NEGATIVE); GLUCOSE, URINE (UA) NEGATIVE (NEGATIVE); KETONES,URINE NEGATIVE (NEGATIVE); LEUKOCYTE ESTERASE ,URINE NEGATIVE (NEGATIVE); NITRATE,URINE NEGATIVE (NEGATIVE); OCCULT BLOOD,URINE NEGATIVE (NEGATIVE); PROTEIN,URINE NEGATIVE (NEGATIVE); SPECIFIC GRAVITIY, URINE 1.007 (1.003-1.030); UROBILINOGEN,URINE <=1.0 mg/dL (<=1.0)
[2023-01-30 00:29] VITALS: BP 120/57
[2023-01-30] MEDS ORDERED: PETROLATUM,WHITE 28 GM JELLY TP PRN (07:45)
[2023-01-30] MEDS ORDERED: MAG HYDROX/AL HYDROX/SIMETH ES 30 ML SUSPENSION UDCUP PO PRN (07:45)
[2023-01-30] MEDS ORDERED: NICOTINE 14 MG/24 HOUR PATCH TD PRN (07:45)
[2023-01-30] MEDS ORDERED: ALBUTEROL SULFATE HFA 90 MCG/PUFF 8 GM INHALER IH PRN (07:45)
[2023-01-30] MEDS ORDERED: CloNIDine HCL 0.1 MG TABLET PO PRN (07:45)
[2023-01-30] MEDS ORDERED: MAGNESIUM HYDROXIDE SUSPENSION 30 ML UDCUP PO PRN (07:45)
[2023-01-30] MEDS ORDERED: ACETAMINOPHEN 325 MG TABLET PO PRN (07:45)
[2023-01-30] MEDS ORDERED: GuaiFENesin/D-METHORPHAN [SUGAR-FREE] 200-20MG/10 ML SYRUP UDCUP PO PRN (07:45)
[2023-01-30] MEDS ORDERED: LOPERAMIDE HCL 2 MG CAPSULE PO PRN (07:45)
[2023-01-30] MEDS ORDERED: DOCUSATE SODIUM 100 MG CAPSULE PO PRN (07:45)
[2023-01-30] MEDS ORDERED: IBUPROFEN 400 MG TABLET PO PRN (07:45)
[2023-01-30] MEDS ORDERED: ONDANSETRON HCL 4 MG TABLET PO PRN (07:45)
[2023-01-30 09:45] VITALS: BP 145/65
[2023-01-30] MEDS: QUEtiapine FUMARATE 200 MG TABLET PO SCH ×2 (09:45→20:34)
[2023-01-30] MEDS: SERTRALINE HCL 100 MG TABLET PO SCH ×2 (09:45→20:33)
[2023-01-30] MEDS: DiphenhydrAMINE HCL 50 MG CAPSULE PO SCH ×2 (09:45→20:33)
[2023-01-30 20:36] VITALS: BP 131/84
[2023-01-30] MEDS: LORazepam 2 MG TABLET PO PRN (22:50)
[2023-01-31] MEDS: SERTRALINE HCL 100 MG TABLET PO SCH ×2 (09:06→21:58)
[2023-01-31] MEDS: QUEtiapine FUMARATE 200 MG TABLET PO SCH ×2 (09:06→21:58)
[2023-01-31] MEDS: DiphenhydrAMINE HCL 50 MG CAPSULE PO SCH ×2 (09:06→21:58)
[2023-01-31 09:07] VITALS: BP 137/93
[2023-01-31] MEDS: LORazepam 2 MG TABLET PO PRN (11:38)
[2023-01-31 20:00] VITALS: BP 112/61
[2023-02-01] MEDS: QUEtiapine FUMARATE 200 MG TABLET PO SCH (09:26)
[2023-02-01] MEDS: DiphenhydrAMINE HCL 50 MG CAPSULE PO SCH (09:26)
[2023-02-01] MEDS: SERTRALINE HCL 100 MG TABLET PO SCH (09:26)
[2023-02-01 10:10] VITALS: BP 138/88
== END 2023-02-01 16:05 | disposition left against medical advice (07) | DRG 750 ==
LOC: EMS 16:31 → B2S 22:46 → EMS 23:08
PROVIDERS: ADMIT Psychiatry & Neurology Psychiatry; ATTEND Psychiatry & Neurology Child & Adolescent Psychiatry
DX: F25.1 Schizoaffective disorder, depressive type (principal); Z68.43 Body mass index [BMI] 50.0-59.9, adult; R45.851 Suicidal ideations; E78.5 Hyperlipidemia, unspecified; E66.01 Morbid (severe) obesity due to excess calories; E11.9 Type 2 diabetes mellitus without complications; F32.A Depression, unspecified; F41.9 Anxiety disorder, unspecified; I10 Essential (primary) hypertension; K21.9 Gastro-esophageal reflux disease without esophagitis; Z20.822 Contact with and (suspected) exposure to COVID-19; Z81.8 Family history of other mental and behavioral disorders; Z86.73 Personal history of transient ischemic attack (TIA), and cerebral infarction without residual deficits; Z79.899 Other long term (current) drug therapy; Z88.8 Allergy status to other drugs, medicaments and biological substances
CPT/HCPCS: 80307; 81003; 99285

== ENCOUNTER 2023-06-19 07:51 | Emergency (ER) | payer MEDICAID ==
[~2023-06-19] VITALS: Ht 160 cm; Wt 100.0 kg
[2023-06-19 07:56] VITALS: BP 127/78; PULSE 120; RESP 16; TEMP 98.3
[2023-06-19] MEDS ORDERED: QUET400T13 PO (07:59)
[2023-06-19] MEDS ORDERED: SERT-440 PO (07:59)
[2023-06-19] MEDS ORDERED: DIPH-1243 PO (07:59)
[2023-06-19] MEDS ORDERED: LORA-1000 PO (07:59)
[2023-06-19 08:36] LABS: AMPHET/METH SCREEN,URINE NEGATIVE (NEGATIVE); BARBITURATE SCREEN, URINE NEGATIVE (NEGATIVE); BENZODIAZEPINES SCREEN,URINE POSITIVE (NEGATIVE); CANNABINOID SCREEN,URINE NEGATIVE (NEGATIVE); COCAINE SCREEN,URINE NEGATIVE (NEGATIVE); METHADONE SCREEN, URINE NEGATIVE (NEGATIVE); OPIATE SCREEN,URINE NEGATIVE (NEGATIVE); PHENCYCLIDINE SCREEN,URINE NEGATIVE (NEGATIVE)
== END 2023-06-19 10:41 | disposition left against medical advice (07) ==
LOC: EMS 07:52
DX: F25.9 Schizoaffective disorder, unspecified (principal); R45.851 Suicidal ideations; F32.A Depression, unspecified; K21.9 Gastro-esophageal reflux disease without esophagitis; Z88.8 Allergy status to other drugs, medicaments and biological substances
CPT/HCPCS: 80307; 99283

== ENCOUNTER 2023-06-20 10:33 | Inpatient (IN) | payer MEDICAID, OTHER ==
[~2023-06-20] VITALS: Ht 160 cm; Wt 99.8 kg
[~2023-06-20 10:33] MED LIST changes: +DIPH-1243 PO; -DIPH50CA35 PO; +LORA-1000 PO; -QUET200T30 PO; +QUET400T13 PO
[2023-06-20] MEDS: ZOLPIDEM TARTRATE 10 MG TABLET PO PRN (12:51)
[2023-06-20] MEDS: HALOPERIDOL 5 MG TABLET PO PRN ×2 (12:51→12:55)
[2023-06-20] MEDS: LORazepam 2 MG TABLET PO PRN (12:51)
[2023-06-20 15:25] LABS: APPEARANCE,URINE HAZY (CLEAR); BILIRUBIN,URINE NEGATIVE (NEGATIVE); GLUCOSE, URINE (UA) NEGATIVE (NEGATIVE); KETONES,URINE NEGATIVE (NEGATIVE); LEUKOCYTE ESTERASE ,URINE NEGATIVE (NEGATIVE); NITRATE,URINE NEGATIVE (NEGATIVE); OCCULT BLOOD,URINE NEGATIVE (NEGATIVE); PH,URINE 5.5 (5.0-8.0); PROTEIN,URINE TRACE mg/dL (NEGATIVE); SPECIFIC GRAVITIY, URINE 1.012 (1.003-1.030); UROBILINOGEN,URINE <=1.0 mg/dL (<=1.0)
[2023-06-20 15:29] LABS: AMPHET/METH SCREEN,URINE NEGATIVE (NEGATIVE); BARBITURATE SCREEN, URINE NEGATIVE (NEGATIVE); BENZODIAZEPINES SCREEN,URINE NEGATIVE (NEGATIVE); CANNABINOID SCREEN,URINE NEGATIVE (NEGATIVE); COCAINE SCREEN,URINE NEGATIVE (NEGATIVE); METHADONE SCREEN, URINE NEGATIVE (NEGATIVE); OPIATE SCREEN,URINE NEGATIVE (NEGATIVE); PHENCYCLIDINE SCREEN,URINE NEGATIVE (NEGATIVE)
[2023-06-20 17:50] LABS: COVID AG,FIA SOURCE NASAL SWAB
[2023-06-21] MEDS: LORazepam 2 MG TABLET PO PRN ×2 (00:35→23:54)
[2023-06-21] MEDS: HALOPERIDOL 5 MG TABLET PO PRN ×2 (00:35→23:54)
[2023-06-21 12:49] VITALS: BP 142/77; PULSE 86; RESP 17; TEMP 97.7; O2SAT 96
[2023-06-21 20:16] VITALS: BP 135/79; PULSE 94; RESP 19; TEMP 98.5; O2SAT 97
[2023-06-21] MEDS: ZOLPIDEM TARTRATE 10 MG TABLET PO PRN (20:29)
[2023-06-22 08:23] VITALS: BP 111/78; PULSE 86; RESP 18; TEMP 98; O2SAT 98
[2023-06-22] MEDS: HALOPERIDOL 5 MG TABLET PO PRN (09:16)
[2023-06-22] MEDS: LORazepam 2 MG TABLET PO PRN (09:16)
[2023-06-22] MEDS: QUEtiapine FUMARATE 200 MG TABLET PO SCH (20:29)
[2023-06-22] MEDS: SERTRALINE HCL 100 MG TABLET PO SCH (20:29)
[2023-06-22 20:53] VITALS: BP 135/78; PULSE 92; RESP 18; TEMP 98.3; O2SAT 95
[2023-06-23 08:11] VITALS: BP 125/72; PULSE 92; RESP 18; TEMP 97.6; O2SAT 95
[2023-06-23] MEDS: OMEPRAZOLE 20 MG CAPSULE PO SCH ×2 (08:57→09:00)
[2023-06-23] MEDS: DiphenhydrAMINE HCL 25 MG CAPSULE PO SCH ×2 (08:57→16:31)
[2023-06-23] MEDS: SERTRALINE HCL 100 MG TABLET PO SCH ×2 (08:58→20:30)
[2023-06-23] MEDS: AmLODIPine BESYLATE 2.5 MG TABLET PO SCH ×2 (08:58→09:00)
[2023-06-23] MEDS: QUEtiapine FUMARATE 200 MG TABLET PO SCH ×2 (09:00→20:30)
[2023-06-23 20:32] VITALS: BP 133/77; PULSE 96; RESP 18; TEMP 97.4; O2SAT 100
[2023-06-24 01:13] VITALS: BP 134/74; PULSE 89; RESP 18; TEMP 97.8; O2SAT 97
[2023-06-24] MEDS: ZOLPIDEM TARTRATE 10 MG TABLET PO PRN (01:16)
[2023-06-24] MEDS: LORazepam 2 MG TABLET PO PRN (01:59)
[2023-06-24 08:10] VITALS: BP 126/77; PULSE 90; RESP 18; TEMP 98; O2SAT 98
[2023-06-24] MEDS: OMEPRAZOLE 20 MG CAPSULE PO SCH (09:00)
[2023-06-24] MEDS: AmLODIPine BESYLATE 2.5 MG TABLET PO SCH (09:00)
[2023-06-24] MEDS: DiphenhydrAMINE HCL 25 MG CAPSULE PO SCH ×2 (09:24→16:37)
[2023-06-24] MEDS: SERTRALINE HCL 100 MG TABLET PO SCH ×2 (09:24→20:30)
[2023-06-24] MEDS: QUEtiapine FUMARATE 200 MG TABLET PO SCH ×2 (09:25→20:30)
[2023-06-24 20:16] VITALS: BP 120/75; PULSE 98; RESP 18; TEMP 97.8; O2SAT 98
[2023-06-25 04:38] VITALS: BP 121/73; PULSE 99; RESP 18; TEMP 97.6; O2SAT 97
[2023-06-25] MEDS: LORazepam 2 MG TABLET PO PRN ×2 (04:38→22:13)
[2023-06-25] MEDS: SERTRALINE HCL 100 MG TABLET PO SCH ×2 (08:27→20:39)
[2023-06-25] MEDS: QUEtiapine FUMARATE 200 MG TABLET PO SCH ×2 (08:27→20:39)
[2023-06-25] MEDS: OMEPRAZOLE 20 MG CAPSULE PO SCH ×2 (08:27→09:00)
[2023-06-25 08:28] VITALS: BP 129/71; PULSE 93; RESP 17; TEMP 98; O2SAT 97
[2023-06-25] MEDS: DiphenhydrAMINE HCL 25 MG CAPSULE PO SCH ×2 (08:28→16:13)
[2023-06-25] MEDS: AmLODIPine BESYLATE 2.5 MG TABLET PO SCH ×2 (08:28→09:00)
[2023-06-25 20:18] VITALS: BP 131/79; PULSE 100; RESP 18; TEMP 97.9; O2SAT 96
[2023-06-25] MEDS: ZOLPIDEM TARTRATE 10 MG TABLET PO PRN (22:13)
[2023-06-26 04:43] VITALS: BP 128/86; PULSE 94; RESP 18; TEMP 97.6; O2SAT 98
[2023-06-26] MEDS: LORazepam 2 MG TABLET PO PRN ×2 (04:45→21:21)
[2023-06-26 08:33] VITALS: BP 129/79; PULSE 103; RESP 19; TEMP 97.4; O2SAT 98
[2023-06-26] MEDS: AmLODIPine BESYLATE 2.5 MG TABLET PO SCH (09:00)
[2023-06-26] MEDS: OMEPRAZOLE 20 MG CAPSULE PO SCH (09:00)
[2023-06-26] MEDS: SERTRALINE HCL 100 MG TABLET PO SCH ×2 (09:47→20:26)
[2023-06-26] MEDS: DiphenhydrAMINE HCL 25 MG CAPSULE PO SCH ×2 (09:47→16:23)
[2023-06-26] MEDS: QUEtiapine FUMARATE 200 MG TABLET PO SCH ×2 (09:48→20:26)
[2023-06-26 20:40] VITALS: BP 133/76; PULSE 101; RESP 18; TEMP 97.6; O2SAT 95
[2023-06-26] MEDS: ZOLPIDEM TARTRATE 10 MG TABLET PO PRN (21:21)
[2023-06-27] MEDS: DiphenhydrAMINE HCL 25 MG CAPSULE PO SCH ×2 (08:36→16:49)
[2023-06-27] MEDS: OMEPRAZOLE 20 MG CAPSULE PO SCH (08:37)
[2023-06-27] MEDS: QUEtiapine FUMARATE 200 MG TABLET PO SCH ×2 (08:37→20:37)
[2023-06-27] MEDS: SERTRALINE HCL 100 MG TABLET PO SCH ×2 (08:37→20:37)
[2023-06-27] MEDS: AmLODIPine BESYLATE 2.5 MG TABLET PO SCH (08:44)
[2023-06-27 08:52] VITALS: BP 133/77; PULSE 109; RESP 17; TEMP 97.2; O2SAT 98
[2023-06-27 20:42] VITALS: BP 121/75; PULSE 100; RESP 18; TEMP 97.2; O2SAT 97
[2023-06-27] MEDS: LORazepam 2 MG TABLET PO PRN (21:56)
[2023-06-27] MEDS: ZOLPIDEM TARTRATE 10 MG TABLET PO PRN (21:56)
[2023-06-28] MEDS: QUEtiapine FUMARATE 200 MG TABLET PO SCH ×2 (08:37→20:01)
[2023-06-28] MEDS: OMEPRAZOLE 20 MG CAPSULE PO SCH (08:37)
[2023-06-28] MEDS: DiphenhydrAMINE HCL 25 MG CAPSULE PO SCH ×2 (08:37→17:18)
[2023-06-28] MEDS: SERTRALINE HCL 100 MG TABLET PO SCH ×2 (08:37→20:01)
[2023-06-28] MEDS: AmLODIPine BESYLATE 2.5 MG TABLET PO SCH (08:44)
[2023-06-28 09:01] VITALS: BP 125/79; PULSE 101; RESP 17; TEMP 97.6; O2SAT 97
[2023-06-28] MEDS: MAG HYDROX/AL HYDROX/SIMETH 30 ML SUSP UDCUP PO PRN (16:36)
[2023-06-28 20:47] VITALS: BP 127/68; PULSE 100; RESP 18; TEMP 97.3; O2SAT 100
[2023-06-28] MEDS: ZOLPIDEM TARTRATE 10 MG TABLET PO PRN (21:07)
[2023-06-29] MEDS: LORazepam 2 MG TABLET PO PRN (01:49)
[2023-06-29 08:30] VITALS: BP 127/85; PULSE 90; RESP 18; TEMP 97.2; O2SAT 99
[2023-06-29] MEDS: OMEPRAZOLE 20 MG CAPSULE PO SCH (08:33)
[2023-06-29] MEDS: QUEtiapine FUMARATE 200 MG TABLET PO SCH ×2 (08:34→20:32)
[2023-06-29] MEDS: DiphenhydrAMINE HCL 25 MG CAPSULE PO SCH ×2 (08:34→17:13)
[2023-06-29] MEDS: SERTRALINE HCL 100 MG TABLET PO SCH ×2 (08:34→20:32)
[2023-06-29] MEDS: AmLODIPine BESYLATE 2.5 MG TABLET PO SCH (08:34)
[2023-06-29] MEDS: MAG HYDROX/AL HYDROX/SIMETH 30 ML SUSP UDCUP PO PRN ×2 (10:43→23:42)
[2023-06-29 20:18] VITALS: BP 112/76; PULSE 97; RESP 18; TEMP 97.8; O2SAT 99
[2023-06-29] MEDS: ZOLPIDEM TARTRATE 10 MG TABLET PO PRN (21:34)
[2023-06-30 08:28] VITALS: BP 108/64; PULSE 92; RESP 18; TEMP 98.2; O2SAT 94
[2023-06-30] MEDS: QUEtiapine FUMARATE 200 MG TABLET PO SCH ×2 (08:42→20:51)
[2023-06-30] MEDS: SERTRALINE HCL 100 MG TABLET PO SCH ×2 (08:42→20:51)
[2023-06-30] MEDS: DiphenhydrAMINE HCL 25 MG CAPSULE PO SCH ×2 (08:42→17:20)
[2023-06-30] MEDS: AmLODIPine BESYLATE 2.5 MG TABLET PO SCH (08:48)
[2023-06-30] MEDS: OMEPRAZOLE 20 MG CAPSULE PO SCH (08:48)
[2023-06-30 20:22] VITALS: BP 126/71; PULSE 103; RESP 19; TEMP 98.1; O2SAT 98
[2023-07-01 03:37] VITALS: BP 120/70; PULSE 99; RESP 18; TEMP 97.6; O2SAT 97
[2023-07-01] MEDS: LORazepam 2 MG TABLET PO PRN (03:38)
[2023-07-01] MEDS: OMEPRAZOLE 20 MG CAPSULE PO SCH (09:00)
[2023-07-01] MEDS: AmLODIPine BESYLATE 2.5 MG TABLET PO SCH (09:00)
[2023-07-01] MEDS: DiphenhydrAMINE HCL 25 MG CAPSULE PO SCH (09:47)
[2023-07-01] MEDS: QUEtiapine FUMARATE 200 MG TABLET PO SCH (09:47)
[2023-07-01] MEDS: SERTRALINE HCL 100 MG TABLET PO SCH (09:47)
[2023-07-01] MEDS ORDERED: AMLO2.5T96 PO (11:07)
[2023-07-01] MEDS ORDERED: SERT-440 PO (11:07)
[2023-07-01] MEDS ORDERED: QUET200T30 PO (11:07)
== END 2023-07-01 15:25 | disposition home or self-care (01) | DRG 750 ==
LOC: EMS 10:46 → B2S 06-21 10:30
PROVIDERS: ADMIT Psychiatry & Neurology Child & Adolescent Psychiatry; ATTEND Psychiatry & Neurology Child & Adolescent Psychiatry
DX: F25.1 Schizoaffective disorder, depressive type (principal); E11.9 Type 2 diabetes mellitus without complications; R45.851 Suicidal ideations; I10 Essential (primary) hypertension; K21.9 Gastro-esophageal reflux disease without esophagitis; I25.10 Atherosclerotic heart disease of native coronary artery without angina pectoris; Z20.822 Contact with and (suspected) exposure to COVID-19; E66.9 Obesity, unspecified; E78.5 Hyperlipidemia, unspecified; Z79.899 Other long term (current) drug therapy; Z88.8 Allergy status to other drugs, medicaments and biological substances; Z86.73 Personal history of transient ischemic attack (TIA), and cerebral infarction without residual deficits; Z68.38 Body mass index [BMI] 38.0-38.9, adult
CPT/HCPCS: 80307; 81003; 99285

== ENCOUNTER 2024-03-17 14:27 | Inpatient (IN) | payer MEDICAID, OTHER ==
[~2024-03-17] VITALS: Ht 160 cm; Wt 104.4 kg
[~2024-03-17 14:27] MED LIST changes: +AMLO2.5T96 PO; -DIPH-1243 PO; -LORA-1000 PO; +QUET200T30 PO; -QUET400T13 PO
[2024-03-17 23:31] LABS: PH,URINE DRUG SCREEN 5.5 (5.0-8.0)
[2024-03-17 23:38] LABS: ALCOHOL, URINE DRUG SCREEN NEGATIVE (NEGATIVE); AMPHET/METH SCREEN,URINE NEGATIVE (NEGATIVE); BARBITURATE SCREEN, URINE NEGATIVE (NEGATIVE); BENZODIAZEPINES SCREEN,URINE NEGATIVE (NEGATIVE); CANNABINOID SCREEN,URINE NEGATIVE (NEGATIVE); COCAINE SCREEN,URINE NEGATIVE (NEGATIVE); METHADONE SCREEN, URINE NEGATIVE (NEGATIVE); OPIATE SCREEN,URINE NEGATIVE (NEGATIVE); PHENCYCLIDINE SCREEN,URINE NEGATIVE (NEGATIVE)
[2024-03-18] MEDS: DiphenhydrAMINE HCL 25 MG CAPSULE PO ONE (01:44)
[2024-03-18] MEDS ORDERED: ZOLPIDEM TARTRATE 10 MG TABLET PO PRN (01:45)
[2024-03-18] MEDS ORDERED: HALOPERIDOL 5 MG TABLET PO PRN (01:45)
[2024-03-18] MEDS: LORazepam 2 MG TABLET PO ONE (01:45)
[2024-03-18] MEDS: HALOPERIDOL 5 MG TABLET PO ONE (01:46)
[2024-03-18 02:19] LABS: COVID AG,FIA SOURCE NASAL SWAB
[2024-03-18 02:39] LABS: SARS-COV2 (COVID) ANTIGEN,FIA Negative (Negative)
[2024-03-18 05:00] VITALS: BP 119/64; PULSE 94; RESP 18; TEMP 97.8; O2SAT 96
[2024-03-18] MEDS: PNEUMOCOCCAL VACCINE POLYVALENT 0.5 ML SYRINGE [PPSV23] IM. ONE (07:08)
[2024-03-18 08:35] VITALS: RESP 18
[2024-03-18] MEDS ORDERED: GuaiFENesin/D-METHORPHAN [SUGAR-FREE] 200-20MG/10 ML SYRUP UDCUP PO PRN (10:45)
[2024-03-18] MEDS ORDERED: MAG HYDROX/ALUMINUM HYD/SIMETH ES 30 ML SUSPENSION UDCUP PO PRN (10:45)
[2024-03-18] MEDS ORDERED: PETROLATUM,WHITE 28 GM JELLY TP PRN (10:45)
[2024-03-18] MEDS ORDERED: ONDANSETRON HCL 4 MG TABLET PO PRN (10:45)
[2024-03-18] MEDS ORDERED: LOPERAMIDE HCL 2 MG CAPSULE PO PRN (10:45)
[2024-03-18] MEDS ORDERED: MAGNESIUM HYDROXIDE SUSPENSION 30 ML UDCUP PO PRN (10:45)
[2024-03-18] MEDS ORDERED: ACETAMINOPHEN 325 MG TABLET PO PRN (10:45)
[2024-03-18] MEDS ORDERED: IBUPROFEN 400 MG TABLET PO PRN (10:45)
[2024-03-18] MEDS ORDERED: CloNIDine HCL 0.1 MG TABLET PO PRN (10:45)
[2024-03-18] MEDS ORDERED: NICOTINE 14 MG/24 HOUR PATCH TD PRN (10:45)
[2024-03-18] MEDS: SERTRALINE HCL 100 MG TABLET PO SCH (10:57)
[2024-03-18] MEDS: QUEtiapine FUMARATE 200 MG TABLET PO SCH (10:59)
[2024-03-18] MEDS: DOCUSATE SODIUM 100 MG CAPSULE PO PRN (11:06)
[2024-03-18 17:00] VITALS: BP 127/71; PULSE 90; RESP 16; TEMP 97.4; O2SAT 99
[2024-03-18 22:00] VITALS: BP 127/71; PULSE 90; RESP 16; TEMP 97.4; O2SAT 99
[2024-03-19 08:28] VITALS: BP 128/74; PULSE 84; RESP 16; TEMP 98; O2SAT 99
[2024-03-19] MEDS: AmLODIPine BESYLATE 2.5 MG TABLET PO SCH (09:39)
[2024-03-19] MEDS: LORazepam 2 MG TABLET PO PRN (09:49)
[2024-03-19 20:08] VITALS: BP 135/78; PULSE 98; RESP 20; TEMP 98.4; O2SAT 98
[2024-03-20 08:18] VITALS: BP 129/86; PULSE 90; RESP 18; TEMP 98.3; O2SAT 97
[2024-03-20 20:04] VITALS: BP 122/68; PULSE 100; RESP 18; TEMP 98.8; O2SAT 99
[2024-03-21 09:00] VITALS: BP 114/72; PULSE 104; RESP 18; TEMP 98; O2SAT 100
[2024-03-21] MEDS ORDERED: QUET200T30 PO (11:32)
[2024-03-21] MEDS ORDERED: SERT-440 PO (11:32)
== END 2024-03-21 16:35 | disposition home or self-care (01) | DRG 750 ==
LOC: EMS 14:30 → B3A 03-18 02:23
PROVIDERS: ADMIT Psychiatry & Neurology Psychiatry; ATTEND Psychiatry & Neurology Child & Adolescent Psychiatry
PROC: GZHZZZZ Group Psychotherapy (ICD-10-PCS; principal; 2024-03-18)
PROC: GZ52ZZZ Individual Psychotherapy, Cognitive (ICD-10-PCS; 2024-03-18)
DX: F25.1 Schizoaffective disorder, depressive type (principal); R45.851 Suicidal ideations; K21.9 Gastro-esophageal reflux disease without esophagitis; E66.9 Obesity, unspecified; Z20.822 Contact with and (suspected) exposure to COVID-19; G47.00 Insomnia, unspecified; I10 Essential (primary) hypertension; Z88.8 Allergy status to other drugs, medicaments and biological substances; Z79.899 Other long term (current) drug therapy; Z68.41 Body mass index [BMI] 40.0-44.9, adult
CPT/HCPCS: 80307

== ENCOUNTER 2025-06-15 15:24 | Inpatient (IN) | payer MEDICAID, OTHER ==
[~2025-06-15] VITALS: Ht 160 cm; Wt 102.1 kg
[~2025-06-15 15:24] MED LIST changes: +AMLO-257 PO; -AMLO2.5T96 PO; +DIPH50CA35 PO; +QUET200T PO; -QUET200T30 PO; +SERT-162 PO; -SERT-440 PO
[2025-06-15 16:10] LABS: COVID AG,FIA SOURCE NASAL SWAB
[2025-06-15 16:14] LABS: SARS-COV2 (COVID) ANTIGEN,FIA Negative (Negative)
[2025-06-15 20:10] VITALS: BP 149/89; PULSE 102; RESP 18; TEMP 97.8; O2SAT 99
[2025-06-15] MEDS: ZOLPIDEM TARTRATE 10 MG TABLET PO PRN (20:57)
[2025-06-16] MEDS ORDERED: PETROLATUM,WHITE 28 GM JELLY TP PRN (06:15)
[2025-06-16] MEDS ORDERED: ACETAMINOPHEN 325 MG TABLET PO PRN (06:15)
[2025-06-16] MEDS ORDERED: NICOTINE 14 MG/24 HOUR PATCH TD PRN (06:15)
[2025-06-16] MEDS ORDERED: MAG HYDROX/ALUMINUM HYD/SIMETH ES 30 ML SUSPENSION UDCUP PO PRN (06:15)
[2025-06-16] MEDS ORDERED: DOCUSATE SODIUM 100 MG CAPSULE PO PRN (06:15)
[2025-06-16] MEDS ORDERED: GuaiFENesin/D-METHORPHAN [SUGAR-FREE] 200-20MG/10 ML SYRUP UDCUP PO PRN (06:15)
[2025-06-16] MEDS ORDERED: ONDANSETRON 4 MG TABLET PO PRN (06:15)
[2025-06-16] MEDS ORDERED: LOPERAMIDE HCL 2 MG CAPSULE PO PRN (06:15)
[2025-06-16] MEDS ORDERED: IBUPROFEN 400 MG TABLET PO PRN (06:15)
[2025-06-16 08:32] VITALS: BP 139/92; PULSE 97; RESP 17; TEMP 97.7; O2SAT 97
[2025-06-16] MEDS: SERTRALINE HCL 100 MG TABLET PO SCH (11:28)
[2025-06-16 16:49] VITALS: BP 123/77; RESP 17; O2SAT 100
[2025-06-16 17:51] VITALS: BP 123/77; PULSE 100; RESP 17; TEMP 96.4; O2SAT 100
[2025-06-17 09:00] VITALS: BP 145/83; PULSE 76; RESP 18; TEMP 97.2; O2SAT 97
[2025-06-17] MEDS: MAGNESIUM HYDROXIDE SUSPENSION 30 ML UDCUP PO PRN (09:13)
[2025-06-17 20:55] VITALS: BP 132/79; PULSE 85; RESP 18; TEMP 97.5; O2SAT 98
[2025-06-18 08:49] VITALS: BP 135/87; RESP 17; TEMP 97.5; O2SAT 96
[2025-06-18] MEDS ORDERED: CYCLOBENZAPRINE HCL 10 MG TABLET PO PRN (13:45)
[2025-06-18 20:07] VITALS: BP 135/80; PULSE 98; RESP 18; TEMP 97.9; O2SAT 100
[2025-06-19 08:22] VITALS: BP 140/86; PULSE 97; RESP 18; TEMP 97.7; O2SAT 98
== END 2025-06-19 16:10 | disposition home or self-care (01) | DRG 750 ==
LOC: EMS 15:24 → B2S 19:45
PROVIDERS: ADMIT Psychiatry & Neurology Child & Adolescent Psychiatry; ATTEND Psychiatry & Neurology Child & Adolescent Psychiatry
PROC: GZHZZZZ Group Psychotherapy (ICD-10-PCS; principal; 2025-06-15)
PROC: GZ52ZZZ Individual Psychotherapy, Cognitive (ICD-10-PCS; 2025-06-18)
DX: F25.1 Schizoaffective disorder, depressive type (principal); E03.9 Hypothyroidism, unspecified; E55.9 Vitamin D deficiency, unspecified; E66.01 Morbid (severe) obesity due to excess calories; F41.9 Anxiety disorder, unspecified; G47.00 Insomnia, unspecified; I10 Essential (primary) hypertension; K21.9 Gastro-esophageal reflux disease without esophagitis; Z79.899 Other long term (current) drug therapy; Z91.51 Personal history of suicidal behavior; Z68.39 Body mass index [BMI] 39.0-39.9, adult
CPT/HCPCS: Z7610

== ENCOUNTER 2025-07-27 19:17 | Inpatient (IN) | payer MEDICAID, OTHER ==
[~2025-07-27] VITALS: Ht 160 cm; Wt 101.2 kg
[~2025-07-27 19:17] MED LIST changes: -AMLO-257 PO; -DIPH50CA35 PO
[2025-07-27] MEDS ORDERED: ZOLPIDEM TARTRATE 10 MG TABLET PO PRN (21:15)
[2025-07-27 21:47] LABS: COVID AG,FIA SOURCE NASAL SWAB
[2025-07-27 22:20] LABS: SARS-COV2 (COVID) ANTIGEN,FIA Negative (Negative)
[2025-07-27 22:34] LABS: APPEARANCE,URINE CLEAR (CLEAR); GLUCOSE, URINE (UA) NEGATIVE (NEGATIVE); LEUKOCYTE ESTERASE ,URINE NEGATIVE (NEGATIVE); NITRATE,URINE NEGATIVE (NEGATIVE); OCCULT BLOOD,URINE NEGATIVE (NEGATIVE); PH,URINE DRUG SCREEN 6.5 (5.0-8.0); SPECIFIC GRAVITIY, URINE 1.023 (1.003-1.030)
[2025-07-27 22:40] LABS: ALCOHOL, URINE DRUG SCREEN NEGATIVE (NEGATIVE); AMPHET/METH SCREEN,URINE NEGATIVE (NEGATIVE); BARBITURATE SCREEN, URINE NEGATIVE (NEGATIVE); CANNABINOID SCREEN,URINE NEGATIVE (NEGATIVE); COCAINE SCREEN,URINE NEGATIVE (NEGATIVE); METHADONE SCREEN, URINE NEGATIVE (NEGATIVE)
[2025-07-28 03:13] VITALS: BP 122/80; PULSE 97; RESP 17; TEMP 97.3; O2SAT 96
[2025-07-28] MEDS ORDERED: MAG HYDROX/ALUMINUM HYD/SIMETH ES 30 ML SUSPENSION UDCUP PO PRN (07:15)
[2025-07-28] MEDS ORDERED: DOCUSATE SODIUM 100 MG CAPSULE PO PRN (07:15)
[2025-07-28] MEDS ORDERED: GuaiFENesin/D-METHORPHAN [SUGAR-FREE] 200-20MG/10 ML SYRUP UDCUP PO PRN (07:15)
[2025-07-28] MEDS ORDERED: PETROLATUM,WHITE 28 GM JELLY TP PRN (07:15)
[2025-07-28] MEDS ORDERED: NICOTINE 14 MG/24 HOUR PATCH TD PRN (07:15)
[2025-07-28] MEDS ORDERED: LOPERAMIDE HCL 2 MG CAPSULE PO PRN (07:15)
[2025-07-28] MEDS ORDERED: ONDANSETRON 4 MG TABLET PO PRN (07:15)
[2025-07-28] MEDS ORDERED: ACETAMINOPHEN 325 MG TABLET PO PRN (07:15)
[2025-07-28] MEDS ORDERED: MAGNESIUM HYDROXIDE SUSPENSION 30 ML UDCUP PO PRN (07:15)
[2025-07-28] MEDS ORDERED: IBUPROFEN 400 MG TABLET PO PRN (07:15)
[2025-07-28 08:40] VITALS: BP 148/84; PULSE 95; RESP 17; TEMP 98; O2SAT 99
[2025-07-28] MEDS ORDERED: DIPH50CA35 PO (14:12)
[2025-07-28] MEDS: SERTRALINE HCL 100 MG TABLET PO SCH (16:40)
[2025-07-28 20:13] VITALS: BP 138/83; PULSE 80; RESP 17; TEMP 98; O2SAT 98
[2025-07-29 08:27] VITALS: BP 125/75; PULSE 76; RESP 17; TEMP 97.7; O2SAT 100
[2025-07-29 20:00] VITALS: BP 146/82; PULSE 93; RESP 17; TEMP 98; O2SAT 98
[2025-07-30 08:15] VITALS: BP 148/99; PULSE 97; RESP 16; TEMP 98; O2SAT 98
[2025-07-30 20:48] VITALS: BP 121/68; PULSE 98; RESP 18; TEMP 97; O2SAT 96
[2025-07-31 08:25] VITALS: BP 123/69; PULSE 100; RESP 16; TEMP 97.6; O2SAT 97
== END 2025-07-31 16:05 | disposition home or self-care (01) | DRG 761 ==
LOC: EMS 19:19 → B3A 07-28 01:27
PROVIDERS: ADMIT Psychiatry & Neurology Psychiatry; ATTEND Psychiatry & Neurology Psychiatry
PROC: GZHZZZZ Group Psychotherapy (ICD-10-PCS; principal; 2025-07-28)
PROC: GZ52ZZZ Individual Psychotherapy, Cognitive (ICD-10-PCS; 2025-07-31)
DX: F25.1 Schizoaffective disorder, depressive type (principal); R45.851 Suicidal ideations; E03.9 Hypothyroidism, unspecified; E55.9 Vitamin D deficiency, unspecified; E66.01 Morbid (severe) obesity due to excess calories; Z20.822 Contact with and (suspected) exposure to COVID-19; F41.9 Anxiety disorder, unspecified; I10 Essential (primary) hypertension; G47.00 Insomnia, unspecified; K21.9 Gastro-esophageal reflux disease without esophagitis; Z79.899 Other long term (current) drug therapy; Z91.51 Personal history of suicidal behavior; Z68.39 Body mass index [BMI] 39.0-39.9, adult
CPT/HCPCS: 80307; 81003